=== PATIENT | female | born 1960 | race Caucasian/White ===

== ENCOUNTER 2018-03-27 18:04 | Inpatient (IN) | payer MEDICARE, OTHER ==
[~2018-03-27] VITALS: Ht 154.9 cm; Wt 71.2 kg
--- NOTE | 2018-03-27 21:04 | RAD ---
Indication: Fall, headache and neck pain. Dizziness. Technique: Noncontrast CT head was obtained. CT cervical spine includes axial images and coronal and sagittal reformatted images. Preliminary report was given around 5 hours. Study was not able to be dictated until closer to 2054 hours secondary to the [employer] down time. No comparison is available. One or more of the following individualized dose reduction techniques were utilized for this examination: 1. Automated exposure control 2. Adjustment of the mA and/or kV according to patient size 3. Use of iterative reconstruction technique Findings: Head: There is mild prominence of the ventricles and sulci. There is no acute intracranial hemorrhage or extra-axial fluid collection. There is no mass effect or midline shift. Ross-white differentiation is preserved. There is no depressed skull fracture. The included paranasal sinuses and mastoid air cells are clear. Cervical spine: C2 and C3 are fused, likely developmental. Anterolisthesis at C3-4 C5 measures 4 mm. There is otherwise no malalignment. There is no fracture. Prevertebral soft tissues are within normal limits. Craniovertebral junction is unremarkable. Facet hypertrophy is greatest on the left at C3-C4. Endplate spurring is greatest at C4-C5 and C5-C6. There may be mild canal stenosis at C4-C5 and at C5-C6. Foraminal narrowing at C5-C6 on the left is at least moderate. There is mild emphysema in the lung apices. IMPRESSION: 1. No acute intracranial findings. Brain parenchymal volume loss. 2. Negative for fracture or dislocation in the cervical spine. Degenerative changes. Electronically signed by: Tod Ocampo MD (03/27/2018 9:01 PM) [facility]
[2018-03-27] MEDS ORDERED: SMZ/TMP 800/160MG TABLET. PO ONE (21:30)
--- NOTE | 2018-03-27 22:27 | ED.ADGEN ---
Past History Past Medical History: Dementia, Depression, Other Past Surgical History: Other Adult General Chief Complaint Chief Complaint ".. She been so confused.. falling... She had TBI.. in past when working at [employer]... and not be right since... She falling.... now an much more confused.. They told me to bring her here and she could admitted to the [facility]..." ( ) [facility] HPI Patient is a 58 year old female who presents with above hx and complaints. ( See hand written charting- computer down.) . Patient has been extremely confused and unable to care in for her in her present confused stated. Pt. Wondering. Has unsteady gait. Has fallen. Pt has hx TBI- and never returned to baseline per . was told to bring pt to ED fro eval and admission to [facility]. No pre approval fouind. Review of Systems Review of Systems Constitutional: Denies fever or chills [] Eyes: Denies change in visual acuity, redness, or eye pain [] HENT: Denies nasal congestion or sore throat [] Respiratory: Denies cough or shortness of breath [] Cardiovascular: No additional information not addressed in HPI [] GI: Denies abdominal pain, nausea, vomiting, bloody stools or diarrhea [] : Denies dysuria or hematuria [] Musculoskeletal: Denies back pain or joint pain [] Integument: Denies rash or skin lesions [] Neurologic: Denies headache, focal weakness or sensory changes [] Endocrine: Denies polyuria or polydipsia [] All other systems were reviewed and found to be within normal limits, except as documented in this note. Family History Family History Noncontributory Current Medications Current Medications See nursing for home medications Allergies Allergies Allergic to latex and rubber and niacin Physical Exam Physical Exam Constitutional: no acute distress, appears very confused HENT: Normocephalic, atraumatic, bilateral external ears normal, oropharynx moist, no oral exudates, nose normal. [] Eyes: PERRLA, EOMI, conjunctiva normal, no discharge. [] Neck: Normal range of motion, no tenderness, supple, no stridor. [] Cardiovascular:Heart rate regular rhythm, no murmur []PMI to the left Lungs & Thorax: Bilateral breath sounds equal at apex auscultation [] Abdomen: Bowel sounds normal, soft, no tenderness, no masses, no pulsatile masses. []Obese Skin: Warm, dry, no erythema, no rash. [] Back: No tenderness, no CVA tenderness. [] Extremities: No tenderness, no cyanosis, no clubbing, ROM intact, no edema. [] Very wide unsteady gait. Neurologic: Alert x 2 No gross motor and sensory function, no gross focal deficits noted. []GCS- 15. Discoordinated. Pt. obviously confused. Distracted. Psychologic: Affect anxious, judgement limited insight, mood depressed Current Patient Data Lab Results Laboratory Tests Test 03/27/18 18:45 White Blood Count 8.2 x10^3/uL (4.0-11.0) Red Blood Count 4.56 x10^6/uL (3.50-5.40) Hemoglobin 12.3 g/dL (12.0-15.5) Hematocrit 37.7 % (36.0-47.0) Mean Corpuscular Volume 83 fL (79-100) Mean Corpuscular Hemoglobin 27 pg (25-35) Mean Corpuscular Hemoglobin Concent 33 g/dL (31-37) Red Cell Distribution Width 16.8 % (11.5-14.5) H Platelet Count 255 x10^3/uL (140-400) Neutrophils (%) (Auto) 66 % (31-73) Lymphocytes (%) (Auto) 26 % (24-48) Monocytes (%) (Auto) 6 % (0-9) Eosinophils (%) (Auto) 2 % (0-3) Basophils (%) (Auto) 1 % (0-3) Neutrophils # (Auto) 5.4 x10^3uL (1.8-7.7) Lymphocytes # (Auto) 2.1 x10^3/uL (1.0-4.8) Monocytes # (Auto) 0.5 x10^3/uL (0.0-1.1) Eosinophils # (Auto) 0.1 x10^3/uL (0.0-0.7) Basophils # (Auto) 0.0 x10^3/uL (0.0-0.2) Erythrocyte Sedimentation Rate 42 (0-25) H Prothrombin Time 11.3 SEC (9.4-11.4) Prothrombin Time INR 1.1 (0.9-1.1) PTT 24 SEC (23-33) Urine Collection Type Unknown Urine Color Colorless Urine Clarity Hazy Urine pH 6.0 Urine Specific Royal <=1.005 Urine Protein Neg (NEG-TRACE) Urine Glucose (UA) Neg mg/dL (NEG) Urine Ketones (Stick) Neg mg/dL (NEG) Urine Blood Neg (NEG) Urine Nitrite Pos (NEG) Urine Bilirubin Neg (NEG) Urine Urobilinogen Dipstick 0.2 mg/dL (0.2 mg/dL) Urine Leukocyte Esterase Mod (NEG) Urine RBC Occ /HPF (0-2) Urine WBC 5-10 /HPF (0-4) Urine Squamous Epithelial Cells Mod /LPF Urine Bacteria Mod /HPF (0-FEW) Sodium Level 140 mmol/L (136-145) Potassium Level 3.5 mmol/L (3.5-5.1) Chloride Level 103 mmol/L (98-107) Carbon Dioxide Level 30 mmol/L (21-32) Anion Gap 7 (6-14) Blood Urea Nitrogen 12 mg/dL (7-20) Creatinine 0.9 mg/dL (0.6-1.0) Estimated GFR (Cockcroft-Gault) 64.3 Glucose Level 104 mg/dL (70-99) H Calcium Level 9.4 mg/dL (8.5-10.1) Troponin I Quantitative < 0.017 ng/mL (0-0.055) Lipase 63 U/L (73-393) L EKG EKG My interpretation EKG shows a sinus rhythm at 65 bpm. No acute morphology. Has a left axis.[] Radiology/Procedures Radiology/Procedures My interpretation of CT of head shows no shift, mass, edema, bleed, or fracture. Does have atrophy or than expected for her age. CT of neck shows degenerative joint changes.[] There is some narrowing at C4 and C5. No obvious acute findings fracture/ dislocation. Course & Med Decision Making Course & Med Decision Making Pertinent Labs and Imaging studies reviewed. (See chart for details) Discussed presentation, testing and treatment plan Dr. Katz- met for further evaluation and treatment. Consult to . [] Final Impression Final Impression 1. Mental Status Change 2. Hx. Traumatic Brain Injury 3. UTI. [] 4. Dementia? Dragon Disclaimer Dragon Disclaimer This electronic medical record was generated, in whole or in part, using a voice recognition dictation system. LUIS BARROSO MD Mar 27, 2018 22:27
[2018-03-27 23:49] VITALS: BP 157/73
--- NOTE | 2018-03-28 00:02 | RAD ---
PA and lateral chest x-rays HISTORY: Fall, headache, neck pain and dizziness and weakness. FINDINGS: Heart size normal. Mediastinal silhouette is normal. No pneumothorax, pulmonary opacities or pleural effusions. Bones are unremarkable. IMPRESSION: No acute process. Electronically signed by: Rehan Jane MD (03/27/2018 11:59 PM) [facility] [place]
[2018-03-28] MEDS ORDERED: TELM20TA4 PO (01:03)
[2018-03-28] MEDS ORDERED: CELE-20 PO (01:03)
[2018-03-28] MEDS ORDERED: OXYB15TA PO (01:03)
[2018-03-28] MEDS ORDERED: OMEG1CAP6 PO (01:03)
[2018-03-28] MEDS ORDERED: ATEN50TA PO (01:03)
[2018-03-28] MEDS ORDERED: RISP1TAB3 PO (01:03)
[2018-03-28] MEDS ORDERED: TRAM50TA PO (01:03)
[2018-03-28] MEDS ORDERED: CLON1TAB4 PO (01:03)
[2018-03-28] MEDS ORDERED: CYCL-331 PO (01:03)
[2018-03-28] MEDS ORDERED: MONT10TA9 PO (01:03)
[2018-03-28] MEDS ORDERED: PRAZ2CAP2 PO (01:03)
[2018-03-28] MEDS ORDERED: MIRT15TA3 PO (01:03)
[2018-03-28] MEDS ORDERED: PANT40TA5 PO (01:03)
[2018-03-28] MEDS ORDERED: CITA40TA5 PO (01:03)
[2018-03-28] MEDS ORDERED: CHOL10003 PO (01:57)
--- NOTE | 2018-03-28 03:56 | EKG ---
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
[2018-03-28 05:07] VITALS: BP 109/53
[2018-03-28 06:46] LABS: BASO % 1 % (0-3); EOS # 0.1 x10^3/uL (0.0-0.7); EOS % 2 % (0-3); HEMATOCRIT 37.7 % (36.0-47.0); HEMOGLOBIN 12.3 g/dL (12.0-15.5); LYMPH # 2.1 x10^3/uL (1.0-4.8); LYMPH % 26 % (24-48); MEAN CORPUSCULAR HEMOGLOBIN 27 pg (25-35); MEAN CORPUSCULAR HGB CONC 33 g/dL (31-37); MEAN CORPUSCULAR VOLUME 83 fL (79-100); MONO # 0.5 x10^3/uL (0.0-1.1); MONO % 6 % (0-9); NEUT # 5.4 x10^3uL (1.8-7.7); NEUT % 66 % (31-73); PLATELET COUNT 255 x10^3/uL (140-400); RED BLOOD COUNT 4.56 x10^6/uL (3.50-5.40); RED CELL DISTRIBUTION WIDTH 16.8 % (11.5-14.5); WHITE BLOOD COUNT 8.2 x10^3/uL (4.0-11.0)
[2018-03-28 06:47] LABS: SEDIMENTATION RATE 42 (0-25)
[2018-03-28 06:48] LABS: CALCIUM 9.4 mg/dL (8.5-10.1); CREATININE 0.9 mg/dL (0.6-1.0); GFR 64.3; POTASSIUM 3.5 mmol/L (3.5-5.1)
[2018-03-28 06:50] LABS: BASO % 0 % (0-3); EOS # 0.2 x10^3/uL (0.0-0.7); EOS % 2 % (0-3); HEMATOCRIT 35.9 % (36.0-47.0); HEMOGLOBIN 11.8 g/dL (12.0-15.5); LYMPH # 2.2 x10^3/uL (1.0-4.8); LYMPH % 27 % (24-48); MEAN CORPUSCULAR HEMOGLOBIN 27 pg (25-35); MEAN CORPUSCULAR HGB CONC 33 g/dL (31-37); MEAN CORPUSCULAR VOLUME 83 fL (79-100); MONO # 0.7 x10^3/uL (0.0-1.1); MONO % 9 % (0-9); NEUT # 5.3 x10^3uL (1.8-7.7); NEUT % 62 % (31-73); PLATELET COUNT 253 x10^3/uL (140-400); RED BLOOD COUNT 4.33 x10^6/uL (3.50-5.40); RED CELL DISTRIBUTION WIDTH 17.2 % (11.5-14.5); WHITE BLOOD COUNT 8.4 x10^3/uL (4.0-11.0)
[2018-03-28 06:53] LABS: BACTERIA,URINE MOD /HPF (0-FEW); BILIRUBIN,URINE NEG (NEG); GLUCOSE,URINE NEG (NEG); NITRITE,URINE POS (NEG); RBC,URINE OCC /HPF (0-2); UROBILINOGEN,URINE 0.2 mg/dL (0.2 mg/dL)
[2018-03-28 06:54] LABS: CLARITY,URINE HAZY; COLOR,URINE COLORLESS; SQUAMOUS EPITHELIAL CELL,UR MOD /LPF
[2018-03-28 07:09] LABS: CALCIUM 8.7 mg/dL (8.5-10.1); CREATININE 0.9 mg/dL (0.6-1.0); GFR 64.3; POTASSIUM 3.2 mmol/L (3.5-5.1)
[2018-03-28] MEDS ORDERED: traMADol 50 MG TABLET PO PRN (08:00)
[2018-03-28] MEDS ORDERED: CYCLOBENZAPRINE 10 MG TABLET. PO PRN (08:00)
[2018-03-28] MEDS ORDERED: POTASSIUM CHLORIDE 20 MEQ TABLET.ER. PO ONE (08:15)
[2018-03-28] MEDS: clonazePAM 1 MG TABLET PO SCH ×3 (08:20→19:48)
[2018-03-28] MEDS: OMEGA-3 FATTY ACIDS/FISH OIL 1,000 MG CAPSULE. PO SCH (08:20)
[2018-03-28] MEDS: CHOLECALCIFEROL (VITAMIN D3) 1,000 UNIT TABLET PO SCH (08:20)
[2018-03-28] MEDS: CITALOPRAM 20 MG TABLET. PO SCH (08:20)
[2018-03-28] MEDS: PANTOPRAZOLE 40 MG TABLET. PO SCH (08:20)
[2018-03-28] MEDS: CELECOXIB 100 MG CAPSULE PO SCH (09:12)
[2018-03-28] MEDS: OXYBUTYNIN CHLORIDE 5 MG TABLET PO SCH ×3 (09:13→19:49)
[2018-03-28 10:44] VITALS: BP 143/76
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
[2018-03-28 14:30] VITALS: BP 113/72
[2018-03-28 19:25] VITALS: BP 129/81
[2018-03-28] MEDS: MIRTAZAPINE 7.5 MG TABLET. PO SCH (19:48)
[2018-03-28] MEDS: risperiDONE 1 MG TABLET. PO SCH (19:49)
[2018-03-28] MEDS: MONTELUKAST 10 MG TABLET. PO SCH (19:49)
[2018-03-28 22:17] VITALS: BP 127/83
--- NOTE | 2018-03-28 22:50 | PDOC ---
Exam Note: Bharathi Note: Please also refer to the separate dictated note~for this date of service dictated separately.~Patient seen individually. Discussed the patient with Nursing staff reviewed the chart.~Reviewed interim history and current functioning. Reviewed vital signs,~Labs/ Radiology~and current medications noted below. Continue current treatment with the changes noted in the dictated addendum note Assessment: Vital Signs: Vital Signs Date Time Temp Pulse Resp B/P (MAP) Pulse Ox O2 Delivery O2 Flow Rate FiO2 03/28/18 22:17 97.7 73 18 127/83 (98) 95 Room Air I&O Intake and Output 03/28/18 07:00 Intake Total 600 ml Balance 600 ml Intake Oral 600 ml # Voids 3 Labs: Laboratory Tests Test 03/28/18 06:21 White Blood Count 8.4 x10^3/uL (4.0-11.0) Red Blood Count 4.33 x10^6/uL (3.50-5.40) Hemoglobin 11.8 g/dL (12.0-15.5) L Hematocrit 35.9 % (36.0-47.0) L Mean Corpuscular Volume 83 fL (79-100) Mean Corpuscular Hemoglobin 27 pg (25-35) Mean Corpuscular Hemoglobin Concent 33 g/dL (31-37) Red Cell Distribution Width 17.2 % (11.5-14.5) H Platelet Count 253 x10^3/uL (140-400) Neutrophils (%) (Auto) 62 % (31-73) Lymphocytes (%) (Auto) 27 % (24-48) Monocytes (%) (Auto) 9 % (0-9) Eosinophils (%) (Auto) 2 % (0-3) Basophils (%) (Auto) 0 % (0-3) Neutrophils # (Auto) 5.3 x10^3uL (1.8-7.7) Lymphocytes # (Auto) 2.2 x10^3/uL (1.0-4.8) Monocytes # (Auto) 0.7 x10^3/uL (0.0-1.1) Eosinophils # (Auto) 0.2 x10^3/uL (0.0-0.7) Basophils # (Auto) 0.0 x10^3/uL (0.0-0.2) Sodium Level 141 mmol/L (136-145) Potassium Level 3.2 mmol/L (3.5-5.1) L Chloride Level 106 mmol/L (98-107) Carbon Dioxide Level 28 mmol/L (21-32) Anion Gap 7 (6-14) Blood Urea Nitrogen 9 mg/dL (7-20) Creatinine 0.9 mg/dL (0.6-1.0) Estimated GFR (Cockcroft-Gault) 64.3 Glucose Level 93 mg/dL (70-99) Calcium Level 8.7 mg/dL (8.5-10.1) Current Medications: Meds: Current Medications Vitamin D (Vitamin D3) 1,000 unit DAILY PO Last administered on 03/28/18 08:20 ; Start 03/28/18 at 09:00 Cyclobenzaprine HCl (Flexeril) 10 mg PRN BID PRN PO MUSCLE PAIN Last administered on 03/28/18 13:20; Start 03/28/18 at 08:00 Fish Oil (Fish Oil) 1,000 mg DAILY PO Last administered on 03/28/18 08:20; Start 03/28/18 at 09:00 Tramadol HCl (Ultram) 50 mg PRN BID PRN PO PAIN Last administered on 03/28/18 17:39; Start 03/28/18 at 08:00 Celecoxib (CeleBREX) 200 mg DAILY PO Last administered on 03/28/18 09:12; Start 03/28/18 at 09:00 Citalopram Hydrobromide (CeleXA) 40 mg DAILY PO Last administered on 03/28/18 08:20; Start 03/28/18 at 09:00 Clonazepam (KlonoPIN) 1 mg TID PO Last administered on 03/28/18 19:48; Start 03/28/18 at 09:00 Mirtazapine (Remeron) 7.5 mg QHS PO Last administered on 03/28/18 19:48; Start 03/28/18 at 21:00 Montelukast Sodium (Singulair) 10 mg QHS PO Last administered on 03/28/18 19: 49; Start 03/28/18 at 21:00 Oxybutynin Chloride (Ditropan) 5 mg [id number] PO Last administered on 7/13/18at 19 :49; Start 03/28/18 at 09:00 Pantoprazole Sodium (Protonix) 40 mg DAILYAC PO Last administered on 03/28/18at 08:20; Start 03/28/18 at 08:30 Risperidone (RisperDAL) 1.5 mg QHS PO Last administered on 03/28/18at 19:49; Start 03/28/18 at 21:00 Potassium Chloride (Klor-Con) 40 meq 1X ONCE PO Last administered on at 08:21; Start 03/28/18 at 08:15; Stop 03/28/18 at 08:16; Status DC Active Scripts Active Reported Vitamin D3 (Cholecalciferol (Vitamin D3)) 1,000 Unit Tablet 1,000 Unit PO DAILY LAST DOSE GIVEN: DATE: TIME: NEXT DOSE DUE: DATE: TIME: Celecoxib 200 Mg Capsule 200 Mg PO DAILY LAST DOSE GIVEN: DATE: TIME: NEXT DOSE DUE: DATE: TIME: Oxybutynin Chloride Er (Oxybutynin Chloride) 15 Mg Tab.er.24 15 Mg PO DAILY LAST DOSE GIVEN: DATE: TIME: NEXT DOSE DUE: DATE: TIME: Fish Oil 1,000 Mg Capsule ([place]-3 Fatty Acids/Fish Oil) 1 Each Capsule 1,000 Mg PO DAILY LAST DOSE GIVEN: DATE: TIME: NEXT DOSE DUE: DATE: TIME: Pantoprazole Sodium 40 Mg Tablet.dr 40 Mg PO DAILY LAST DOSE GIVEN: DATE: TIME: NEXT DOSE DUE: DATE: TIME: Montelukast Sodium Tablet (Montelukast Sodium) 10 Mg Tablet 10 Mg PO HS LAST DOSE GIVEN: DATE: TIME: NEXT DOSE DUE: DATE: TIME: Tramadol Hcl (Tramadol HCl) 50 Mg Tablet 50 Mg PO PRN BID PRN LAST DOSE GIVEN: DATE: TIME: NEXT DOSE DUE: DATE: TIME: Cyclobenzaprine Hcl 10 Mg Tablet 10 Mg PO PRN BID PRN LAST DOSE GIVEN: DATE: TIME: NEXT DOSE DUE: DATE: TIME: Telmisartan 20 Mg Tablet 20 Mg PO DAILY LAST DOSE GIVEN: DATE: TIME: NEXT DOSE DUE: DATE: TIME: Mirtazapine 15 Mg Tablet 7.5 Mg PO HS LAST DOSE GIVEN: DATE: TIME: NEXT DOSE DUE: DATE: TIME: Citalopram Hbr (Citalopram Hydrobromide) 40 Mg Tablet 40 Mg PO DAILY LAST DOSE GIVEN: DATE: TIME: NEXT DOSE DUE: DATE: TIME: Risperidone 1 Mg Tablet 1.5 Mg PO HS LAST DOSE GIVEN: DATE: TIME: NEXT DOSE DUE: DATE: TIME: Atenolol 50 Mg Tablet 50 Mg PO DAILY LAST DOSE GIVEN: DATE: TIME: NEXT DOSE DUE: DATE: TIME: Prazosin Hcl 2 Mg Capsule 2 Mg PO HS LAST DOSE GIVEN: DATE: TIME: NEXT DOSE DUE: DATE: TIME: Clonazepam 1 Mg Tablet 1 Mg PO TID LAST DOSE GIVEN: DATE: TIME: NEXT DOSE DUE: DATE: TIME: I have reviewed the current psychotropics carefully including drug interactions. Risk benefit ratio favors no change other than as noted in my dictated progress note. Diagnosis: Problems: (1) Anxiety disorder (2) Bipolar affective, mixed, sev w/ psych JULISSA ALLEN MD Mar 28, 2018 22:50
--- NOTE | 2018-03-28 22:54 | PN ---
DATE: 03/28/2018 SUBJECTIVE: The patient was admitted yesterday on the basis of crisis center referring them to [facility] for her to be admitted to [facility]. I do not have any specifics; however, her was not here. She stated that she is having difficulty swallowing and her voice has been slurred for almost 6 weeks now. Although, the bedside evaluation of swallowing was fine and she has no problem swallowing solids or liquids, although she said that she has more difficulty swallowing solids. PHYSICAL EXAMINATION: GENERAL: When I examined her this afternoon, she looked well and was clearly in no apparent respiratory distress, pale, but no jaundice, cyanosis or thyromegaly. No jugular venous distention. No limb edema. VITAL SIGNS: Her heart rate was 69, blood pressure 143/76, temperature was 97.4, respiratory rate was 20, and oxygen saturation was 96%. HEAD, EYES, EARS, NOSE AND THROAT: Showed normocephalic, atraumatic. NECK: Supple. HEART: Showed normal first and second heart sounds with no gallop, rub or murmur. CHEST: Clear to auscultation. No crepitation or rhonchi. ABDOMEN: Distended, soft, and nontender. No guarding or rigidity. No organomegaly. Hernial orifice intact. Bowel sounds normal. NEUROLOGIC: She is awake, alert, seems to have marked slurring of the speech with some nasal twang to it that she stated this started about 6 weeks ago. She does have some weakness of bilateral facial muscles with difficulty opening her mouth or showing her teeth; however, the strength in both the upper and lower extremities are normal. She does have some dysdiadochokinesis more so on the left than the right, although she is right handed. There is no clear evidence of cerebellar dysfunction and Romberg's test was negative. LABORATORY DATA: Her lab work this morning showed that her serum sodium was 141, potassium 3.2, chloride 106, bicarbonate 28, anion gap of 7, BUN 9, creatinine 0.9, estimated GFR was 64 mL per minute. Her glucose was 93, calcium was 8.7. Her white cell count was 8400, hemoglobin 12, hematocrit 36, MCV 83, and platelet count 253,000. Her urinalysis as stated showed the urine was colorless, hazy with a pH of 6, specific gravity 1.005. The urine was positive for nitrite and leukocyte esterase and the urine was positive also for leukocyte 5-10 wbc's, and moderate amount of bacteria. Urine culture is still pending at the time of this dictation. ASSESSMENT: Slurring of speech and dysphagia to solids that started about 6 weeks according to the patient with some clinical features suggestive that might have myasthenia gravis. I will consult Dr. Garcia for evaluation and treatment. JADIEL HAN MD DR: ASIF/mira JOB#: [id number] / [id number]
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
[2018-03-29 05:49] VITALS: BP 122/72
[2018-03-29 06:34] LABS: CALCIUM 8.6 mg/dL (8.5-10.1); GFR 56.9; MAGNESIUM 2.1 mg/dL (1.8-2.4); POTASSIUM 3.9 mmol/L (3.5-5.1)
[2018-03-29] MEDS: CHOLECALCIFEROL (VITAMIN D3) 1,000 UNIT TABLET PO SCH (08:42)
[2018-03-29] MEDS: CITALOPRAM 20 MG TABLET. PO SCH (08:42)
[2018-03-29] MEDS: CELECOXIB 100 MG CAPSULE PO SCH (08:42)
[2018-03-29] MEDS: OXYBUTYNIN CHLORIDE 5 MG TABLET PO SCH ×3 (08:42→20:37)
[2018-03-29] MEDS: clonazePAM 1 MG TABLET PO SCH ×3 (08:42→20:37)
[2018-03-29] MEDS: OMEGA-3 FATTY ACIDS/FISH OIL 1,000 MG CAPSULE. PO SCH (08:42)
[2018-03-29] MEDS: PANTOPRAZOLE 40 MG TABLET. PO SCH (08:42)
[2018-03-29 11:00] VITALS: BP 147/80
--- NOTE | 2018-03-29 11:36 | PN ---
DATE: 03/29/2018 SUBJECTIVE: The patient denies any new medical or neurological complaints. She eats and drinks and sleeps well. OBJECTIVE: GENERAL: Well-developed, well-nourished female, not in acute distress. VITAL SIGNS: Blood pressure 122/72, respiratory rate 16, pulse is 84 and regular, temperature is 97.2, oxygen saturation 93% on room air. HEENT: Normocephalic, atraumatic, otherwise unremarkable. NECK: Supple. Negative for carotid bruit, lymphadenopathy, or thyromegaly. LUNGS: Clear to A and P. CARDIOVASCULAR: Regular rate and rhythm. Normal S1, S2. There is no S3, S4, or murmur. ABDOMEN: Soft. Bowel sounds positive. EXTREMITIES: Negative for cyanosis, clubbing, or pitting edema. NEUROLOGIC: Mental status: The patient is alert and oriented x 3. Speech is slow with some articulation dysfunction. There is no language dysfunction. Memory, the patient recalls 2/3 after 1 and 3 minutes. Judgment abstract and thinking are fair. The patient denies hallucination or delusion. Cranial nerves are intact. No focal motor or sensory deficit. Deep tendon reflexes were symmetric and hypoactive with absent Achilles responses. Gait: The stance is steady. The patient walks a few steps in the room without a walker. IMPRESSION: 1. History of traumatic head injuries, followed by articulation dysfunction and slow speech. 2. Chronic localized lower back pain. 3. Possible early dementia, depressions, and posttraumatic stress disorders. RECOMMENDATIONS: Continue with current medical and psychiatric care. M Jenn REYES MD DR: STEPHANIE/mira JOB#: [id number] / [id number]
[2018-03-29 15:00] VITALS: BP 169/94
[2018-03-29 16:41] VITALS: BP 148/81
[2018-03-29 19:52] VITALS: BP 163/69
[2018-03-29] MEDS: risperiDONE 1 MG TABLET. PO SCH (20:37)
[2018-03-29] MEDS: MONTELUKAST 10 MG TABLET. PO SCH (20:37)
[2018-03-29] MEDS: MIRTAZAPINE 7.5 MG TABLET. PO SCH (20:37)
--- NOTE | 2018-03-29 21:06 | PDOC ---
Exam Note: Bharathi Note: Please also refer to the separate dictated note~for this date of service dictated separately.~Patient seen individually. Discussed the patient with Nursing staff reviewed the chart.~Reviewed interim history and current functioning. Reviewed vital signs,~Labs/ Radiology~and current medications noted below. Continue current treatment with the changes noted in the dictated addendum note Assessment: Vital Signs: Vital Signs Date Time Temp Pulse Resp B/P (MAP) Pulse Ox O2 Delivery O2 Flow Rate FiO2 03/29/18 19:52 97.7 66 18 163/69 (100) 96 Room Air I&O Intake and Output 03/29/18 07:00 Intake Total 756 ml Balance 756 ml Intake Oral 756 ml # Voids 4 Labs: Laboratory Tests Test 03/29/18 05:55 Sodium Level 142 mmol/L (136-145) Potassium Level 3.9 mmol/L (3.5-5.1) Chloride Level 107 mmol/L (98-107) Carbon Dioxide Level 29 mmol/L (21-32) Anion Gap 6 (6-14) Blood Urea Nitrogen 7 mg/dL (7-20) Creatinine 1.0 mg/dL (0.6-1.0) Estimated GFR (Cockcroft-Gault) 56.9 Glucose Level 99 mg/dL (70-99) Calcium Level 8.6 mg/dL (8.5-10.1) Magnesium Level 2.1 mg/dL (1.8-2.4) Creatine Kinase 91 U/L (26-192) Current Medications: Meds: Current Medications Vitamin D (Vitamin D3) 1,000 unit DAILY PO Last administered on 03/29/18at 08:42 ; Start 03/28/18 at 09:00 Cyclobenzaprine HCl (Flexeril) 10 mg PRN BID PRN PO MUSCLE PAIN Last administered on 03/28/18at 13:20; Start 03/28/18 at 08:00 Fish Oil (Fish Oil) 1,000 mg DAILY PO Last administered on 03/29/18at 08:42; Start 03/28/18 at 09:00 Tramadol HCl (Ultram) 50 mg PRN BID PRN PO PAIN Last administered on 03/28/18at 17:39; Start 03/28/18 at 08:00 Celecoxib (CeleBREX) 200 mg DAILY PO Last administered on 03/29/18 08:42; Start 03/28/18 at 09:00 Citalopram Hydrobromide (CeleXA) 40 mg DAILY PO Last administered on 03/29/18 08:42; Start 03/28/18 at 09:00 Clonazepam (KlonoPIN) 1 mg TID PO Last administered on 03/29/18 20:37; Start 03/28/18 at 09:00 Mirtazapine (Remeron) 7.5 mg QHS PO Last administered on 03/29/18 20:37; Start 03/28/18 at 21:00 Montelukast Sodium (Singulair) 10 mg QHS PO Last administered on 03/29/18 20: 37; Start 03/28/18 at 21:00 Oxybutynin Chloride (Ditropan) 5 mg [id number] PO Last administered on 03/29/18 20 :37; Start 03/28/18 at 09:00 Pantoprazole Sodium (Protonix) 40 mg DAILYAC PO Last administered on 03/29/18 08:42; Start 03/28/18 at 08:30 Risperidone (RisperDAL) 1.5 mg QHS PO Last administered on 03/29/18 20:37; Start 03/28/18 at 21:00 Potassium Chloride (Klor-Con) 40 meq 1X ONCE PO Last administered on 08:21; Start 03/28/18 at 08:15; Stop 03/28/18 at 08:16; Status DC Trimethoprim/ Sulfamethoxazole (Bactrim Ds) 1 tab STK-MED ONCE PO ; Start at 21:30; Stop 03/29/18 at 17:40; Status DC Active Scripts Active Reported Vitamin D3 (Cholecalciferol (Vitamin D3)) 1,000 Unit Tablet 1,000 Unit PO DAILY LAST DOSE GIVEN: DATE: TIME: NEXT DOSE DUE: DATE: TIME: Celecoxib 200 Mg Capsule 200 Mg PO DAILY LAST DOSE GIVEN: DATE: TIME: NEXT DOSE DUE: DATE: TIME: Oxybutynin Chloride Er (Oxybutynin Chloride) 15 Mg Tab.er.24 15 Mg PO DAILY LAST DOSE GIVEN: DATE: TIME: NEXT DOSE DUE: DATE: TIME: Fish Oil 1,000 Mg Capsule ([place]-3 Fatty Acids/Fish Oil) 1 Each Capsule 1,000 Mg PO DAILY LAST DOSE GIVEN: DATE: TIME: NEXT DOSE DUE: DATE: TIME: Pantoprazole Sodium 40 Mg Tablet.dr 40 Mg PO DAILY LAST DOSE GIVEN: DATE: TIME: NEXT DOSE DUE: DATE: TIME: Montelukast Sodium Tablet (Montelukast Sodium) 10 Mg Tablet 10 Mg PO HS LAST DOSE GIVEN: DATE: TIME: NEXT DOSE DUE: DATE: TIME: Tramadol Hcl (Tramadol HCl) 50 Mg Tablet 50 Mg PO PRN BID PRN LAST DOSE GIVEN: DATE: TIME: NEXT DOSE DUE: DATE: TIME: Cyclobenzaprine Hcl 10 Mg Tablet 10 Mg PO PRN BID PRN LAST DOSE GIVEN: DATE: TIME: NEXT DOSE DUE: DATE: TIME: Telmisartan 20 Mg Tablet 20 Mg PO DAILY LAST DOSE GIVEN: DATE: TIME: NEXT DOSE DUE: DATE: TIME: Mirtazapine 15 Mg Tablet 7.5 Mg PO HS LAST DOSE GIVEN: DATE: TIME: NEXT DOSE DUE: DATE: TIME: Citalopram Hbr (Citalopram Hydrobromide) 40 Mg Tablet 40 Mg PO DAILY LAST DOSE GIVEN: DATE: TIME: NEXT DOSE DUE: DATE: TIME: Risperidone 1 Mg Tablet 1.5 Mg PO HS LAST DOSE GIVEN: DATE: TIME: NEXT DOSE DUE: DATE: TIME: Atenolol 50 Mg Tablet 50 Mg PO DAILY LAST DOSE GIVEN: DATE: TIME: NEXT DOSE DUE: DATE: TIME: Prazosin Hcl 2 Mg Capsule 2 Mg PO HS LAST DOSE GIVEN: DATE: TIME: NEXT DOSE DUE: DATE: TIME: Clonazepam 1 Mg Tablet 1 Mg PO TID LAST DOSE GIVEN: DATE: TIME: NEXT DOSE DUE: DATE: TIME: I have reviewed the current psychotropics carefully including drug interactions. Risk benefit ratio favors no change other than as noted in my dictated progress note. Diagnosis: Problems: (1) Bipolar affective, mixed, sev w/ psych (2) Anxiety disorder (3) Altered mental status JULISSA ALLEN MD Mar 29, 2018 21:06
[2018-03-29 23:00] VITALS: BP 114/61
[2018-03-30 05:50] VITALS: BP 145/78
[2018-03-30] MEDS: OMEGA-3 FATTY ACIDS/FISH OIL 1,000 MG CAPSULE. PO SCH (08:47)
[2018-03-30] MEDS: OXYBUTYNIN CHLORIDE 5 MG TABLET PO SCH ×3 (08:47→20:03)
[2018-03-30] MEDS: CHOLECALCIFEROL (VITAMIN D3) 1,000 UNIT TABLET PO SCH (08:47)
[2018-03-30] MEDS: clonazePAM 1 MG TABLET PO SCH ×3 (08:47→20:03)
[2018-03-30] MEDS: PANTOPRAZOLE 40 MG TABLET. PO SCH (08:47)
[2018-03-30] MEDS: CITALOPRAM 20 MG TABLET. PO SCH (08:47)
[2018-03-30] MEDS: CELECOXIB 100 MG CAPSULE PO SCH (08:48)
[2018-03-30] MEDS ORDERED: SMZ/TMP 800/160MG TABLET. PO ONE (09:15)
[2018-03-30] MEDS ORDERED: SULF-143 PO (09:15)
--- NOTE | 2018-03-30 10:32 | PDOC ---
SUBJECTIVE: Progress note for March 29, 2018 evaluation. I find the patient sitting up in bed in good spirits. She denies any complaints and denies any difficulty with swallowing. RN reports the patient has been taking her medications without incident or evidence of dysphagia. She also reports the patient's behavior cognition and mentation have been normal. I discussed the findings of neurology and psychiatry evaluations with the patient. She is agreeable to stay for swallow study evaluation but refuses [facility] admission or even the thought of it. Her gait has been restored she's had no other falls or behavioral changes. OBJECTIVE: Problems: Problems Medical Problems: (1) Altered mental status Status: Acute Vital Signs: Vital Signs Date Time Temp Pulse Resp B/P (MAP) Pulse Ox O2 Delivery O2 Flow Rate FiO2 03/30/18 05:50 97.6 69 20 145/78 (100) 97 Room Air I & O Intake and Output 03/30/18 07:00 Intake Total 2780 ml Balance 2780 ml Intake Oral 2780 ml # Voids 11 Labs: Laboratory Tests Test 03/29/18 05:55 Sodium Level 142 mmol/L (136-145) Potassium Level 3.9 mmol/L (3.5-5.1) Chloride Level 107 mmol/L (98-107) Carbon Dioxide Level 29 mmol/L (21-32) Anion Gap 6 (6-14) Blood Urea Nitrogen 7 mg/dL (7-20) Creatinine 1.0 mg/dL (0.6-1.0) Estimated GFR (Cockcroft-Gault) 56.9 Glucose Level 99 mg/dL (70-99) Calcium Level 8.6 mg/dL (8.5-10.1) Magnesium Level 2.1 mg/dL (1.8-2.4) Creatine Kinase 91 U/L (26-192) Physical Exam: Gen.: No apparent distress alert and oriented 3 HEENT: Nose and throat clear mucous membranes pink and moist Neck: Supple nontender no lymphadenopathy Cardiovascular: Regular rate no murmur Pulmonary: Clear breath sounds bilaterally with good air movement no respiratory distress Abdomen: Soft nontender nondistended good bowel sounds Extremities: No clubbing cyanosis or edema Psychiatric: Good eye contact speech is normal, judgment and insight appear to be intact denies suicidal or homicidal ideation ASSESSMENT: Altered mental status (appears to be resolved) History of traumatic brain injury with some residual effects on speech Major depressive disorder and possibly bipolar her psychiatry PLAN: Patient will stay to get the swallow study done. In the interim we will continue to discuss possibility of [facility] evaluation. MAGNOLIA DAVILA DO Mar 30, 2018 10:31
--- NOTE | 2018-03-30 10:39 | PDOC3 ---
Discharge Summary Visit Information Date of Admission: Mar 28, 2018 Date of Discharge: Mar 30, 2018 Admitting Diagnosis: altered mental status, history of traumatic brain injury Final Diagnosis Problems Medical Problems: (1) Altered mental status Status: Acute Brief Hospital Course Allergies Allergies Coded Allergies Type Severity Reaction Last Updated Verified Latex, Natural Rubber Allergy Intermediate 03/27/18 Yes niacin Allergy Intermediate 03/27/18 Yes Vital Signs Vital Signs Date Time Temp Pulse Resp B/P (MAP) Pulse Ox O2 Delivery O2 Flow Rate FiO2 03/30/18 05:50 97.6 69 20 145/78 (100) 97 Room Air Lab Results Laboratory Tests Test 03/29/18 05:55 Sodium Level 142 mmol/L (136-145) Potassium Level 3.9 mmol/L (3.5-5.1) Chloride Level 107 mmol/L (98-107) Carbon Dioxide Level 29 mmol/L (21-32) Anion Gap 6 (6-14) Blood Urea Nitrogen 7 mg/dL (7-20) Creatinine 1.0 mg/dL (0.6-1.0) Estimated GFR (Cockcroft-Gault) 56.9 Glucose Level 99 mg/dL (70-99) Calcium Level 8.6 mg/dL (8.5-10.1) Magnesium Level 2.1 mg/dL (1.8-2.4) Creatine Kinase 91 U/L (26-192) Brief Hospital Course Ms. Urbano is a 58 old female who presented to the emergency department with a report of some altered behavior and mental status as well as gait changes indicating possible fall risk. She was extensively evaluated in the emergency department, CT evaluation of the head and cervical spine were negative for acute process. She was admitted to the hospital for further evaluation and neurology and psychiatry consultations were requested. Neurology has recommended that if she continues to have swallow difficulties she should undergo a swallow study administered by a speech pathologist. Psychiatry as indicated that the possibility patient might qualify for [facility] admission and medication titration. She has remained stable as an inpatient for the past 48 hours, she has been calm and cooperative and in no aberrant behavior noted. She lives at home with her spouse and follows with psychiatry at the [facility]. This morning she finds out it may be another day before she can get an inpatient swallow study and she is requesting discharge home. She has had no swallowing difficulties with her medications but does agree to seek an outpatient study with her PCP. She has an appointment scheduled with the [facility] for April 14 and continues to deny any suicidal or homicidal ideation. She had equivocal urinalysis on admission I will discharge her with Bactrim DS prescription. Discharge Information Condition at Discharge: Improved Follow Up: Weeks (as scheduled) Disposition/Orders: D/C to Home Dischare Medications Current Medications Vitamin D (Vitamin D3) 1,000 unit DAILY PO Last administered on 03/30/18 08:47 ; Start 03/28/18 at 09:00 Cyclobenzaprine HCl (Flexeril) 10 mg PRN BID PRN PO MUSCLE PAIN Last administered on 03/28/18 13:20; Start 03/28/18 at 08:00 Fish Oil (Fish Oil) 1,000 mg DAILY PO Last administered on 03/30/18 08:47; Start 03/28/18 at 09:00 Tramadol HCl (Ultram) 50 mg PRN BID PRN PO PAIN Last administered on 03/28/18 17:39; Start 03/28/18 at 08:00 Celecoxib (CeleBREX) 200 mg DAILY PO Last administered on 03/30/18 08:48; Start 03/28/18 at 09:00 Citalopram Hydrobromide (CeleXA) 40 mg DAILY PO Last administered on 03/30/18 08:47; Start 03/28/18 at 09:00 Clonazepam (KlonoPIN) 1 mg TID PO Last administered on 03/30/18 08:47; Start 03/28/18 at 09:00 Mirtazapine (Remeron) 7.5 mg QHS PO Last administered on 03/29/18 20:37; Start 03/28/18 at 21:00 Montelukast Sodium (Singulair) 10 mg QHS PO Last administered on 03/29/18 20: 37; Start 03/28/18 at 21:00 Oxybutynin Chloride (Ditropan) 5 mg [id number] PO Last administered on 03/30/18 08 :47; Start 03/28/18 at 09:00 Pantoprazole Sodium (Protonix) 40 mg DAILYAC PO Last administered on 03/30/18 08:47; Start 03/28/18 at 08:30 Risperidone (RisperDAL) 1.5 mg QHS PO Last administered on 03/29/18at 20:37; Start 03/28/18 at 21:00 Potassium Chloride (Klor-Con) 40 meq 1X ONCE PO Last administered on at 08:21; Start 03/28/18 at 08:15; Stop 03/28/18 at 08:16; Status DC Trimethoprim/ Sulfamethoxazole (Bactrim Ds) 1 tab STK-MED ONCE PO ; Start at 21:30; Stop 03/29/18 at 17:40; Status DC Trimethoprim/ Sulfamethoxazole (Bactrim Ds) 1 tab BID PO ; Start 03/30/18 at 21: 00 Trimethoprim/ Sulfamethoxazole (Bactrim Ds) 1 tab 1X ONCE PO ; Start 03/30/18 at 09:15; Stop 03/30/18 at 09:16; Status DC Lactobacillus Rhamnosus (Culturelle) 1 cap BID PO ; Start 03/30/18 at 21:00 Active Scripts Active Sulfamethoxazole-Tmp Ds Tablet (Sulfamethoxazole/Trimethoprim) 1 Each Tablet 1 Tab PO BID 7 Days Reported Vitamin D3 (Cholecalciferol (Vitamin D3)) 1,000 Unit Tablet 1,000 Unit PO DAILY LAST DOSE GIVEN: DATE: TIME: NEXT DOSE DUE: DATE: TIME: Celecoxib 200 Mg Capsule 200 Mg PO DAILY LAST DOSE GIVEN: DATE: TIME: NEXT DOSE DUE: DATE: TIME: Oxybutynin Chloride Er (Oxybutynin Chloride) 15 Mg Tab.er.24 15 Mg PO DAILY LAST DOSE GIVEN: DATE: TIME: NEXT DOSE DUE: DATE: TIME: Fish Oil 1,000 Mg Capsule (Edmond-3 Fatty Acids/Fish Oil) 1 Each Capsule 1,000 Mg PO DAILY LAST DOSE GIVEN: DATE: TIME: NEXT DOSE DUE: DATE: TIME: Pantoprazole Sodium 40 Mg Tablet.dr 40 Mg PO DAILY LAST DOSE GIVEN: DATE: TIME: NEXT DOSE DUE: DATE: TIME: Montelukast Sodium Tablet (Montelukast Sodium) 10 Mg Tablet 10 Mg PO HS LAST DOSE GIVEN: DATE: TIME: NEXT DOSE DUE: DATE: TIME: Tramadol Hcl (Tramadol HCl) 50 Mg Tablet 50 Mg PO PRN BID PRN LAST DOSE GIVEN: DATE: TIME: NEXT DOSE DUE: DATE: TIME: Cyclobenzaprine Hcl 10 Mg Tablet 10 Mg PO PRN BID PRN LAST DOSE GIVEN: DATE: TIME: NEXT DOSE DUE: DATE: TIME: Telmisartan 20 Mg Tablet 20 Mg PO DAILY LAST DOSE GIVEN: DATE: TIME: NEXT DOSE DUE: DATE: TIME: Mirtazapine 15 Mg Tablet 7.5 Mg PO HS LAST DOSE GIVEN: DATE: TIME: NEXT DOSE DUE: DATE: TIME: Citalopram Hbr (Citalopram Hydrobromide) 40 Mg Tablet 40 Mg PO DAILY LAST DOSE GIVEN: DATE: TIME: NEXT DOSE DUE: DATE: TIME: Risperidone 1 Mg Tablet 1.5 Mg PO HS LAST DOSE GIVEN: DATE: TIME: NEXT DOSE DUE: DATE: TIME: Atenolol 50 Mg Tablet 50 Mg PO DAILY LAST DOSE GIVEN: DATE: TIME: NEXT DOSE DUE: DATE: TIME: Prazosin Hcl 2 Mg Capsule 2 Mg PO HS LAST DOSE GIVEN: DATE: TIME: NEXT DOSE DUE: DATE: TIME: Clonazepam 1 Mg Tablet 1 Mg PO TID LAST DOSE GIVEN: DATE: TIME: NEXT DOSE DUE: DATE: TIME: MAGNOLIA DAVILA DO Mar 30, 2018 10:39
[2018-03-30 11:57] VITALS: BP 163/98
[2018-03-30] MEDS: SMZ/TMP 800/160MG TABLET. PO SCH ×2 (15:00→20:03)
[2018-03-30 15:08] VITALS: BP 157/94
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
[2018-03-30 18:39] VITALS: BP 163/92
--- NOTE | 2018-03-30 18:42 | PN ---
DATE: 03/29/2018 PSYCHIATRIC PROGRESS NOTE This is a late entry 03/29/2018, covers elements not covered in my initial note. SUBJECTIVE: I met with the patient in the evening. Per nursing report, she continues to have some mood lability, ongoing anxiety, somewhat hyperverbal at times. No suicidal or homicidal ideation. REVIEW OF SYSTEMS: No CV, , pulmonary, eye system symptoms on review. MENTAL STATUS EXAM: Reasonably oriented. Speech coherent, somewhat pressured. Abstraction fair, computation impaired, language function intact, attention span short. Mood and affect remain somewhat labile. Careful review of her history raises a question of diagnosis of bipolar disorder. In the past, she has just been treated for major depressive disorder. She remains somewhat hyperverbal . CURRENT PSYCHOTROPICS: Klonopin 1 mg 3 times a day, Celexa 40 mg a day, Remeron 7.5 mg at bedtime, Risperdal 1.5 mg p.o. at bedtime. Given her probable diagnosis of bipolar mixed perhaps she should be on a mood stabilizer, which would minimize the usage of atypical antipsychotics like Risperdal at the current dosage. She does admit to a past history of hallucinations and paranoia. Denies any at this time. IMPRESSION: Probable bipolar 1 disorder, mixed; anxiety disorder, unspecified; history of major depressive disorder with psychotic features. Rest unchanged. PLAN: From a psychiatric standpoint, she is being treated for UTI and I leave all her psychotropics unchanged and we will probably have to defer to Dr. Stevenson, her outpatient psychiatrist whether mood stabilizes would be indicated for reasons mentioned above. MAN Cassy ALLEN MD DR: MILLER/mira JOB#: [id number] / [id number]
[2018-03-30] MEDS: MIRTAZAPINE 7.5 MG TABLET. PO SCH (20:03)
[2018-03-30] MEDS: MONTELUKAST 10 MG TABLET. PO SCH (20:03)
[2018-03-30] MEDS: risperiDONE 1 MG TABLET. PO SCH (20:03)
--- NOTE | 2018-03-30 20:10 | PDOC ---
Exam Note: Bharathi Note: Please also refer to the separate dictated note~for this date of service dictated separately.~Patient seen individually. Discussed the patient with Nursing staff reviewed the chart.~Reviewed interim history and current functioning. Reviewed vital signs,~Labs/ Radiology~and current medications noted below. Continue current treatment with the changes noted in the dictated addendum note Assessment: Vital Signs: Vital Signs Date Time Temp Pulse Resp B/P (MAP) Pulse Ox O2 Delivery O2 Flow Rate FiO2 03/30/18 18:39 97.4 95 20 163/92 (115) 96 Room Air I&O Intake and Output 03/30/18 07:00 Intake Total 2780 ml Balance 2780 ml Intake Oral 2780 ml # Voids 11 Current Medications: Meds: Current Medications Vitamin D (Vitamin D3) 1,000 unit DAILY PO Last administered on 03/30/18 08:47 ; Start 03/28/18 at 09:00 Cyclobenzaprine HCl (Flexeril) 10 mg PRN BID PRN PO MUSCLE PAIN Last administered on 03/28/18 13:20; Start 03/28/18 at 08:00 Fish Oil (Fish Oil) 1,000 mg DAILY PO Last administered on 03/30/18 08:47; Start 03/28/18 at 09:00 Tramadol HCl (Ultram) 50 mg PRN BID PRN PO PAIN Last administered on 03/28/18 17:39; Start 03/28/18 at 08:00 Celecoxib (CeleBREX) 200 mg DAILY PO Last administered on 03/30/18 08:48; Start 03/28/18 at 09:00 Citalopram Hydrobromide (CeleXA) 40 mg DAILY PO Last administered on 03/30/18 08:47; Start 03/28/18 at 09:00 Clonazepam (KlonoPIN) 1 mg TID PO Last administered on 03/30/18 20:03; Start 03/28/18 at 09:00 Mirtazapine (Remeron) 7.5 mg QHS PO Last administered on 03/30/18 20:03; Start 03/28/18 at 21:00 Montelukast Sodium (Singulair) 10 mg QHS PO Last administered on 03/30/18 20: 03; Start 03/28/18 at 21:00 Oxybutynin Chloride (Ditropan) 5 mg [id number] PO Last administered on 03/30/18at 20 :03; Start 03/28/18 at 09:00 Pantoprazole Sodium (Protonix) 40 mg DAILYAC PO Last administered on 03/30/18at 08:47; Start 03/28/18 at 08:30 Risperidone (RisperDAL) 1.5 mg QHS PO Last administered on 03/30/18at 20:03; Start 03/28/18 at 21:00 Potassium Chloride (Klor-Con) 40 meq 1X ONCE PO Last administered on at 08:21; Start 03/28/18 at 08:15; Stop 03/28/18 at 08:16; Status DC Trimethoprim/ Sulfamethoxazole (Bactrim Ds) 1 tab STK-MED ONCE PO ; Start at 21:30; Stop 03/29/18 at 17:40; Status DC Trimethoprim/ Sulfamethoxazole (Bactrim Ds) 1 tab BID PO Last administered on at 20:03; Start 03/30/18 at 15:00 Trimethoprim/ Sulfamethoxazole (Bactrim Ds) 1 tab 1X ONCE PO Last administered on 03/30/18at 15:04; Start 03/30/18 at 09:15; Stop 03/30/18 at 09:16 ; Status DC Lactobacillus Rhamnosus (Culturelle) 1 cap BID PO Last administered on at 20:03; Start 03/30/18 at 21:00 Active Scripts Active Sulfamethoxazole-Tmp Ds Tablet (Sulfamethoxazole/Trimethoprim) 1 Each Tablet 1 Tab PO BID 7 Days Reported Vitamin D3 (Cholecalciferol (Vitamin D3)) 1,000 Unit Tablet 1,000 Unit PO DAILY LAST DOSE GIVEN: DATE: TIME: NEXT DOSE DUE: DATE: TIME: Celecoxib 200 Mg Capsule 200 Mg PO DAILY LAST DOSE GIVEN: DATE: TIME: NEXT DOSE DUE: DATE: TIME: Oxybutynin Chloride Er (Oxybutynin Chloride) 15 Mg Tab.er.24 15 Mg PO DAILY LAST DOSE GIVEN: DATE: TIME: NEXT DOSE DUE: DATE: TIME: Fish Oil 1,000 Mg Capsule (Laurel-3 Fatty Acids/Fish Oil) 1 Each Capsule 1,000 Mg PO DAILY LAST DOSE GIVEN: DATE: TIME: NEXT DOSE DUE: DATE: TIME: Pantoprazole Sodium 40 Mg Tablet.dr 40 Mg PO DAILY LAST DOSE GIVEN: DATE: TIME: NEXT DOSE DUE: DATE: TIME: Montelukast Sodium Tablet (Montelukast Sodium) 10 Mg Tablet 10 Mg PO HS LAST DOSE GIVEN: DATE: TIME: NEXT DOSE DUE: DATE: TIME: Tramadol Hcl (Tramadol HCl) 50 Mg Tablet 50 Mg PO PRN BID PRN LAST DOSE GIVEN: DATE: TIME: NEXT DOSE DUE: DATE: TIME: Cyclobenzaprine Hcl 10 Mg Tablet 10 Mg PO PRN BID PRN LAST DOSE GIVEN: DATE: 03/30/18 TIME: 09 NEXT DOSE DUE: DATE:03/31/18 TIME:09 Telmisartan 20 Mg Tablet 20 Mg PO DAILY LAST DOSE GIVEN: DATE: TIME: NEXT DOSE DUE: DATE: TIME: Mirtazapine 15 Mg Tablet 7.5 Mg PO HS LAST DOSE GIVEN: DATE: TIME: NEXT DOSE DUE: DATE: TIME: Citalopram Hbr (Citalopram Hydrobromide) 40 Mg Tablet 40 Mg PO DAILY LAST DOSE GIVEN: DATE: TIME: NEXT DOSE DUE: DATE: TIME: Risperidone 1 Mg Tablet 1.5 Mg PO HS LAST DOSE GIVEN: DATE: TIME: NEXT DOSE DUE: DATE: TIME: Atenolol 50 Mg Tablet 50 Mg PO DAILY LAST DOSE GIVEN: DATE: TIME: NEXT DOSE DUE: DATE: TIME: Prazosin Hcl 2 Mg Capsule 2 Mg PO HS LAST DOSE GIVEN: DATE: TIME: NEXT DOSE DUE: DATE: TIME: Clonazepam 1 Mg Tablet 1 Mg PO TID LAST DOSE GIVEN: DATE: TIME: NEXT DOSE DUE: DATE: TIME: I have reviewed the current psychotropics carefully including drug interactions. Risk benefit ratio favors no change other than as noted in my dictated progress note. Diagnosis: Problems: (1) Bipolar affective, mixed, sev w/ psych (2) Anxiety disorder (3) UTI (urinary tract infection) JULISSA ALLEN MD Mar 30, 2018 20:10
[2018-03-30] MEDS ORDERED: LACTOBACILLUS RHAMNOSUS GG 1 CAPSULE. PO SCH (21:00)
== END 2018-03-30 21:10 | DRG 689 ==
LOC: ER 18:04 → 1 SOUTH 22:30
PROVIDERS: ADMIT Internal Medicine; ATTEND Internal Medicine
DX: N39.0 Urinary tract infection, site not specified (principal); G92 Toxic encephalopathy; F31.64 Bipolar disorder, current episode mixed, severe, with psychotic features; F03.90 Unspecified dementia, unspecified severity, without behavioral disturbance, psychotic disturbance, mood disturbance, and anxiety; G89.29 Other chronic pain; I10 Essential (primary) hypertension; F41.1 Generalized anxiety disorder; M50.30 Other cervical disc degeneration, unspecified cervical region; R13.10 Dysphagia, unspecified; F09 Unspecified mental disorder due to known physiological condition; R26.81 Unsteadiness on feet; M54.5 Low back pain; R47.81 Slurred speech; R29.6 Repeated falls; Z79.899 Other long term (current) drug therapy; Z80.1 Family history of malignant neoplasm of trachea, bronchus and lung; Z85.41 Personal history of malignant neoplasm of cervix uteri; Z87.820 Personal history of traumatic brain injury; Z91.040 Latex allergy status; Z91.048 Other nonmedicinal substance allergy status
CPT/HCPCS: 36415; 70450; 71046; 72125; 80048; 81001; 82550; 83690; 83735; 84443; 84484; 85025; 85610; 85651; 85730; 87086; 93005; 99285-25

== ENCOUNTER 2018-03-30 20:30 | Inpatient (IN) | payer MEDICARE, OTHER ==
[~2018-03-30] VITALS: Ht 162.6 cm; Wt 71.2 kg
[~2018-03-30 20:30] MED LIST: ATEN50TA PO; CELE-20 PO; CHOL10003 PO; CITA40TA5 PO; CLON1TAB4 PO; CYCL-331 PO; MIRT15TA3 PO; MONT10TA9 PO; OMEG1CAP6 PO; OXYB15TA PO; PANT40TA5 PO; PRAZ2CAP2 PO; RISP1TAB3 PO; SULF-143 PO; TELM20TA4 PO; TRAM50TA PO
[2018-03-30] MEDS ORDERED: ACETAMINOPHEN 325 MG TABLET PO PRN (23:15)
[2018-03-30] MEDS ORDERED: METHYL SALICYLATE/MENTHOL TOPICAL OINTMENT 29GM TUBE. TP PRN (23:15)
[2018-03-30] MEDS ORDERED: MAGNESIUM HYDROXIDE 2,400 MG/30 ML ORAL.SUSP. PO PRN (23:15)
[2018-03-30] MEDS ORDERED: MAG HYDROX/AL HYDROX/SIMETH 30 ML ORAL.SUSP PO PRN (23:15)
[2018-03-30] MEDS ORDERED: traMADol 50 MG TABLET PO PRN (23:30)
[2018-03-30] MEDS ORDERED: CYCLOBENZAPRINE 10 MG TABLET. PO PRN (23:30)
[2018-03-31 01:25] VITALS: BP 161/88
[2018-03-31 06:20] VITALS: BP 139/80
[2018-03-31 06:44] LABS: BASO % 1 % (0-3); EOS # 0.3 x10^3/uL (0.0-0.7); EOS % 3 % (0-3); HEMATOCRIT 35.8 % (36.0-47.0); HEMOGLOBIN 11.8 g/dL (12.0-15.5); LYMPH # 2.6 x10^3/uL (1.0-4.8); LYMPH % 24 % (24-48); MEAN CORPUSCULAR HEMOGLOBIN 27 pg (25-35); MEAN CORPUSCULAR HGB CONC 33 g/dL (31-37); MEAN CORPUSCULAR VOLUME 83 fL (79-100); MONO # 0.7 x10^3/uL (0.0-1.1); MONO % 6 % (0-9); NEUT # 7.1 x10^3uL (1.8-7.7); NEUT % 67 % (31-73); PLATELET COUNT 265 x10^3/uL (140-400); RED BLOOD COUNT 4.32 x10^6/uL (3.50-5.40); RED CELL DISTRIBUTION WIDTH 16.9 % (11.5-14.5); WHITE BLOOD COUNT 10.7 x10^3/uL (4.0-11.0)
[2018-03-31 06:53] LABS: ALBUMIN 3.2 g/dL (3.4-5.0); ALBUMIN/GLOBULIN RATIO 0.8 (1.0-1.7); CALCIUM 9.1 mg/dL (8.5-10.1); GFR 56.9; MAGNESIUM 1.9 mg/dL (1.8-2.4); POTASSIUM 3.5 mmol/L (3.5-5.1); TOTAL BILIRUBIN 0.2 mg/dL (0.2-1.0); TOTAL PROTEIN 7.3 g/dL (6.4-8.2)
[2018-03-31] MEDS: clonazePAM 1 MG TABLET PO SCH ×3 (08:25→19:44)
[2018-03-31] MEDS: ATENOLOL 50 MG TABLET PO SCH (08:25)
[2018-03-31] MEDS: OMEGA-3 FATTY ACIDS/FISH OIL 1,000 MG CAPSULE. PO SCH (08:25)
[2018-03-31] MEDS: CHOLECALCIFEROL (VITAMIN D3) 1,000 UNIT TABLET PO SCH (08:26)
[2018-03-31] MEDS: SMZ/TMP 800/160MG TABLET. PO SCH ×2 (08:26→19:44)
[2018-03-31] MEDS: LOSARTAN 25 MG TABLET. PO SCH (08:26)
[2018-03-31] MEDS: OXYBUTYNIN CHLORIDE 5 MG TABLET PO SCH ×3 (08:26→19:44)
[2018-03-31] MEDS: CELECOXIB 100 MG CAPSULE PO SCH (08:26)
[2018-03-31] MEDS: PANTOPRAZOLE 40 MG TABLET. PO SCH (08:27)
[2018-03-31] MEDS ORDERED: CITALOPRAM 20 MG TABLET. PO SCH (09:00)
[2018-03-31 12:38] LABS: THYROID STIM HORMONE (TSH) 3.783 uIU/mL (0.358-3.740)
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
[2018-03-31 16:08] VITALS: BP 137/86
[2018-03-31] MEDS: LACTOBACILLUS RHAMNOSUS GG 1 CAPSULE. PO SCH (19:48)
[2018-03-31] MEDS: MONTELUKAST 10 MG TABLET. PO SCH (19:48)
[2018-03-31] MEDS: PRAZOSIN 1 MG CAPSULE. PO SCH (19:49)
[2018-03-31] MEDS: MIRTAZAPINE 7.5 MG TABLET. PO SCH (19:49)
[2018-03-31] MEDS: risperiDONE 0.5 MG TABLET. PO SCH (19:49)
--- NOTE | 2018-03-31 20:34 | PDOC ---
Exam Note: Bharathi Note: Please also refer to the separate dictated note~for this date of service dictated separately.~Patient seen individually. Discussed the patient with Nursing staff reviewed the chart.~Reviewed interim history and current functioning. Reviewed vital signs,~Labs/ Radiology~and current medications noted below. Continue current treatment with the changes noted in the dictated addendum note Assessment: Vital Signs: Vital Signs Date Time Temp Pulse Resp B/P (MAP) Pulse Ox O2 Delivery O2 Flow Rate FiO2 03/31/18 19:49 85 137/86 03/31/18 16:08 97.3 18 97 03/31/18 06:20 Room Air I&O Intake and Output 03/31/18 06:59 Intake Total 240 ml Balance 240 ml Intake Oral 240 ml # Voids 1 Labs: Laboratory Tests Test 03/31/18 05:58 White Blood Count 10.7 x10^3/uL (4.0-11.0) Red Blood Count 4.32 x10^6/uL (3.50-5.40) Hemoglobin 11.8 g/dL (12.0-15.5) L Hematocrit 35.8 % (36.0-47.0) L Mean Corpuscular Volume 83 fL (79-100) Mean Corpuscular Hemoglobin 27 pg (25-35) Mean Corpuscular Hemoglobin Concent 33 g/dL (31-37) Red Cell Distribution Width 16.9 % (11.5-14.5) H Platelet Count 265 x10^3/uL (140-400) Neutrophils (%) (Auto) 67 % (31-73) Lymphocytes (%) (Auto) 24 % (24-48) Monocytes (%) (Auto) 6 % (0-9) Eosinophils (%) (Auto) 3 % (0-3) Basophils (%) (Auto) 1 % (0-3) Neutrophils # (Auto) 7.1 x10^3uL (1.8-7.7) Lymphocytes # (Auto) 2.6 x10^3/uL (1.0-4.8) Monocytes # (Auto) 0.7 x10^3/uL (0.0-1.1) Eosinophils # (Auto) 0.3 x10^3/uL (0.0-0.7) Basophils # (Auto) 0.0 x10^3/uL (0.0-0.2) Sodium Level 139 mmol/L (136-145) Potassium Level 3.5 mmol/L (3.5-5.1) Chloride Level 105 mmol/L (98-107) Carbon Dioxide Level 26 mmol/L (21-32) Anion Gap 8 (6-14) Blood Urea Nitrogen 11 mg/dL (7-20) Creatinine 1.0 mg/dL (0.6-1.0) Estimated GFR (Cockcroft-Gault) 56.9 BUN/Creatinine Ratio 11 (6-20) Glucose Level 100 mg/dL (70-99) H Calcium Level 9.1 mg/dL (8.5-10.1) Magnesium Level 1.9 mg/dL (1.8-2.4) Total Bilirubin 0.2 mg/dL (0.2-1.0) Aspartate Amino Transferase (AST) 20 U/L (15-37) Alanine Aminotransferase (ALT) 19 U/L (14-59) Alkaline Phosphatase 123 U/L (46-116) H Total Protein 7.3 g/dL (6.4-8.2) Albumin 3.2 g/dL (3.4-5.0) L Albumin/Globulin Ratio 0.8 (1.0-1.7) L Triglycerides Level 146 mg/dL (0-150) Cholesterol Level 178 mg/dL (0-200) LDL Cholesterol, Calculated 104 mg/dL (0-100) H VLDL Cholesterol, Calculated 29 mg/dL (0-40) Non-HDL Cholesterol Calculated 133 mg/dL (0-129) H HDL Cholesterol 45 mg/dL (40-60) Cholesterol/HDL Ratio 3.0 Vitamin B12 Level 440 pg/mL (247-911) 25-Hydroxy Vitamin D Total 29.3 ng/mL (30-100) L Thyroid Stimulating Hormone (TSH) 3.783 uIU/mL (0.358-3.740) Treponema pallidum Antibody Nonreactive (Nonreactive) Current Medications: Meds: Current Medications Acetaminophen (Tylenol) 650 mg PRN Q6HRS PRN PO PAIN / TEMP; Start 03/30/18 at 23:15 Multi-Ingredient Ointment (Analgesic [place]) 1 maikel PRN QID PRN TP MUSCLE PAIN; Start 03/30/18 at 23:15 Al Hydroxide/Mg Hydroxide (Mylanta Plus Xs) 15 ml PRN AFTMEALHC PRN PO DYSPEPSIA; Start 03/30/18 at 23:15 Magnesium Hydroxide (Milk Of Magnesia) 2,400 mg PRN QHS PRN PO CONSTIPATION; Start 03/30/18 at 23:15 Vitamin D (Vitamin D3) 1,000 unit DAILY PO Last administered on 03/31/18at 08:26 ; Start 03/31/18 at 09:00 Cyclobenzaprine HCl (Flexeril) 10 mg PRN BID PRN PO MUSCLE PAIN; Start at 23:30 Fish Oil (Fish Oil) 1,000 mg DAILY PO Last administered on 03/31/18at 08:25; Start 03/31/18 at 09:00 Trimethoprim/ Sulfamethoxazole (Bactrim Ds) 1 tab BID PO Last administered on at 19:44; Start 03/31/18 at 09:00 Tramadol HCl (Ultram) 50 mg PRN BID PRN PO PAIN; Start 03/30/18 at 23:30 Atenolol (Tenormin) 50 mg DAILY PO Last administered on 03/31/18at 08:25; Start 03/31/18 at 09:00 Celecoxib (CeleBREX) 200 mg DAILY PO Last administered on 03/31/18at 08:26; Start 03/31/18 at 09:00 Citalopram Hydrobromide (CeleXA) 40 mg DAILY PO Last administered on 03/31/18at 08:26; Start 03/31/18 at 09:00; Stop 03/31/18 at 19:31; Status DC Clonazepam (KlonoPIN) 1 mg TID PO Last administered on 03/31/18 19:44; Start 03/31/18 at 09:00 Mirtazapine (Remeron) 7.5 mg HS PO Last administered on 03/31/18 19:49; Start 03/31/18 at 21:00 Montelukast Sodium (Singulair) 10 mg HS PO Last administered on 03/31/18 19:48 ; Start 03/31/18 at 21:00 Oxybutynin Chloride (Ditropan) 5 mg TID PO Last administered on 03/31/18at 19:44 ; Start 03/31/18 at 09:00 Pantoprazole Sodium (Protonix) 40 mg DAILYAC PO Last administered on 03/31/18at 08:27; Start 03/31/18 at 07:30 Prazosin HCl (Minipress) 2 mg HS PO Last administered on 03/31/18at 19:49; Start 03/31/18 at 21:00 Risperidone (RisperDAL) 1.5 mg HS PO Last administered on 03/31/18at 19:49; Start 03/31/18 at 21:00 Losartan Potassium (Cozaar) 25 mg DAILY PO Last administered on 03/31/18at 08:26 ; Start 03/31/18 at 09:00 Lactobacillus Rhamnosus (Culturelle) 1 cap BID PO Last administered on at 19:48; Start 03/31/18 at 21:00 Fluoxetine HCl (PROzac) 20 mg DAILY PO ; Start 04/01/18 at 09:00 Active Scripts Active Sulfamethoxazole-Tmp Ds Tablet (Sulfamethoxazole/Trimethoprim) 1 Each Tablet 1 Tab PO BID 7 Days Reported Vitamin D3 (Cholecalciferol (Vitamin D3)) 1,000 Unit Tablet 1,000 Unit PO DAILY LAST DOSE GIVEN: DATE: TIME: NEXT DOSE DUE: DATE: TIME: Celecoxib 200 Mg Capsule 200 Mg PO DAILY LAST DOSE GIVEN: DATE: TIME: NEXT DOSE DUE: DATE: TIME: Oxybutynin Chloride Er (Oxybutynin Chloride) 15 Mg Tab.er.24 15 Mg PO DAILY LAST DOSE GIVEN: DATE: TIME: NEXT DOSE DUE: DATE: TIME: Fish Oil 1,000 Mg Capsule ([place]-3 Fatty Acids/Fish Oil) 1 Each Capsule 1,000 Mg PO DAILY LAST DOSE GIVEN: DATE: TIME: NEXT DOSE DUE: DATE: TIME: Pantoprazole Sodium 40 Mg Tablet.dr 40 Mg PO DAILY LAST DOSE GIVEN: DATE: TIME: NEXT DOSE DUE: DATE: TIME: Montelukast Sodium Tablet (Montelukast Sodium) 10 Mg Tablet 10 Mg PO HS LAST DOSE GIVEN: DATE: TIME: NEXT DOSE DUE: DATE: TIME: Tramadol Hcl (Tramadol HCl) 50 Mg Tablet 50 Mg PO PRN BID PRN LAST DOSE GIVEN: DATE: TIME: NEXT DOSE DUE: DATE: TIME: Cyclobenzaprine Hcl 10 Mg Tablet 10 Mg PO PRN BID PRN LAST DOSE GIVEN: DATE: 03/30/18 TIME: 0900 NEXT DOSE DUE: DATE:03/31/18 TIME:0900 Telmisartan 20 Mg Tablet 20 Mg PO DAILY LAST DOSE GIVEN: DATE: TIME: NEXT DOSE DUE: DATE: TIME: Mirtazapine 15 Mg Tablet 7.5 Mg PO HS LAST DOSE GIVEN: DATE: TIME: NEXT DOSE DUE: DATE: TIME: Citalopram Hbr (Citalopram Hydrobromide) 40 Mg Tablet 40 Mg PO DAILY LAST DOSE GIVEN: DATE: TIME: NEXT DOSE DUE: DATE: TIME: Risperidone 1 Mg Tablet 1.5 Mg PO HS LAST DOSE GIVEN: DATE: TIME: NEXT DOSE DUE: DATE: TIME: Atenolol 50 Mg Tablet 50 Mg PO DAILY LAST DOSE GIVEN: DATE: TIME: NEXT DOSE DUE: DATE: TIME: Prazosin Hcl 2 Mg Capsule 2 Mg PO HS LAST DOSE GIVEN: DATE: TIME: NEXT DOSE DUE: DATE: TIME: Clonazepam 1 Mg Tablet 1 Mg PO TID LAST DOSE GIVEN: DATE: TIME: NEXT DOSE DUE: DATE: TIME: I have reviewed the current psychotropics carefully including drug interactions. Risk benefit ratio favors no change other than as noted in my dictated progress note. Diagnosis: Problems: (1) Anxiety disorder (2) Bipolar affective, mixed, sev w/ psych (3) UTI (urinary tract infection) (4) Bipolar disorder, mixed (5) Impulse control disorder (6) Bipolar 1 disorder JULISSA ALLEN MD Mar 31, 2018 20:34
--- NOTE | 2018-03-31 22:58 | PN ---
DATE: 03/30/2018 PSYCHIATRIC PROGRESS NOTE This is a late entry for 03/30/2018, covers elements not covered in my initial note. SUBJECTIVE: I met with the patient the evening of 03/30/2018. Discussed with nursing staff and previously with PEPE Fisher who screened the patient for the [facility]. The patient has been reasonably oriented and able to understand about the need for inpatient psychiatric stabilization. She was seen at the [facility] initially referred for inpatient psychiatric stabilization, but then admitted to the medical/surgical floor for medical stabilization. Her is refusing to have her back home and stating he would divorce her if came back. ADDENDUM The patient remained somewhat hyperverbal, at times paranoid. I have carefully reviewed her psychotropics since she remains on Klonopin 1 mg 3 times a day, Celexa 40 mg a day, Remeron 7.5 mg at bedtime, Risperdal 1.5 mg at bedtime. Reportedly, these have been used for diagnosis of major depressive disorder with psychotic features, but further review of her history raises a question of bipolar disorder. She has failed outpatient psychiatric interventions on a fairly intense level at the [facility] resulting in this referral. No CV, , pulmonary, eye, ENT symptoms on review. MENTAL STATUS EXAM: Reasonably oriented. Speech is typical for her. Abstraction fair, computation impaired, language function intact. Mood and affect remain somewhat labile. Some paranoia is evident. No active suicidal ideation. LABORATORY DATA: Reviewed. IMPRESSION: Probable bipolar 1 disorder, mixed with psychotic features. History of major depressive disorder with psychotic features. PLAN: Continue current psychotropics, transferred to the [facility]. We will get records from the [facility] to establish the diagnosis and stabilize her prior to returning to outpatient psychiatric interventions. MAN Cassy ALLEN MD DR: MILLER/mira JOB#: [id number] / [id number]
[2018-04-01 02:23] LABS: HEMOGLOBIN A1C 5.6 % (4.8-5.6); THYROXINE 6.4 ug/dL (4.5-12.0)
[2018-04-01 06:38] VITALS: BP 95/59
[2018-04-01] MEDS: PANTOPRAZOLE 40 MG TABLET. PO SCH (08:05)
[2018-04-01] MEDS: SMZ/TMP 800/160MG TABLET. PO SCH ×2 (08:05→20:37)
[2018-04-01] MEDS: CELECOXIB 100 MG CAPSULE PO SCH (08:05)
[2018-04-01] MEDS: OMEGA-3 FATTY ACIDS/FISH OIL 1,000 MG CAPSULE. PO SCH (08:07)
[2018-04-01] MEDS: LACTOBACILLUS RHAMNOSUS GG 1 CAPSULE. PO SCH ×2 (08:07→20:37)
[2018-04-01] MEDS: OXYBUTYNIN CHLORIDE 5 MG TABLET PO SCH ×3 (08:07→20:37)
[2018-04-01] MEDS: LOSARTAN 25 MG TABLET. PO SCH (08:07)
[2018-04-01] MEDS: CHOLECALCIFEROL (VITAMIN D3) 1,000 UNIT TABLET PO SCH (08:09)
[2018-04-01] MEDS: ATENOLOL 50 MG TABLET PO SCH (08:10)
[2018-04-01] MEDS: clonazePAM 1 MG TABLET PO SCH ×3 (08:13→20:44)
[2018-04-01] MEDS: FLUoxetine HCL 20 MG CAPSULE PO SCH (08:13)
--- NOTE | 2018-04-01 15:55 | HP ---
ADMIT DATE: 03/31/2018 PSYCHIATRIC ADMISSION HISTORY/EVALUATION This late entry, date of service, 03/31/2018, covers elements not covered in my initial note. I met with the patient the evening of 03/31/2018. Reviewed her past psychiatric records and I had followed her in a consultation while she was on the medical/surgical floor being treated for UTI prior to this referral back to us for inpatient psychiatric stabilization. IDENTIFYING DATA: The patient is a 58-year-old female who was initially referred to the [facility] from the [facility] where she was seen outpatient on the day of referral. She was having increased mood lability, anxiety, irritability, paranoia and had failed outpatient psychiatric interventions. She presented to the Emergency Room and was found to have a UTI, admitted to [address] [place] [address] and this was medically treated, stabilized. Her psychiatric symptoms persisted as above. felt he could not take her home because of marked mood lability, psychosis, agitation. She was reasonably well oriented and consented for inpatient psychiatric stabilization. She had failed outpatient psychiatric treatment at the [facility] where she had also been seeing Dr. Stevenson, psychiatrist. CHIEF COMPLAINT: "They diagnosed me with depression. I have been on medications. I am okay." HISTORY OF PRESENT ILLNESS: Reportedly, the patient has a history of major depressive disorder with psychotic features. Prior to this admission, she has been on Celexa 40 mg a day, Klonopin 1 mg 3 times a day, Remeron 7.5 mg at bedtime, Risperdal 1.5 mg p.o. at bedtime. A very thorough and closed review of her history indicates a history of mood swings suggestive of bipolar disorder, but we are awaiting records from the [facility] for clarification. She has also been increasingly paranoid, anxious. No active suicidal or homicidal ideation. She has had some cognitive deficits as well, but remains reasonably oriented. PAST PSYCHIATRIC HISTORY: As above. MEDICAL HISTORY: Positive for status post UTI, hypertension, overactive bladder, chronic pain. 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 DIET: Regular, honey thickened. MEDICATIONS: She takes them whole, ambulates independently. ALLERGIES: LATEX, NIACIN, and NATURAL RUBBER. CODE STATUS: Full code. FAMILY HISTORY: Noncontributory. SOCIAL HISTORY: No alcohol, drug abuse, physical, sexual or elder abuse history is noted. Not known to be a perpetrator. REACTION TO HOSPITALIZATION: The patient accepting of it. ASSETS: Supportive . MENTAL STATUS EXAMINATION: The patient is seen individually evening of 03/31/2018. She readily recognized me from prior visits on . Speech has a typical adair and rhythm, but otherwise coherent. Abstraction fair, computation impaired, language function intact. Attention span short. She is reasonably oriented. Does have some short-term memory deficits. No clear suicidal or homicidal ideation. IMPRESSION: Probable bipolar 1 disorder mixed with psychotic features; history of major depressive disorder with psychotic features; anxiety disorder, unspecified; impulse control disorder, unspecified; cognitive disorder, unspecified. Rest as above. PLAN: Admit to Geropsychiatry Unit at [facility]. I will see the patient daily individually from a psychiatric standpoint and medical followup with Dr. Katz/Dr. Torres. Change the Celexa to Prozac 20 mg a day. Consider tapering the Klonopin. Maintain Remeron and Risperdal for now. Get outpatient records from the [facility] for clarification of diagnosis. ESTIMATED LENGTH OF STAY: 7-10 days. DISCHARGE DISPOSITION: Back home with outpatient treatment at the [facility]. MAN Cassy ALLEN MD DR: MILLER/mira JOB#: [id number] / [id number]
[2018-04-01 18:05] VITALS: BP 128/52
[2018-04-01] MEDS: MIRTAZAPINE 7.5 MG TABLET. PO SCH (20:36)
[2018-04-01] MEDS: PRAZOSIN 1 MG CAPSULE. PO SCH (20:37)
[2018-04-01] MEDS: MONTELUKAST 10 MG TABLET. PO SCH (20:37)
[2018-04-01] MEDS: risperiDONE 0.5 MG TABLET. PO SCH (20:37)
[2018-04-01] MEDS: DIVALPROEX 125 MG CAP.SPRINK PO SCH (20:45)
--- NOTE | 2018-04-01 21:05 | PDOC ---
Exam Note: Bharathi Note: Please also refer to the separate dictated note~for this date of service dictated separately.~Patient seen individually. Discussed the patient with Nursing staff reviewed the chart.~Reviewed interim history and current functioning. Reviewed vital signs,~Labs/ Radiology~and current medications noted below. Continue current treatment with the changes noted in the dictated addendum note Assessment: Vital Signs: Vital Signs Date Time Temp Pulse Resp B/P (MAP) Pulse Ox O2 Delivery O2 Flow Rate FiO2 04/01/18 20:37 75 128/52 04/01/18 18:05 97.0 18 94 03/31/18 06:20 Room Air I&O Intake and Output 04/01/18 06:59 Intake Total 960 ml Balance 960 ml Intake Oral 960 ml # Voids 1 Labs: Laboratory Tests Test 04/01/18 19:39 Glucose (Fingerstick) 119 mg/dL (70-99) H Current Medications: Meds: Current Medications Acetaminophen (Tylenol) 650 mg PRN Q6HRS PRN PO PAIN / TEMP; Start 03/30/18 at 23:15 Multi-Ingredient Ointment (Analgesic [place]) 1 maikel PRN QID PRN TP MUSCLE PAIN; Start 03/30/18 at 23:15 Al Hydroxide/Mg Hydroxide (Mylanta Plus Xs) 15 ml PRN AFTMEALHC PRN PO DYSPEPSIA; Start 03/30/18 at 23:15 Magnesium Hydroxide (Milk Of Magnesia) 2,400 mg PRN QHS PRN PO CONSTIPATION; Start 03/30/18 at 23:15 Vitamin D (Vitamin D3) 1,000 unit DAILY PO Last administered on 04/01/18at 08:09 ; Start 03/31/18 at 09:00 Cyclobenzaprine HCl (Flexeril) 10 mg PRN BID PRN PO MUSCLE PAIN; Start at 23:30 Fish Oil (Fish Oil) 1,000 mg DAILY PO Last administered on 04/01/18at 08:07; Start 03/31/18 at 09:00 Trimethoprim/ Sulfamethoxazole (Bactrim Ds) 1 tab BID PO Last administered on at 20:37; Start 03/31/18 at 09:00 Tramadol HCl (Ultram) 50 mg PRN BID PRN PO PAIN; Start 03/30/18 at 23:30 Atenolol (Tenormin) 50 mg DAILY PO Last administered on 04/01/18at 08:10; Start 03/31/18 at 09:00 Celecoxib (CeleBREX) 200 mg DAILY PO Last administered on 04/01/18at 08:05; Start 03/31/18 at 09:00 Citalopram Hydrobromide (CeleXA) 40 mg DAILY PO Last administered on 03/31/18at 08:26; Start 03/31/18 at 09:00; Stop 03/31/18 at 19:31; Status DC Clonazepam (KlonoPIN) 1 mg TID PO Last administered on 04/01/18at 20:44; Start 03/31/18 at 09:00 Mirtazapine (Remeron) 7.5 mg HS PO Last administered on 04/01/18at 20:36; Start 03/31/18 at 21:00 Montelukast Sodium (Singulair) 10 mg HS PO Last administered on 04/01/18at 20:37 ; Start 03/31/18 at 21:00 Oxybutynin Chloride (Ditropan) 5 mg TID PO Last administered on 04/01/18at 20:37 ; Start 03/31/18 at 09:00 Pantoprazole Sodium (Protonix) 40 mg DAILYAC PO Last administered on 04/01/18at 08:05; Start 03/31/18 at 07:30 Prazosin HCl (Minipress) 2 mg HS PO Last administered on 04/01/18at 20:37; Start 03/31/18 at 21:00 Risperidone (RisperDAL) 1.5 mg HS PO Last administered on 04/01/18at 20:37; Start 03/31/18 at 21:00 Losartan Potassium (Cozaar) 25 mg DAILY PO Last administered on 04/01/18at 08:07 ; Start 03/31/18 at 09:00 Lactobacillus Rhamnosus (Culturelle) 1 cap BID PO Last administered on at 20:37; Start 03/31/18 at 21:00 Fluoxetine HCl (PROzac) 20 mg DAILY PO Last administered on 04/01/18at 08:13; Start 04/01/18 at 09:00 Divalproex Sodium (Depakote Sprinkles) 250 mg BID PO Last administered on at 20:45; Start 04/01/18 at 21:00 Active Scripts Active Sulfamethoxazole-Tmp Ds Tablet (Sulfamethoxazole/Trimethoprim) 1 Each Tablet 1 Tab PO BID 7 Days Reported Vitamin D3 (Cholecalciferol (Vitamin D3)) 1,000 Unit Tablet 1,000 Unit PO DAILY LAST DOSE GIVEN: DATE: TIME: NEXT DOSE DUE: DATE: TIME: Celecoxib 200 Mg Capsule 200 Mg PO DAILY LAST DOSE GIVEN: DATE: TIME: NEXT DOSE DUE: DATE: TIME: Oxybutynin Chloride Er (Oxybutynin Chloride) 15 Mg Tab.er.24 15 Mg PO DAILY LAST DOSE GIVEN: DATE: TIME: NEXT DOSE DUE: DATE: TIME: Fish Oil 1,000 Mg Capsule ([place]-3 Fatty Acids/Fish Oil) 1 Each Capsule 1,000 Mg PO DAILY LAST DOSE GIVEN: DATE: TIME: NEXT DOSE DUE: DATE: TIME: Pantoprazole Sodium 40 Mg Tablet.dr 40 Mg PO DAILY LAST DOSE GIVEN: DATE: TIME: NEXT DOSE DUE: DATE: TIME: Montelukast Sodium Tablet (Montelukast Sodium) 10 Mg Tablet 10 Mg PO HS LAST DOSE GIVEN: DATE: TIME: NEXT DOSE DUE: DATE: TIME: Tramadol Hcl (Tramadol HCl) 50 Mg Tablet 50 Mg PO PRN BID PRN LAST DOSE GIVEN: DATE: TIME: NEXT DOSE DUE: DATE: TIME: Cyclobenzaprine Hcl 10 Mg Tablet 10 Mg PO PRN BID PRN LAST DOSE GIVEN: DATE: 03/30/18 TIME: 0900 NEXT DOSE DUE: DATE:03/31/18 TIME:0900 Telmisartan 20 Mg Tablet 20 Mg PO DAILY LAST DOSE GIVEN: DATE: TIME: NEXT DOSE DUE: DATE: TIME: Mirtazapine 15 Mg Tablet 7.5 Mg PO HS LAST DOSE GIVEN: DATE: TIME: NEXT DOSE DUE: DATE: TIME: Citalopram Hbr (Citalopram Hydrobromide) 40 Mg Tablet 40 Mg PO DAILY LAST DOSE GIVEN: DATE: TIME: NEXT DOSE DUE: DATE: TIME: Risperidone 1 Mg Tablet 1.5 Mg PO HS LAST DOSE GIVEN: DATE: TIME: NEXT DOSE DUE: DATE: TIME: Atenolol 50 Mg Tablet 50 Mg PO DAILY LAST DOSE GIVEN: DATE: TIME: NEXT DOSE DUE: DATE: TIME: Prazosin Hcl 2 Mg Capsule 2 Mg PO HS LAST DOSE GIVEN: DATE: TIME: NEXT DOSE DUE: DATE: TIME: Clonazepam 1 Mg Tablet 1 Mg PO TID LAST DOSE GIVEN: DATE: TIME: NEXT DOSE DUE: DATE: TIME: I have reviewed the current psychotropics carefully including drug interactions. Risk benefit ratio favors no change other than as noted in my dictated progress note. Diagnosis: Problems: (1) Anxiety disorder (2) Bipolar affective, mixed, sev w/ psych (3) UTI (urinary tract infection) (4) Bipolar disorder, mixed (5) Impulse control disorder (6) Bipolar 1 disorder JULISSA ALLEN MD Apr 01, 2018 21:05
[2018-04-02 06:03] VITALS: BP 104/53
[2018-04-02] MEDS: CELECOXIB 100 MG CAPSULE PO SCH (08:05)
[2018-04-02] MEDS: FLUoxetine HCL 20 MG CAPSULE PO SCH (08:05)
[2018-04-02] MEDS: CHOLECALCIFEROL (VITAMIN D3) 1,000 UNIT TABLET PO SCH (08:05)
[2018-04-02] MEDS: OXYBUTYNIN CHLORIDE 5 MG TABLET PO SCH ×3 (08:05→20:39)
[2018-04-02] MEDS: OMEGA-3 FATTY ACIDS/FISH OIL 1,000 MG CAPSULE. PO SCH (08:05)
[2018-04-02] MEDS: DIVALPROEX 125 MG CAP.SPRINK PO SCH ×2 (08:06→20:39)
[2018-04-02] MEDS: clonazePAM 1 MG TABLET PO SCH ×2 (08:07→13:02)
[2018-04-02] MEDS: SMZ/TMP 800/160MG TABLET. PO SCH ×2 (08:07→20:39)
[2018-04-02] MEDS: LOSARTAN 25 MG TABLET. PO SCH (08:07)
[2018-04-02] MEDS: LACTOBACILLUS RHAMNOSUS GG 1 CAPSULE. PO SCH ×2 (08:08→20:40)
[2018-04-02] MEDS: PANTOPRAZOLE 40 MG TABLET. PO SCH (08:08)
[2018-04-02] MEDS: ATENOLOL 50 MG TABLET PO SCH (08:08)
[2018-04-02 15:58] VITALS: BP 113/72
[2018-04-02] MEDS ORDERED: clonazePAM 1 MG TABLET PO PRN (18:45)
[2018-04-02] MEDS ORDERED: clonazePAM 0.5 MG TABLET PO PRN (18:45)
[2018-04-02] MEDS: PRAZOSIN 1 MG CAPSULE. PO SCH (20:39)
[2018-04-02] MEDS: MONTELUKAST 10 MG TABLET. PO SCH (20:39)
[2018-04-02] MEDS: MIRTAZAPINE 7.5 MG TABLET. PO SCH (20:39)
[2018-04-02] MEDS: risperiDONE 0.5 MG TABLET. PO SCH (20:39)
--- NOTE | 2018-04-02 20:57 | PDOC ---
Exam Note: Bharathi Note: Please also refer to the separate dictated note~for this date of service dictated separately.~Patient seen individually. Discussed the patient with Nursing staff reviewed the chart.~Reviewed interim history and current functioning. Reviewed vital signs,~Labs/ Radiology~and current medications noted below. Continue current treatment with the changes noted in the dictated addendum note Assessment: Vital Signs: Vital Signs Date Time Temp Pulse Resp B/P (MAP) Pulse Ox O2 Delivery O2 Flow Rate FiO2 04/02/18 20:39 67 113/72 04/02/18 15:58 98.3 16 93 03/31/18 06:20 Room Air I&O Intake and Output 04/02/18 06:59 Intake Total 1200 ml Balance 1200 ml Intake Oral 1200 ml # Voids 1 Current Medications: Meds: Current Medications Acetaminophen (Tylenol) 650 mg PRN Q6HRS PRN PO PAIN / TEMP; Start 03/30/18 at 23:15 Multi-Ingredient Ointment (Analgesic [place]) 1 maikel PRN QID PRN TP MUSCLE PAIN; Start 03/30/18 at 23:15 Al Hydroxide/Mg Hydroxide (Mylanta Plus Xs) 15 ml PRN AFTMEALHC PRN PO DYSPEPSIA; Start 03/30/18 at 23:15 Magnesium Hydroxide (Milk Of Magnesia) 2,400 mg PRN QHS PRN PO CONSTIPATION; Start 03/30/18 at 23:15 Vitamin D (Vitamin D3) 1,000 unit DAILY PO Last administered on 04/02/18at 08:05 ; Start 03/31/18 at 09:00 Cyclobenzaprine HCl (Flexeril) 10 mg PRN BID PRN PO MUSCLE PAIN; Start at 23:30 Fish Oil (Fish Oil) 1,000 mg DAILY PO Last administered on 04/02/18at 08:05; Start 03/31/18 at 09:00 Trimethoprim/ Sulfamethoxazole (Bactrim Ds) 1 tab BID PO Last administered on at 20:39; Start 03/31/18 at 09:00 Tramadol HCl (Ultram) 50 mg PRN BID PRN PO PAIN; Start 03/30/18 at 23:30 Atenolol (Tenormin) 50 mg DAILY PO Last administered on 04/02/18at 08:08; Start 03/31/18 at 09:00 Celecoxib (CeleBREX) 200 mg DAILY PO Last administered on 04/02/18 08:05; Start 03/31/18 at 09:00 Citalopram Hydrobromide (CeleXA) 40 mg DAILY PO Last administered on 03/31/18at 08:26; Start 03/31/18 at 09:00; Stop 03/31/18 at 19:31; Status DC Clonazepam (KlonoPIN) 1 mg TID PO Last administered on 04/02/18at 13:02; Start 03/31/18 at 09:00; Stop 04/02/18 at 18:45; Status DC Mirtazapine (Remeron) 7.5 mg HS PO Last administered on 04/02/18 20:39; Start 03/31/18 at 21:00 Montelukast Sodium (Singulair) 10 mg HS PO Last administered on 04/02/18 20:39 ; Start 03/31/18 at 21:00 Oxybutynin Chloride (Ditropan) 5 mg TID PO Last administered on 04/02/18 20:39 ; Start 03/31/18 at 09:00 Pantoprazole Sodium (Protonix) 40 mg DAILYAC PO Last administered on 04/02/18 08:08; Start 03/31/18 at 07:30 Prazosin HCl (Minipress) 2 mg HS PO Last administered on 04/02/18 20:39; Start 03/31/18 at 21:00 Risperidone (RisperDAL) 1.5 mg HS PO Last administered on 04/02/18 20:39; Start 03/31/18 at 21:00 Losartan Potassium (Cozaar) 25 mg DAILY PO Last administered on 04/02/18 08:07 ; Start 03/31/18 at 09:00 Lactobacillus Rhamnosus (Culturelle) 1 cap BID PO Last administered on 20:40; Start 03/31/18 at 21:00 Fluoxetine HCl (PROzac) 20 mg DAILY PO Last administered on 04/02/18 08:05; Start 04/01/18 at 09:00 Divalproex Sodium (Depakote Sprinkles) 250 mg BID PO Last administered on 20:39; Start 04/01/18 at 21:00 Clonazepam (KlonoPIN) 1 mg BID PRN PO ANXIETY / AGITATION; Start 04/02/18 at 18 :45; Stop 04/02/18 at 18:45; Status DC Clonazepam (KlonoPIN) 0.5 mg PRN BID PRN PO ANXIETY / AGITATION; Start at 18:45 Active Scripts Active Sulfamethoxazole-Tmp Ds Tablet (Sulfamethoxazole/Trimethoprim) 1 Each Tablet 1 Tab PO BID 7 Days Reported Vitamin D3 (Cholecalciferol (Vitamin D3)) 1,000 Unit Tablet 1,000 Unit PO DAILY LAST DOSE GIVEN: DATE: TIME: NEXT DOSE DUE: DATE: TIME: Celecoxib 200 Mg Capsule 200 Mg PO DAILY LAST DOSE GIVEN: DATE: TIME: NEXT DOSE DUE: DATE: TIME: Oxybutynin Chloride Er (Oxybutynin Chloride) 15 Mg Tab.er.24 15 Mg PO DAILY LAST DOSE GIVEN: DATE: TIME: NEXT DOSE DUE: DATE: TIME: Fish Oil 1,000 Mg Capsule ([place]-3 Fatty Acids/Fish Oil) 1 Each Capsule 1,000 Mg PO DAILY LAST DOSE GIVEN: DATE: TIME: NEXT DOSE DUE: DATE: TIME: Pantoprazole Sodium 40 Mg Tablet.dr 40 Mg PO DAILY LAST DOSE GIVEN: DATE: TIME: NEXT DOSE DUE: DATE: TIME: Montelukast Sodium Tablet (Montelukast Sodium) 10 Mg Tablet 10 Mg PO HS LAST DOSE GIVEN: DATE: TIME: NEXT DOSE DUE: DATE: TIME: Tramadol Hcl (Tramadol HCl) 50 Mg Tablet 50 Mg PO PRN BID PRN LAST DOSE GIVEN: DATE: TIME: NEXT DOSE DUE: DATE: TIME: Cyclobenzaprine Hcl 10 Mg Tablet 10 Mg PO PRN BID PRN LAST DOSE GIVEN: DATE: 03/30/18 TIME: 0900 NEXT DOSE DUE: DATE:03/31/18 TIME:09 Telmisartan 20 Mg Tablet 20 Mg PO DAILY LAST DOSE GIVEN: DATE: TIME: NEXT DOSE DUE: DATE: TIME: Mirtazapine 15 Mg Tablet 7.5 Mg PO HS LAST DOSE GIVEN: DATE: TIME: NEXT DOSE DUE: DATE: TIME: Citalopram Hbr (Citalopram Hydrobromide) 40 Mg Tablet 40 Mg PO DAILY LAST DOSE GIVEN: DATE: TIME: NEXT DOSE DUE: DATE: TIME: Risperidone 1 Mg Tablet 1.5 Mg PO HS LAST DOSE GIVEN: DATE: TIME: NEXT DOSE DUE: DATE: TIME: Atenolol 50 Mg Tablet 50 Mg PO DAILY LAST DOSE GIVEN: DATE: TIME: NEXT DOSE DUE: DATE: TIME: Prazosin Hcl 2 Mg Capsule 2 Mg PO HS LAST DOSE GIVEN: DATE: TIME: NEXT DOSE DUE: DATE: TIME: Clonazepam 1 Mg Tablet 1 Mg PO TID LAST DOSE GIVEN: DATE: TIME: NEXT DOSE DUE: DATE: TIME: I have reviewed the current psychotropics carefully including drug interactions. Risk benefit ratio favors no change other than as noted in my dictated progress note. Diagnosis: Problems: (1) Anxiety disorder (2) Bipolar affective, mixed, sev w/ psych (3) UTI (urinary tract infection) (4) Bipolar disorder, mixed (5) Impulse control disorder (6) Bipolar 1 disorder JULISSA ALLEN MD Apr 02, 2018 20:57
--- NOTE | 2018-04-02 22:28 | PN ---
DATE: 04/01/2018 This is a late entry for 04/01/2018 covers elements not covered in my initial note. SUBJECTIVE: I met with the patient in the evening. Per nursing report, the patient has been tearful at times, anxious with some pressure of speech. She slept 5-1/4 hours. We are awaiting records from the [facility]. REVIEW OF SYSTEMS: No CV, , pulmonary, eye, ENT system symptoms on review. MENTAL STATUS EXAM: Oriented to herself and situation. Speech coherent, rapid at times. Abstraction fair, computation impaired, language function intact, attention span short. Mood and affect remain somewhat labile. LABORATORY DATA: Reviewed. IMPRESSION: Probable bipolar 1 disorder, mixed with psychotic features. She does have UTI, anxiety disorder, unspecified; history of major depressive disorder with psychotic features. PLAN: Await records from the [facility]. Start Depakote 250 mg twice a day. Check CBC, CMP, valproic acid level in 3 days. Continue Risperdal, Prozac, Klonopin and Remeron for now. MAN Cassy ALLEN MD DR: MILLER/mira JOB#: [id number] / [id number]
[2018-04-03 05:46] VITALS: BP 94/65
[2018-04-03] MEDS: PANTOPRAZOLE 40 MG TABLET. PO SCH (08:57)
[2018-04-03] MEDS: SMZ/TMP 800/160MG TABLET. PO SCH ×2 (08:58→20:16)
[2018-04-03] MEDS: CELECOXIB 100 MG CAPSULE PO SCH (08:58)
[2018-04-03] MEDS: LACTOBACILLUS RHAMNOSUS GG 1 CAPSULE. PO SCH ×2 (08:59→20:16)
[2018-04-03] MEDS: LOSARTAN 25 MG TABLET. PO SCH ×2 (08:59→09:00)
[2018-04-03] MEDS: ATENOLOL 50 MG TABLET PO SCH (09:00)
[2018-04-03] MEDS: DIVALPROEX 125 MG CAP.SPRINK PO SCH ×2 (09:00→20:17)
[2018-04-03] MEDS: FLUoxetine HCL 20 MG CAPSULE PO SCH (09:01)
[2018-04-03] MEDS: OMEGA-3 FATTY ACIDS/FISH OIL 1,000 MG CAPSULE. PO SCH (09:01)
[2018-04-03] MEDS: OXYBUTYNIN CHLORIDE 5 MG TABLET PO SCH ×3 (09:01→20:16)
[2018-04-03] MEDS: risperiDONE 0.5 MG TABLET. PO SCH (09:01)
[2018-04-03] MEDS: CHOLECALCIFEROL (VITAMIN D3) 1,000 UNIT TABLET PO SCH (09:01)
[2018-04-03 16:23] VITALS: BP 123/72
[2018-04-03] MEDS: MONTELUKAST 10 MG TABLET. PO SCH (20:15)
[2018-04-03] MEDS: MIRTAZAPINE 7.5 MG TABLET. PO SCH (20:16)
[2018-04-03] MEDS: PRAZOSIN 1 MG CAPSULE. PO SCH (20:18)
--- NOTE | 2018-04-03 20:48 | PDOC ---
Exam Note: Bharathi Note: Please also refer to the separate dictated note~for this date of service dictated separately.~Patient seen individually. Discussed the patient with Nursing staff reviewed the chart.~Reviewed interim history and current functioning. Reviewed vital signs,~Labs/ Radiology~and current medications noted below. Continue current treatment with the changes noted in the dictated addendum note Assessment: Vital Signs: Vital Signs Date Time Temp Pulse Resp B/P (MAP) Pulse Ox O2 Delivery O2 Flow Rate FiO2 04/03/18 20:18 73 123/72 04/03/18 16:23 98.5 17 95 Room Air I&O Intake and Output 04/03/18 06:59 Intake Total 1320 ml Balance 1320 ml Intake Oral 1320 ml # Voids 1 Current Medications: Meds: Current Medications Acetaminophen (Tylenol) 650 mg PRN Q6HRS PRN PO PAIN / TEMP; Start 03/30/18 at 23:15 Multi-Ingredient Ointment (Analgesic [place]) 1 maikel PRN QID PRN TP MUSCLE PAIN; Start 03/30/18 at 23:15 Al Hydroxide/Mg Hydroxide (Mylanta Plus Xs) 15 ml PRN AFTMEALHC PRN PO DYSPEPSIA; Start 03/30/18 at 23:15 Magnesium Hydroxide (Milk Of Magnesia) 2,400 mg PRN QHS PRN PO CONSTIPATION; Start 03/30/18 at 23:15 Vitamin D (Vitamin D3) 1,000 unit DAILY PO Last administered on 04/03/18at 09:01 ; Start 03/31/18 at 09:00 Cyclobenzaprine HCl (Flexeril) 10 mg PRN BID PRN PO MUSCLE PAIN; Start at 23:30 Fish Oil (Fish Oil) 1,000 mg DAILY PO Last administered on 04/03/18at 09:01; Start 03/31/18 at 09:00 Trimethoprim/ Sulfamethoxazole (Bactrim Ds) 1 tab BID PO Last administered on at 20:16; Start 03/31/18 at 09:00 Tramadol HCl (Ultram) 50 mg PRN BID PRN PO PAIN; Start 03/30/18 at 23:30 Atenolol (Tenormin) 50 mg DAILY PO Last administered on 04/02/18at 08:08; Start 03/31/18 at 09:00 Celecoxib (CeleBREX) 200 mg DAILY PO Last administered on 04/03/18 08:58; Start 03/31/18 at 09:00 Citalopram Hydrobromide (CeleXA) 40 mg DAILY PO Last administered on 03/31/18 08:26; Start 03/31/18 at 09:00; Stop 03/31/18 at 19:31; Status DC Clonazepam (KlonoPIN) 1 mg TID PO Last administered on 04/02/18at 13:02; Start 03/31/18 at 09:00; Stop 04/02/18 at 18:45; Status DC Mirtazapine (Remeron) 7.5 mg HS PO Last administered on 04/03/18 20:16; Start 03/31/18 at 21:00 Montelukast Sodium (Singulair) 10 mg HS PO Last administered on 04/03/18at 20:15 ; Start 03/31/18 at 21:00 Oxybutynin Chloride (Ditropan) 5 mg TID PO Last administered on 04/03/18 20:16 ; Start 03/31/18 at 09:00 Pantoprazole Sodium (Protonix) 40 mg DAILYAC PO Last administered on 04/03/18 08:57; Start 03/31/18 at 07:30 Prazosin HCl (Minipress) 2 mg HS PO Last administered on 04/03/18 20:18; Start 03/31/18 at 21:00 Risperidone (RisperDAL) 1.5 mg HS PO Last administered on 04/02/18at 20:39; Start 03/31/18 at 21:00 Losartan Potassium (Cozaar) 25 mg DAILY PO Last administered on 04/02/18at 08:07 ; Start 03/31/18 at 09:00 Lactobacillus Rhamnosus (Culturelle) 1 cap BID PO Last administered on 20:16; Start 03/31/18 at 21:00 Fluoxetine HCl (PROzac) 20 mg DAILY PO Last administered on 04/03/18at 09:01; Start 04/01/18 at 09:00 Divalproex Sodium (Depakote Sprinkles) 250 mg BID PO Last administered on at 20:17; Start 04/01/18 at 21:00 Clonazepam (KlonoPIN) 1 mg BID PRN PO ANXIETY / AGITATION; Start 04/02/18 at 18 :45; Stop 04/02/18 at 18:45; Status DC Clonazepam (KlonoPIN) 0.5 mg PRN BID PRN PO ANXIETY / AGITATION; Start at 18:45 Active Scripts Active Sulfamethoxazole-Tmp Ds Tablet (Sulfamethoxazole/Trimethoprim) 1 Each Tablet 1 Tab PO BID 7 Days Reported Vitamin D3 (Cholecalciferol (Vitamin D3)) 1,000 Unit Tablet 1,000 Unit PO DAILY LAST DOSE GIVEN: DATE: TIME: NEXT DOSE DUE: DATE: TIME: Celecoxib 200 Mg Capsule 200 Mg PO DAILY LAST DOSE GIVEN: DATE: TIME: NEXT DOSE DUE: DATE: TIME: Oxybutynin Chloride Er (Oxybutynin Chloride) 15 Mg Tab.er.24 15 Mg PO DAILY LAST DOSE GIVEN: DATE: TIME: NEXT DOSE DUE: DATE: TIME: Fish Oil 1,000 Mg Capsule ([place]-3 Fatty Acids/Fish Oil) 1 Each Capsule 1,000 Mg PO DAILY LAST DOSE GIVEN: DATE: TIME: NEXT DOSE DUE: DATE: TIME: Pantoprazole Sodium 40 Mg Tablet.dr 40 Mg PO DAILY LAST DOSE GIVEN: DATE: TIME: NEXT DOSE DUE: DATE: TIME: Montelukast Sodium Tablet (Montelukast Sodium) 10 Mg Tablet 10 Mg PO HS LAST DOSE GIVEN: DATE: TIME: NEXT DOSE DUE: DATE: TIME: Tramadol Hcl (Tramadol HCl) 50 Mg Tablet 50 Mg PO PRN BID PRN LAST DOSE GIVEN: DATE: TIME: NEXT DOSE DUE: DATE: TIME: Cyclobenzaprine Hcl 10 Mg Tablet 10 Mg PO PRN BID PRN LAST DOSE GIVEN: DATE: 03/30/18 TIME: 0900 NEXT DOSE DUE: DATE:03/31/18 TIME:0900 Telmisartan 20 Mg Tablet 20 Mg PO DAILY LAST DOSE GIVEN: DATE: TIME: NEXT DOSE DUE: DATE: TIME: Mirtazapine 15 Mg Tablet 7.5 Mg PO HS LAST DOSE GIVEN: DATE: TIME: NEXT DOSE DUE: DATE: TIME: Citalopram Hbr (Citalopram Hydrobromide) 40 Mg Tablet 40 Mg PO DAILY LAST DOSE GIVEN: DATE: TIME: NEXT DOSE DUE: DATE: TIME: Risperidone 1 Mg Tablet 1.5 Mg PO HS LAST DOSE GIVEN: DATE: TIME: NEXT DOSE DUE: DATE: TIME: Atenolol 50 Mg Tablet 50 Mg PO DAILY LAST DOSE GIVEN: DATE: TIME: NEXT DOSE DUE: DATE: TIME: Prazosin Hcl 2 Mg Capsule 2 Mg PO HS LAST DOSE GIVEN: DATE: TIME: NEXT DOSE DUE: DATE: TIME: Clonazepam 1 Mg Tablet 1 Mg PO TID LAST DOSE GIVEN: DATE: TIME: NEXT DOSE DUE: DATE: TIME: I have reviewed the current psychotropics carefully including drug interactions. Risk benefit ratio favors no change other than as noted in my dictated progress note. Diagnosis: Problems: (1) Anxiety disorder (2) Bipolar affective, mixed, sev w/ psych (3) UTI (urinary tract infection) (4) Bipolar disorder, mixed (5) Impulse control disorder (6) Bipolar 1 disorder JULISSA ALLEN MD Apr 03, 2018 20:48
[2018-04-04 06:31] VITALS: BP 92/65
[2018-04-04 07:06] LABS: BASO # 0.1 x10^3/uL (0.0-0.2); BASO % 1 % (0-3); EOS # 0.3 x10^3/uL (0.0-0.7); EOS % 3 % (0-3); HEMATOCRIT 33.3 % (36.0-47.0); LYMPH # 1.5 x10^3/uL (1.0-4.8); LYMPH % 16 % (24-48); MEAN CORPUSCULAR HEMOGLOBIN 27 pg (25-35); MEAN CORPUSCULAR HGB CONC 33 g/dL (31-37); MEAN CORPUSCULAR VOLUME 82 fL (79-100); MONO # 0.6 x10^3/uL (0.0-1.1); MONO % 7 % (0-9); NEUT # 7.3 x10^3uL (1.8-7.7); NEUT % 74 % (31-73); PLATELET COUNT 270 x10^3/uL (140-400); RED BLOOD COUNT 4.08 x10^6/uL (3.50-5.40); RED CELL DISTRIBUTION WIDTH 17.1 % (11.5-14.5); WHITE BLOOD COUNT 9.9 x10^3/uL (4.0-11.0)
[2018-04-04 07:37] LABS: ALBUMIN/GLOBULIN RATIO 0.7 (1.0-1.7); ALK PHOS 103 U/L (46-116); ALT (SGPT) 19 U/L (14-59); ANION GAP 9 (6-14); AST (SGOT) 16 U/L (15-37); BLOOD UREA NITROGEN 13 mg/dL (7-20); BUN/CREATININE RATIO 10 (6-20); CALCIUM 8.9 mg/dL (8.5-10.1); CARBON DIOXIDE 24 mmol/L (21-32); CHLORIDE 102 mmol/L (98-107); CREATININE 1.3 mg/dL (0.6-1.0); GFR 42.1; GLUCOSE 85 mg/dL (70-99); POTASSIUM 4.4 mmol/L (3.5-5.1); SODIUM 135 mmol/L (136-145); TOTAL BILIRUBIN 0.3 mg/dL (0.2-1.0); TOTAL PROTEIN 7.2 g/dL (6.4-8.2); VAL ACID 47 mcg/mL (50-100)
[2018-04-04] MEDS: OMEGA-3 FATTY ACIDS/FISH OIL 1,000 MG CAPSULE. PO SCH (07:45)
[2018-04-04] MEDS: CHOLECALCIFEROL (VITAMIN D3) 1,000 UNIT TABLET PO SCH (07:45)
[2018-04-04] MEDS: PANTOPRAZOLE 40 MG TABLET. PO SCH (07:45)
[2018-04-04] MEDS: DIVALPROEX 125 MG CAP.SPRINK PO SCH ×2 (07:45→19:57)
[2018-04-04] MEDS: OXYBUTYNIN CHLORIDE 5 MG TABLET PO SCH ×3 (07:45→19:57)
[2018-04-04] MEDS: FLUoxetine HCL 20 MG CAPSULE PO SCH (07:45)
[2018-04-04] MEDS: CELECOXIB 100 MG CAPSULE PO SCH (07:45)
[2018-04-04] MEDS: SMZ/TMP 800/160MG TABLET. PO SCH ×2 (07:46→19:58)
[2018-04-04] MEDS: LACTOBACILLUS RHAMNOSUS GG 1 CAPSULE. PO SCH ×2 (07:46→19:57)
[2018-04-04] MEDS: ATENOLOL 50 MG TABLET PO SCH (08:56)
[2018-04-04] MEDS: LOSARTAN 25 MG TABLET. PO SCH (08:56)
[2018-04-04 16:00] VITALS: BP 121/63
[2018-04-04] MEDS: PRAZOSIN 1 MG CAPSULE. PO SCH (19:55)
[2018-04-04] MEDS: risperiDONE 0.5 MG TABLET. PO SCH (19:56)
[2018-04-04] MEDS: MONTELUKAST 10 MG TABLET. PO SCH (19:58)
[2018-04-04] MEDS: MIRTAZAPINE 7.5 MG TABLET. PO SCH (19:58)
--- NOTE | 2018-04-04 20:54 | PDOC ---
Exam Note: Bahrathi Note: Please also refer to the separate dictated note~for this date of service dictated separately.~Patient seen individually. Discussed the patient with Nursing staff reviewed the chart.~Reviewed interim history and current functioning. Reviewed vital signs,~Labs/ Radiology~and current medications noted below. Continue current treatment with the changes noted in the dictated addendum note Assessment: Vital Signs: Vital Signs Date Time Temp Pulse Resp B/P (MAP) Pulse Ox O2 Delivery O2 Flow Rate FiO2 04/04/18 19:55 80 121/63 04/04/18 16:00 97.9 18 94 04/03/18 16:23 Room Air I&O Intake and Output 04/04/18 07:00 Intake Total 1500 ml Balance 1500 ml Intake Oral 1500 ml # Voids 1 Labs: Laboratory Tests Test 04/04/18 06:50 White Blood Count 9.9 x10^3/uL (4.0-11.0) Red Blood Count 4.08 x10^6/uL (3.50-5.40) Hemoglobin 11.0 g/dL (12.0-15.5) L Hematocrit 33.3 % (36.0-47.0) L Mean Corpuscular Volume 82 fL (79-100) Mean Corpuscular Hemoglobin 27 pg (25-35) Mean Corpuscular Hemoglobin Concent 33 g/dL (31-37) Red Cell Distribution Width 17.1 % (11.5-14.5) H Platelet Count 270 x10^3/uL (140-400) Neutrophils (%) (Auto) 74 % (31-73) H Lymphocytes (%) (Auto) 16 % (24-48) L Monocytes (%) (Auto) 7 % (0-9) Eosinophils (%) (Auto) 3 % (0-3) Basophils (%) (Auto) 1 % (0-3) Neutrophils # (Auto) 7.3 x10^3uL (1.8-7.7) Lymphocytes # (Auto) 1.5 x10^3/uL (1.0-4.8) Monocytes # (Auto) 0.6 x10^3/uL (0.0-1.1) Eosinophils # (Auto) 0.3 x10^3/uL (0.0-0.7) Basophils # (Auto) 0.1 x10^3/uL (0.0-0.2) Sodium Level 135 mmol/L (136-145) L Potassium Level 4.4 mmol/L (3.5-5.1) Chloride Level 102 mmol/L (98-107) Carbon Dioxide Level 24 mmol/L (21-32) Anion Gap 9 (6-14) Blood Urea Nitrogen 13 mg/dL (7-20) Creatinine 1.3 mg/dL (0.6-1.0) H Estimated GFR (Cockcroft-Gault) 42.1 BUN/Creatinine Ratio 10 (6-20) Glucose Level 85 mg/dL (70-99) Calcium Level 8.9 mg/dL (8.5-10.1) Total Bilirubin 0.3 mg/dL (0.2-1.0) Aspartate Amino Transferase (AST) 16 U/L (15-37) Alanine Aminotransferase (ALT) 19 U/L (14-59) Alkaline Phosphatase 103 U/L (46-116) Total Protein 7.2 g/dL (6.4-8.2) Albumin 3.0 g/dL (3.4-5.0) L Albumin/Globulin Ratio 0.7 (1.0-1.7) L Valproic Acid Level 47 mcg/mL (50-100) L Valproic Acid Last Dose Date 04/03/2018 Valproic Acid Last Dose Time 2100 Current Medications: Meds: Current Medications Acetaminophen (Tylenol) 650 mg PRN Q6HRS PRN PO PAIN / TEMP; Start 03/30/18 at 23:15 Multi-Ingredient Ointment (Analgesic [place]) 1 maikel PRN QID PRN TP MUSCLE PAIN; Start 03/30/18 at 23:15 Al Hydroxide/Mg Hydroxide (Mylanta Plus Xs) 15 ml PRN AFTMEALHC PRN PO DYSPEPSIA; Start 03/30/18 at 23:15 Magnesium Hydroxide (Milk Of Magnesia) 2,400 mg PRN QHS PRN PO CONSTIPATION; Start 03/30/18 at 23:15 Vitamin D (Vitamin D3) 1,000 unit DAILY PO Last administered on 04/04/18at 07:45 ; Start 03/31/18 at 09:00 Cyclobenzaprine HCl (Flexeril) 10 mg PRN BID PRN PO MUSCLE PAIN; Start at 23:30 Fish Oil (Fish Oil) 1,000 mg DAILY PO Last administered on 04/04/18at 07:45; Start 03/31/18 at 09:00 Trimethoprim/ Sulfamethoxazole (Bactrim Ds) 1 tab BID PO Last administered on 19:58; Start 03/31/18 at 09:00 Tramadol HCl (Ultram) 50 mg PRN BID PRN PO PAIN; Start 03/30/18 at 23:30 Atenolol (Tenormin) 50 mg DAILY PO Last administered on 04/02/18at 08:08; Start 03/31/18 at 09:00 Celecoxib (CeleBREX) 200 mg DAILY PO Last administered on 04/04/18 07:45; Start 03/31/18 at 09:00 Citalopram Hydrobromide (CeleXA) 40 mg DAILY PO Last administered on 03/31/18at 08:26; Start 03/31/18 at 09:00; Stop 03/31/18 at 19:31; Status DC Clonazepam (KlonoPIN) 1 mg TID PO Last administered on 04/02/18at 13:02; Start 03/31/18 at 09:00; Stop 04/02/18 at 18:45; Status DC Mirtazapine (Remeron) 7.5 mg HS PO Last administered on 04/04/18at 19:58; Start 03/31/18 at 21:00 Montelukast Sodium (Singulair) 10 mg HS PO Last administered on 04/04/18at 19:58 ; Start 03/31/18 at 21:00 Oxybutynin Chloride (Ditropan) 5 mg TID PO Last administered on 04/04/18at 19:57 ; Start 03/31/18 at 09:00 Pantoprazole Sodium (Protonix) 40 mg DAILYAC PO Last administered on 04/04/18at 07:45; Start 03/31/18 at 07:30 Prazosin HCl (Minipress) 2 mg HS PO Last administered on 04/04/18at 19:55; Start 03/31/18 at 21:00 Risperidone (RisperDAL) 1.5 mg HS PO Last administered on 04/02/18at 20:39; Start 03/31/18 at 21:00; Stop 04/04/18 at 18:09; Status DC Losartan Potassium (Cozaar) 25 mg DAILY PO Last administered on 04/02/18at 08:07 ; Start 03/31/18 at 09:00 Lactobacillus Rhamnosus (Culturelle) 1 cap BID PO Last administered on at 19:57; Start 03/31/18 at 21:00 Fluoxetine HCl (PROzac) 20 mg DAILY PO Last administered on 04/04/18at 07:45; Start 04/01/18 at 09:00 Divalproex Sodium (Depakote Sprinkles) 250 mg BID PO Last administered on at 19:57; Start 04/01/18 at 21:00 Clonazepam (KlonoPIN) 1 mg BID PRN PO ANXIETY / AGITATION; Start 04/02/18 at 18 :45; Stop 04/02/18 at 18:45; Status DC Clonazepam (KlonoPIN) 0.5 mg PRN BID PRN PO ANXIETY / AGITATION; Start at 18:45 Risperidone (RisperDAL) 0.75 mg HS PO Last administered on 04/04/18at 19:56; Start 04/04/18 at 21:00 Active Scripts Active Sulfamethoxazole-Tmp Ds Tablet (Sulfamethoxazole/Trimethoprim) 1 Each Tablet 1 Tab PO BID 7 Days Reported Vitamin D3 (Cholecalciferol (Vitamin D3)) 1,000 Unit Tablet 1,000 Unit PO DAILY LAST DOSE GIVEN: DATE: TIME: NEXT DOSE DUE: DATE: TIME: Celecoxib 200 Mg Capsule 200 Mg PO DAILY LAST DOSE GIVEN: DATE: TIME: NEXT DOSE DUE: DATE: TIME: Oxybutynin Chloride Er (Oxybutynin Chloride) 15 Mg Tab.er.24 15 Mg PO DAILY LAST DOSE GIVEN: DATE: TIME: NEXT DOSE DUE: DATE: TIME: Fish Oil 1,000 Mg Capsule ([place]-3 Fatty Acids/Fish Oil) 1 Each Capsule 1,000 Mg PO DAILY LAST DOSE GIVEN: DATE: TIME: NEXT DOSE DUE: DATE: TIME: Pantoprazole Sodium 40 Mg Tablet.dr 40 Mg PO DAILY LAST DOSE GIVEN: DATE: TIME: NEXT DOSE DUE: DATE: TIME: Montelukast Sodium Tablet (Montelukast Sodium) 10 Mg Tablet 10 Mg PO HS LAST DOSE GIVEN: DATE: TIME: NEXT DOSE DUE: DATE: TIME: Tramadol Hcl (Tramadol HCl) 50 Mg Tablet 50 Mg PO PRN BID PRN LAST DOSE GIVEN: DATE: TIME: NEXT DOSE DUE: DATE: TIME: Cyclobenzaprine Hcl 10 Mg Tablet 10 Mg PO PRN BID PRN LAST DOSE GIVEN: DATE: 03/30/18 TIME: 0900 NEXT DOSE DUE: DATE:03/31/18 TIME:0900 Telmisartan 20 Mg Tablet 20 Mg PO DAILY LAST DOSE GIVEN: DATE: TIME: NEXT DOSE DUE: DATE: TIME: Mirtazapine 15 Mg Tablet 7.5 Mg PO HS LAST DOSE GIVEN: DATE: TIME: NEXT DOSE DUE: DATE: TIME: Citalopram Hbr (Citalopram Hydrobromide) 40 Mg Tablet 40 Mg PO DAILY LAST DOSE GIVEN: DATE: TIME: NEXT DOSE DUE: DATE: TIME: Risperidone 1 Mg Tablet 1.5 Mg PO HS LAST DOSE GIVEN: DATE: TIME: NEXT DOSE DUE: DATE: TIME: Atenolol 50 Mg Tablet 50 Mg PO DAILY LAST DOSE GIVEN: DATE: TIME: NEXT DOSE DUE: DATE: TIME: Prazosin Hcl 2 Mg Capsule 2 Mg PO HS LAST DOSE GIVEN: DATE: TIME: NEXT DOSE DUE: DATE: TIME: Clonazepam 1 Mg Tablet 1 Mg PO TID LAST DOSE GIVEN: DATE: TIME: NEXT DOSE DUE: DATE: TIME: I have reviewed the current psychotropics carefully including drug interactions. Risk benefit ratio favors no change other than as noted in my dictated progress note. Diagnosis: Problems: (1) Anxiety disorder (2) Bipolar affective, mixed, sev w/ psych (3) UTI (urinary tract infection) (4) Bipolar disorder, mixed (5) Impulse control disorder (6) Bipolar 1 disorder JULISSA ALLEN MD Apr 04, 2018 20:54
--- NOTE | 2018-04-05 00:19 | PN ---
DATE: 04/02/2018 This is a late entry for 04/02/2018 and covers the elements not covered in my initial note. SUBJECTIVE: I met with the patient in the evening. The patient slept 6-1/4 hours previous evening, I reviewed the records from [facility] where she was treated for diagnosis of major depressive disorder, posttraumatic stress disorder, psychotic disorder. A very careful review of her history; however, does reveal history of mood swings suggestive of bipolar disorder, most recently manic with psychotic features, though in the past she has been depressed. REVIEW OF SYSTEMS: No CV, , pulmonary, eye, ENT system symptoms on review. MENTAL STATUS EXAM: Reasonably oriented. Speech coherent, still somewhat pressured. Abstraction fair, computation impaired, language function intact. Attention span short. Speech is typical for her. No suicidal or homicidal ideation. LABORATORY DATA: Reviewed. IMPRESSION: Probable bipolar 1 disorder, mixed with psychotic features. Rest unchanged from initial note including posttraumatic stress disorder, major depressive disorder by history with psychotic features, status post urinary tract infection. PLAN: Klonopin is 1 mg 3 times a day. She was on 1 mg b.i.d. and 0.5 b.i.d. p.r.n. at the [facility] and we will drop it down to that dosage and then gradually reduce it further as the Depakote becomes therapeutic. Depakote is 250 b.i.d. Labs are to be checked on 04/04/2018 including level. Continue Prozac, Remeron, Risperdal at current dosage. JULISSA ALLEN MD DR: MILLER/mira JOB#: [id number] / [id number]
--- NOTE | 2018-04-05 00:20 | PN ---
DATE: 04/03/2018 This late entry 04/03/2018 covers elements not covered in my initial note. SUBJECTIVE: I met with the patient in the evening. The patient was staffed at a treatment team meeting with the entire team in the morning. The patient slept 6-1/2 hours. was unavailable for the treatment team meeting. Reviewed her past history from the [facility] and close review of the history is reflective of bipolar disorder. She has less pressure of speech, less agitation, but these persist. REVIEW OF SYSTEMS: No CV, , pulmonary, eye, ENT system symptoms on review. MENTAL STATUS EXAM: Oriented to herself and situation. Speech is coherent, still somewhat pressured. Abstraction fair, computation impaired, language function intact, attention span short. Mood and affect remain somewhat labile, grandiose at times. LABORATORY DATA: Reviewed. IMPRESSION: Unchanged from initial note, bipolar 1 disorder, mixed with history of psychotic features. PLAN: Continue Depakote with labs to be checked 04/04/2018, consider then reducing the Klonopin. Maintain Prozac, Remeron, Risperdal for now. MAN Cassy ALLEN MD DR: MILLER/mira JOB#: [id number] / [id number]
[2018-04-05 05:54] VITALS: BP 90/62
--- NOTE | 2018-04-05 08:22 | RAD ---
Chest, PA and Lateral: Technique: PA and lateral views of the chest were obtained. History: Choking on fluids. Comparison: 03/27/2018. Findings: The heart and pulmonary vasculature appear within normal limits. The lungs are clear. The pleural margins are clear. Impression: No acute chest process is seen. Electronically signed by: Rosales Wagner MD (04/05/2018 8:18 AM) [facility]
[2018-04-05] MEDS: SMZ/TMP 800/160MG TABLET. PO SCH ×2 (08:54→20:27)
[2018-04-05] MEDS: CELECOXIB 100 MG CAPSULE PO SCH (08:54)
[2018-04-05] MEDS: PANTOPRAZOLE 40 MG TABLET. PO SCH (08:54)
[2018-04-05] MEDS: FLUoxetine HCL 20 MG CAPSULE PO SCH (08:55)
[2018-04-05] MEDS: OMEGA-3 FATTY ACIDS/FISH OIL 1,000 MG CAPSULE. PO SCH (08:55)
[2018-04-05] MEDS: OXYBUTYNIN CHLORIDE 5 MG TABLET PO SCH ×3 (08:55→20:25)
[2018-04-05] MEDS: DIVALPROEX 125 MG CAP.SPRINK PO SCH ×2 (08:55→20:25)
[2018-04-05] MEDS: CHOLECALCIFEROL (VITAMIN D3) 1,000 UNIT TABLET PO SCH (08:55)
[2018-04-05] MEDS: LACTOBACILLUS RHAMNOSUS GG 1 CAPSULE. PO SCH ×2 (08:55→20:25)
[2018-04-05] MEDS: ATENOLOL 50 MG TABLET PO SCH (09:00)
[2018-04-05] MEDS: LOSARTAN 25 MG TABLET. PO SCH (09:00)
[2018-04-05 16:04] VITALS: BP 147/72
[2018-04-05] MEDS: MIRTAZAPINE 7.5 MG TABLET. PO SCH (20:24)
[2018-04-05] MEDS: PRAZOSIN 1 MG CAPSULE. PO SCH (20:24)
[2018-04-05] MEDS: MONTELUKAST 10 MG TABLET. PO SCH (20:25)
[2018-04-05] MEDS: risperiDONE 0.5 MG TABLET. PO SCH (20:26)
--- NOTE | 2018-04-05 23:08 | PDOC ---
Exam Note: Bharathi Note: Please also refer to the separate dictated note~for this date of service dictated separately.~Patient seen individually. Discussed the patient with Nursing staff reviewed the chart.~Reviewed interim history and current functioning. Reviewed vital signs,~Labs/ Radiology~and current medications noted below. Continue current treatment with the changes noted in the dictated addendum note Assessment: Vital Signs: Vital Signs Date Time Temp Pulse Resp B/P (MAP) Pulse Ox O2 Delivery O2 Flow Rate FiO2 04/05/18 20:24 95 147/72 04/05/18 16:04 97.6 18 97 Room Air I&O Intake and Output 04/05/18 06:59 Intake Total 1318 ml Balance 1318 ml Intake Oral 1318 ml # Voids 1 Current Medications: Meds: Current Medications Acetaminophen (Tylenol) 650 mg PRN Q6HRS PRN PO PAIN / TEMP; Start 03/30/18 at 23:15 Multi-Ingredient Ointment (Analgesic [place]) 1 maikel PRN QID PRN TP MUSCLE PAIN; Start 03/30/18 at 23:15 Al Hydroxide/Mg Hydroxide (Mylanta Plus Xs) 15 ml PRN AFTMEALHC PRN PO DYSPEPSIA; Start 03/30/18 at 23:15 Magnesium Hydroxide (Milk Of Magnesia) 2,400 mg PRN QHS PRN PO CONSTIPATION; Start 03/30/18 at 23:15 Vitamin D (Vitamin D3) 1,000 unit DAILY PO Last administered on 04/05/18at 08:55 ; Start 03/31/18 at 09:00 Cyclobenzaprine HCl (Flexeril) 10 mg PRN BID PRN PO MUSCLE PAIN; Start at 23:30 Fish Oil (Fish Oil) 1,000 mg DAILY PO Last administered on 04/05/18at 08:55; Start 03/31/18 at 09:00 Trimethoprim/ Sulfamethoxazole (Bactrim Ds) 1 tab BID PO Last administered on at 20:27; Start 03/31/18 at 09:00 Tramadol HCl (Ultram) 50 mg PRN BID PRN PO PAIN; Start 03/30/18 at 23:30 Atenolol (Tenormin) 50 mg DAILY PO Last administered on 04/02/18at 08:08; Start 03/31/18 at 09:00 Celecoxib (CeleBREX) 200 mg DAILY PO Last administered on 04/05/18 08:54; Start 03/31/18 at 09:00 Citalopram Hydrobromide (CeleXA) 40 mg DAILY PO Last administered on 03/31/18at 08:26; Start 03/31/18 at 09:00; Stop 03/31/18 at 19:31; Status DC Clonazepam (KlonoPIN) 1 mg TID PO Last administered on 04/02/18at 13:02; Start 03/31/18 at 09:00; Stop 04/02/18 at 18:45; Status DC Mirtazapine (Remeron) 7.5 mg HS PO Last administered on 04/05/18 20:24; Start 03/31/18 at 21:00 Montelukast Sodium (Singulair) 10 mg HS PO Last administered on 04/05/18 20:25 ; Start 03/31/18 at 21:00 Oxybutynin Chloride (Ditropan) 5 mg TID PO Last administered on 04/05/18 20:25 ; Start 03/31/18 at 09:00 Pantoprazole Sodium (Protonix) 40 mg DAILYAC PO Last administered on 04/05/18 08:54; Start 03/31/18 at 07:30 Prazosin HCl (Minipress) 2 mg HS PO Last administered on 04/05/18 20:24; Start 03/31/18 at 21:00 Risperidone (RisperDAL) 1.5 mg HS PO Last administered on 04/02/18at 20:39; Start 03/31/18 at 21:00; Stop 04/04/18 at 18:09; Status DC Losartan Potassium (Cozaar) 25 mg DAILY PO Last administered on 04/02/18at 08:07 ; Start 03/31/18 at 09:00 Lactobacillus Rhamnosus (Culturelle) 1 cap BID PO Last administered on 20:25; Start 03/31/18 at 21:00 Fluoxetine HCl (PROzac) 20 mg DAILY PO Last administered on 04/05/18 08:55; Start 04/01/18 at 09:00 Divalproex Sodium (Depakote Sprinkles) 250 mg BID PO Last administered on 7/21/ 18at 08:55; Start 04/01/18 at 21:00; Stop 04/05/18 at 13:57; Status DC Clonazepam (KlonoPIN) 1 mg BID PRN PO ANXIETY / AGITATION; Start 04/02/18 at 18 :45; Stop 04/02/18 at 18:45; Status DC Clonazepam (KlonoPIN) 0.5 mg PRN BID PRN PO ANXIETY / AGITATION; Start at 18:45 Risperidone (RisperDAL) 0.75 mg HS PO Last administered on 04/05/18at 20:26; Start 04/04/18 at 21:00 Divalproex Sodium (Depakote Sprinkles) 250 mg DAILY PO ; Start 04/06/18 at 09:00 Divalproex Sodium (Depakote Sprinkles) 500 mg HS PO Last administered on at 20:25; Start 04/05/18 at 21:00 Active Scripts Active Sulfamethoxazole-Tmp Ds Tablet (Sulfamethoxazole/Trimethoprim) 1 Each Tablet 1 Tab PO BID 7 Days Reported Vitamin D3 (Cholecalciferol (Vitamin D3)) 1,000 Unit Tablet 1,000 Unit PO DAILY LAST DOSE GIVEN: DATE: TIME: NEXT DOSE DUE: DATE: TIME: Celecoxib 200 Mg Capsule 200 Mg PO DAILY LAST DOSE GIVEN: DATE: TIME: NEXT DOSE DUE: DATE: TIME: Oxybutynin Chloride Er (Oxybutynin Chloride) 15 Mg Tab.er.24 15 Mg PO DAILY LAST DOSE GIVEN: DATE: TIME: NEXT DOSE DUE: DATE: TIME: Fish Oil 1,000 Mg Capsule ([place]-3 Fatty Acids/Fish Oil) 1 Each Capsule 1,000 Mg PO DAILY LAST DOSE GIVEN: DATE: TIME: NEXT DOSE DUE: DATE: TIME: Pantoprazole Sodium 40 Mg Tablet.dr 40 Mg PO DAILY LAST DOSE GIVEN: DATE: TIME: NEXT DOSE DUE: DATE: TIME: Montelukast Sodium Tablet (Montelukast Sodium) 10 Mg Tablet 10 Mg PO HS LAST DOSE GIVEN: DATE: TIME: NEXT DOSE DUE: DATE: TIME: Tramadol Hcl (Tramadol HCl) 50 Mg Tablet 50 Mg PO PRN BID PRN LAST DOSE GIVEN: DATE: TIME: NEXT DOSE DUE: DATE: TIME: Cyclobenzaprine Hcl 10 Mg Tablet 10 Mg PO PRN BID PRN LAST DOSE GIVEN: DATE: 03/30/18 TIME: 0900 NEXT DOSE DUE: DATE:03/31/18 TIME:0900 Telmisartan 20 Mg Tablet 20 Mg PO DAILY LAST DOSE GIVEN: DATE: TIME: NEXT DOSE DUE: DATE: TIME: Mirtazapine 15 Mg Tablet 7.5 Mg PO HS LAST DOSE GIVEN: DATE: TIME: NEXT DOSE DUE: DATE: TIME: Citalopram Hbr (Citalopram Hydrobromide) 40 Mg Tablet 40 Mg PO DAILY LAST DOSE GIVEN: DATE: TIME: NEXT DOSE DUE: DATE: TIME: Risperidone 1 Mg Tablet 1.5 Mg PO HS LAST DOSE GIVEN: DATE: TIME: NEXT DOSE DUE: DATE: TIME: Atenolol 50 Mg Tablet 50 Mg PO DAILY LAST DOSE GIVEN: DATE: TIME: NEXT DOSE DUE: DATE: TIME: Prazosin Hcl 2 Mg Capsule 2 Mg PO HS LAST DOSE GIVEN: DATE: TIME: NEXT DOSE DUE: DATE: TIME: Clonazepam 1 Mg Tablet 1 Mg PO TID LAST DOSE GIVEN: DATE: TIME: NEXT DOSE DUE: DATE: TIME: I have reviewed the current psychotropics carefully including drug interactions. Risk benefit ratio favors no change other than as noted in my dictated progress note. Diagnosis: Problems: (1) Anxiety disorder (2) Bipolar affective, mixed, sev w/ psych (3) Bipolar disorder, mixed (4) Impulse control disorder (5) Bipolar 1 disorder JULISSA ALLEN MD Apr 05, 2018 23:08
[2018-04-06 05:46] VITALS: BP 100/51
[2018-04-06] MEDS: LOSARTAN 25 MG TABLET. PO SCH (09:00)
[2018-04-06] MEDS: ATENOLOL 50 MG TABLET PO SCH (09:00)
[2018-04-06] MEDS: PANTOPRAZOLE 40 MG TABLET. PO SCH (09:22)
[2018-04-06] MEDS: SMZ/TMP 800/160MG TABLET. PO SCH ×2 (09:22→19:52)
[2018-04-06] MEDS: OMEGA-3 FATTY ACIDS/FISH OIL 1,000 MG CAPSULE. PO SCH (09:22)
[2018-04-06] MEDS: CELECOXIB 100 MG CAPSULE PO SCH (09:22)
[2018-04-06] MEDS: OXYBUTYNIN CHLORIDE 5 MG TABLET PO SCH ×3 (09:23→19:53)
[2018-04-06] MEDS: LACTOBACILLUS RHAMNOSUS GG 1 CAPSULE. PO SCH ×2 (09:23→19:55)
[2018-04-06] MEDS: FLUoxetine HCL 20 MG CAPSULE PO SCH (09:24)
[2018-04-06] MEDS: CHOLECALCIFEROL (VITAMIN D3) 1,000 UNIT TABLET PO SCH (09:24)
[2018-04-06] MEDS: DIVALPROEX 125 MG CAP.SPRINK PO SCH ×2 (09:24→19:55)
[2018-04-06 16:13] VITALS: BP 150/89
--- NOTE | 2018-04-06 18:17 | PN ---
DATE: 04/04/2018 PSYCHIATRIC PROGRESS NOTE This late entry 04/04/2018 covers elements not covered in my initial note. SUBJECTIVE: Met with the patient in the evening. The patient slept 7 hours previous evening, remains somewhat pressured in her speech, grandiose but doing better. REVIEW OF SYSTEMS: No CV, , pulmonary, eye, ENT system symptoms on review. Reliability poor, varies at times. MENTAL STATUS EXAM: Oriented to herself, situation. Speech is coherent, pressured at times. Abstraction fair, computation impaired, language function is intact. Mood and affect remain somewhat labile. LABORATORY DATA: Reviewed. IMPRESSION: Probable bipolar 1 disorder, mixed urinary tract infection. Rest unchanged. PLAN: Treat the UTI. Maintain psychotropics from initial note. Depakote is being adjusted. MAN Cassy ALLEN MD DR: MILLER/mira JOB#: [id number] / [id number]
--- NOTE | 2018-04-06 18:21 | PN ---
DATE: 04/05/2018 This is a late entry for 04/05/2018 and covers the elements not covered in my initial note. SUBJECTIVE: I met with the patient in the evening. The patient slept 5-1/4 hours previous night, did well at night during the day on 04/05/2018. Valproic acid level low at 47. REVIEW OF SYSTEMS: Positive for some possible aspiration risk while swallowing, we reconsulted Speech evaluation and this is not contributory. No CV, , GI, or pulmonary system symptoms on review other than above. MENTAL STATUS EXAM: Oriented to herself and situation. Speech is somewhat pressured at times. Abstraction fair, computation impaired, language function intact, attention span short. Mood and affect somewhat anxious, labile at times. LABORATORY DATA: Reviewed. IMPRESSION: Unchanged from initial note. PLAN: Valproic acid level low at 47. Increase Depakote Sprinkles from 250 mg a.m., 500 at bedtime. Check CBC, CMP, valproic acid level in 3 days. Rest unchanged. MAN Cassy ALLEN MD DR: MILLER/mira JOB#: [id number] / [id number]
[2018-04-06] MEDS: PRAZOSIN 1 MG CAPSULE. PO SCH (19:52)
[2018-04-06] MEDS: risperiDONE 0.5 MG TABLET. PO SCH (19:53)
[2018-04-06] MEDS: MIRTAZAPINE 7.5 MG TABLET. PO SCH (19:56)
[2018-04-06] MEDS: MONTELUKAST 10 MG TABLET. PO SCH (19:58)
--- NOTE | 2018-04-06 20:18 | PDOC ---
Exam Note: Bharathi Note: Please also refer to the separate dictated note~for this date of service dictated separately.~Patient seen individually. Discussed the patient with Nursing staff reviewed the chart.~Reviewed interim history and current functioning. Reviewed vital signs,~Labs/ Radiology~and current medications noted below. Continue current treatment with the changes noted in the dictated addendum note Assessment: Vital Signs: Vital Signs Date Time Temp Pulse Resp B/P (MAP) Pulse Ox O2 Delivery O2 Flow Rate FiO2 04/06/18 19:52 98 150/89 04/06/18 16:13 98.8 18 96 04/05/18 16:04 Room Air I&O Intake and Output 04/06/18 06:59 Intake Total 1080 ml Balance 1080 ml Intake Oral 1080 ml # Voids 1 # Bowel Movements 1 Current Medications: Meds: Current Medications Acetaminophen (Tylenol) 650 mg PRN Q6HRS PRN PO PAIN / TEMP; Start 03/30/18 at 23:15 Multi-Ingredient Ointment (Analgesic [place]) 1 maikel PRN QID PRN TP MUSCLE PAIN; Start 03/30/18 at 23:15 Al Hydroxide/Mg Hydroxide (Mylanta Plus Xs) 15 ml PRN AFTMEALHC PRN PO DYSPEPSIA; Start 03/30/18 at 23:15 Magnesium Hydroxide (Milk Of Magnesia) 2,400 mg PRN QHS PRN PO CONSTIPATION; Start 03/30/18 at 23:15 Vitamin D (Vitamin D3) 1,000 unit DAILY PO Last administered on 04/06/18at 09:24 ; Start 03/31/18 at 09:00 Cyclobenzaprine HCl (Flexeril) 10 mg PRN BID PRN PO MUSCLE PAIN; Start at 23:30 Fish Oil (Fish Oil) 1,000 mg DAILY PO Last administered on 04/06/18at 09:22; Start 03/31/18 at 09:00 Trimethoprim/ Sulfamethoxazole (Bactrim Ds) 1 tab BID PO Last administered on at 19:52; Start 03/31/18 at 09:00 Tramadol HCl (Ultram) 50 mg PRN BID PRN PO PAIN; Start 03/30/18 at 23:30 Atenolol (Tenormin) 50 mg DAILY PO Last administered on 04/02/18at 08:08; Start 03/31/18 at 09:00 Celecoxib (CeleBREX) 200 mg DAILY PO Last administered on 04/06/18 09:22; Start 03/31/18 at 09:00 Citalopram Hydrobromide (CeleXA) 40 mg DAILY PO Last administered on 03/31/18at 08:26; Start 03/31/18 at 09:00; Stop 03/31/18 at 19:31; Status DC Clonazepam (KlonoPIN) 1 mg TID PO Last administered on 04/02/18at 13:02; Start 03/31/18 at 09:00; Stop 04/02/18 at 18:45; Status DC Mirtazapine (Remeron) 7.5 mg HS PO Last administered on 04/06/18 19:56; Start 03/31/18 at 21:00 Montelukast Sodium (Singulair) 10 mg HS PO Last administered on 04/06/18 19:58 ; Start 03/31/18 at 21:00 Oxybutynin Chloride (Ditropan) 5 mg TID PO Last administered on 04/06/18 19:53 ; Start 03/31/18 at 09:00 Pantoprazole Sodium (Protonix) 40 mg DAILYAC PO Last administered on 04/06/18 09:22; Start 03/31/18 at 07:30 Prazosin HCl (Minipress) 2 mg HS PO Last administered on 04/06/18 19:52; Start 03/31/18 at 21:00 Risperidone (RisperDAL) 1.5 mg HS PO Last administered on 04/02/18at 20:39; Start 03/31/18 at 21:00; Stop 04/04/18 at 18:09; Status DC Losartan Potassium (Cozaar) 25 mg DAILY PO Last administered on 04/02/18at 08:07 ; Start 03/31/18 at 09:00 Lactobacillus Rhamnosus (Culturelle) 1 cap BID PO Last administered on 19:55; Start 03/31/18 at 21:00 Fluoxetine HCl (PROzac) 20 mg DAILY PO Last administered on 04/06/18at 09:24; Start 04/01/18 at 09:00 Divalproex Sodium (Depakote Sprinkles) 250 mg BID PO Last administered on at 08:55; Start 04/01/18 at 21:00; Stop 04/05/18 at 13:57; Status DC Clonazepam (KlonoPIN) 1 mg BID PRN PO ANXIETY / AGITATION; Start 04/02/18 at 18 :45; Stop 04/02/18 at 18:45; Status DC Clonazepam (KlonoPIN) 0.5 mg PRN BID PRN PO ANXIETY / AGITATION; Start at 18:45 Risperidone (RisperDAL) 0.75 mg HS PO Last administered on 04/06/18at 19:53; Start 04/04/18 at 21:00 Divalproex Sodium (Depakote Sprinkles) 250 mg DAILY PO Last administered on at 09:24; Start 04/06/18 at 09:00 Divalproex Sodium (Depakote Sprinkles) 500 mg HS PO Last administered on at 19:55; Start 04/05/18 at 21:00 Active Scripts Active Sulfamethoxazole-Tmp Ds Tablet (Sulfamethoxazole/Trimethoprim) 1 Each Tablet 1 Tab PO BID 7 Days Reported Vitamin D3 (Cholecalciferol (Vitamin D3)) 1,000 Unit Tablet 1,000 Unit PO DAILY LAST DOSE GIVEN: DATE: TIME: NEXT DOSE DUE: DATE: TIME: Celecoxib 200 Mg Capsule 200 Mg PO DAILY LAST DOSE GIVEN: DATE: TIME: NEXT DOSE DUE: DATE: TIME: Oxybutynin Chloride Er (Oxybutynin Chloride) 15 Mg Tab.er.24 15 Mg PO DAILY LAST DOSE GIVEN: DATE: TIME: NEXT DOSE DUE: DATE: TIME: Fish Oil 1,000 Mg Capsule ([place]-3 Fatty Acids/Fish Oil) 1 Each Capsule 1,000 Mg PO DAILY LAST DOSE GIVEN: DATE: TIME: NEXT DOSE DUE: DATE: TIME: Pantoprazole Sodium 40 Mg Tablet.dr 40 Mg PO DAILY LAST DOSE GIVEN: DATE: TIME: NEXT DOSE DUE: DATE: TIME: Montelukast Sodium Tablet (Montelukast Sodium) 10 Mg Tablet 10 Mg PO HS LAST DOSE GIVEN: DATE: TIME: NEXT DOSE DUE: DATE: TIME: Tramadol Hcl (Tramadol HCl) 50 Mg Tablet 50 Mg PO PRN BID PRN LAST DOSE GIVEN: DATE: TIME: NEXT DOSE DUE: DATE: TIME: Cyclobenzaprine Hcl 10 Mg Tablet 10 Mg PO PRN BID PRN LAST DOSE GIVEN: DATE: 03/30/18 TIME: 0900 NEXT DOSE DUE: DATE:03/31/18 TIME:0900 Telmisartan 20 Mg Tablet 20 Mg PO DAILY LAST DOSE GIVEN: DATE: TIME: NEXT DOSE DUE: DATE: TIME: Mirtazapine 15 Mg Tablet 7.5 Mg PO HS LAST DOSE GIVEN: DATE: TIME: NEXT DOSE DUE: DATE: TIME: Citalopram Hbr (Citalopram Hydrobromide) 40 Mg Tablet 40 Mg PO DAILY LAST DOSE GIVEN: DATE: TIME: NEXT DOSE DUE: DATE: TIME: Risperidone 1 Mg Tablet 1.5 Mg PO HS LAST DOSE GIVEN: DATE: TIME: NEXT DOSE DUE: DATE: TIME: Atenolol 50 Mg Tablet 50 Mg PO DAILY LAST DOSE GIVEN: DATE: TIME: NEXT DOSE DUE: DATE: TIME: Prazosin Hcl 2 Mg Capsule 2 Mg PO HS LAST DOSE GIVEN: DATE: TIME: NEXT DOSE DUE: DATE: TIME: Clonazepam 1 Mg Tablet 1 Mg PO TID LAST DOSE GIVEN: DATE: TIME: NEXT DOSE DUE: DATE: TIME: I have reviewed the current psychotropics carefully including drug interactions. Risk benefit ratio favors no change other than as noted in my dictated progress note. Diagnosis: Problems: (1) Anxiety disorder (2) Bipolar affective, mixed, sev w/ psych (3) UTI (urinary tract infection) (4) Bipolar disorder, mixed (5) Impulse control disorder (6) Bipolar 1 disorder JULISSA ALLEN MD Apr 06, 2018 20:18
[2018-04-07 06:25] VITALS: BP 117/63
[2018-04-07] MEDS: LACTOBACILLUS RHAMNOSUS GG 1 CAPSULE. PO SCH ×2 (07:30→19:37)
[2018-04-07] MEDS: PANTOPRAZOLE 40 MG TABLET. PO SCH (07:30)
[2018-04-07] MEDS: SMZ/TMP 800/160MG TABLET. PO SCH ×2 (07:30→19:36)
[2018-04-07] MEDS: CELECOXIB 100 MG CAPSULE PO SCH (07:30)
[2018-04-07] MEDS: OXYBUTYNIN CHLORIDE 5 MG TABLET PO SCH ×3 (07:31→19:37)
[2018-04-07] MEDS: OMEGA-3 FATTY ACIDS/FISH OIL 1,000 MG CAPSULE. PO SCH (07:31)
[2018-04-07] MEDS: FLUoxetine HCL 20 MG CAPSULE PO SCH (07:31)
[2018-04-07] MEDS: DIVALPROEX 125 MG CAP.SPRINK PO SCH ×2 (07:31→19:37)
[2018-04-07] MEDS: CHOLECALCIFEROL (VITAMIN D3) 1,000 UNIT TABLET PO SCH (07:32)
[2018-04-07] MEDS: ATENOLOL 50 MG TABLET PO SCH (07:32)
[2018-04-07] MEDS: LOSARTAN 25 MG TABLET. PO SCH (07:41)
[2018-04-07 16:11] VITALS: BP 127/66
[2018-04-07] MEDS: MONTELUKAST 10 MG TABLET. PO SCH (19:37)
[2018-04-07] MEDS: PRAZOSIN 1 MG CAPSULE. PO SCH (19:37)
[2018-04-07] MEDS: risperiDONE 0.5 MG TABLET. PO SCH (19:38)
[2018-04-07] MEDS: MIRTAZAPINE 7.5 MG TABLET. PO SCH (19:38)
--- NOTE | 2018-04-07 20:41 | PDOC ---
Exam Note: Bharathi Note: Please also refer to the separate dictated note~for this date of service dictated separately.~Patient seen individually. Discussed the patient with Nursing staff reviewed the chart.~Reviewed interim history and current functioning. Reviewed vital signs,~Labs/ Radiology~and current medications noted below. Continue current treatment with the changes noted in the dictated addendum note Assessment: Vital Signs: Vital Signs Date Time Temp Pulse Resp B/P (MAP) Pulse Ox O2 Delivery O2 Flow Rate FiO2 04/07/18 19:37 64 127/66 04/07/18 16:11 97.6 18 98 04/05/18 16:04 Room Air I&O Intake and Output 04/07/18 07:00 Intake Total 1205 ml Balance 1205 ml Intake Oral 1205 ml # Voids 1 # Bowel Movements 1 Current Medications: Meds: Current Medications Acetaminophen (Tylenol) 650 mg PRN Q6HRS PRN PO PAIN / TEMP; Start 03/30/18 at 23:15 Multi-Ingredient Ointment (Analgesic [place]) 1 maikel PRN QID PRN TP MUSCLE PAIN; Start 03/30/18 at 23:15 Al Hydroxide/Mg Hydroxide (Mylanta Plus Xs) 15 ml PRN AFTMEALHC PRN PO DYSPEPSIA; Start 03/30/18 at 23:15 Magnesium Hydroxide (Milk Of Magnesia) 2,400 mg PRN QHS PRN PO CONSTIPATION; Start 03/30/18 at 23:15 Vitamin D (Vitamin D3) 1,000 unit DAILY PO Last administered on 04/07/18at 07:32 ; Start 03/31/18 at 09:00 Cyclobenzaprine HCl (Flexeril) 10 mg PRN BID PRN PO MUSCLE PAIN; Start at 23:30 Fish Oil (Fish Oil) 1,000 mg DAILY PO Last administered on 04/07/18at 07:31; Start 03/31/18 at 09:00 Trimethoprim/ Sulfamethoxazole (Bactrim Ds) 1 tab BID PO Last administered on at 19:36; Start 03/31/18 at 09:00 Tramadol HCl (Ultram) 50 mg PRN BID PRN PO PAIN; Start 03/30/18 at 23:30 Atenolol (Tenormin) 50 mg DAILY PO Last administered on 04/07/18at 07:32; Start 03/31/18 at 09:00 Celecoxib (CeleBREX) 200 mg DAILY PO Last administered on 04/07/18 07:30; Start 03/31/18 at 09:00 Citalopram Hydrobromide (CeleXA) 40 mg DAILY PO Last administered on 03/31/18at 08:26; Start 03/31/18 at 09:00; Stop 03/31/18 at 19:31; Status DC Clonazepam (KlonoPIN) 1 mg TID PO Last administered on 04/02/18at 13:02; Start 03/31/18 at 09:00; Stop 04/02/18 at 18:45; Status DC Mirtazapine (Remeron) 7.5 mg HS PO Last administered on 04/07/18 19:38; Start 03/31/18 at 21:00 Montelukast Sodium (Singulair) 10 mg HS PO Last administered on 04/07/18 19:37 ; Start 03/31/18 at 21:00 Oxybutynin Chloride (Ditropan) 5 mg TID PO Last administered on 04/07/18 19:37 ; Start 03/31/18 at 09:00 Pantoprazole Sodium (Protonix) 40 mg DAILYAC PO Last administered on 04/07/18 07:30; Start 03/31/18 at 07:30 Prazosin HCl (Minipress) 2 mg HS PO Last administered on 04/07/18 19:37; Start 03/31/18 at 21:00 Risperidone (RisperDAL) 1.5 mg HS PO Last administered on 04/02/18at 20:39; Start 03/31/18 at 21:00; Stop 04/04/18 at 18:09; Status DC Losartan Potassium (Cozaar) 25 mg DAILY PO Last administered on 04/02/18 08:07 ; Start 03/31/18 at 09:00 Lactobacillus Rhamnosus (Culturelle) 1 cap BID PO Last administered on 19:37; Start 03/31/18 at 21:00 Fluoxetine HCl (PROzac) 20 mg DAILY PO Last administered on 04/07/18 07:31; Start 04/01/18 at 09:00 Divalproex Sodium (Depakote Sprinkles) 250 mg BID PO Last administered on at 08:55; Start 04/01/18 at 21:00; Stop 04/05/18 at 13:57; Status DC Clonazepam (KlonoPIN) 1 mg BID PRN PO ANXIETY / AGITATION; Start 04/02/18 at 18 :45; Stop 04/02/18 at 18:45; Status DC Clonazepam (KlonoPIN) 0.5 mg PRN BID PRN PO ANXIETY / AGITATION; Start at 18:45 Risperidone (RisperDAL) 0.75 mg HS PO Last administered on 04/07/18at 19:38; Start 04/04/18 at 21:00 Divalproex Sodium (Depakote Sprinkles) 250 mg DAILY PO Last administered on at 07:31; Start 04/06/18 at 09:00 Divalproex Sodium (Depakote Sprinkles) 500 mg HS PO Last administered on at 19:37; Start 04/05/18 at 21:00 Active Scripts Active Sulfamethoxazole-Tmp Ds Tablet (Sulfamethoxazole/Trimethoprim) 1 Each Tablet 1 Tab PO BID 7 Days Reported Vitamin D3 (Cholecalciferol (Vitamin D3)) 1,000 Unit Tablet 1,000 Unit PO DAILY LAST DOSE GIVEN: DATE: TIME: NEXT DOSE DUE: DATE: TIME: Celecoxib 200 Mg Capsule 200 Mg PO DAILY LAST DOSE GIVEN: DATE: TIME: NEXT DOSE DUE: DATE: TIME: Oxybutynin Chloride Er (Oxybutynin Chloride) 15 Mg Tab.er.24 15 Mg PO DAILY LAST DOSE GIVEN: DATE: TIME: NEXT DOSE DUE: DATE: TIME: Fish Oil 1,000 Mg Capsule ([place]-3 Fatty Acids/Fish Oil) 1 Each Capsule 1,000 Mg PO DAILY LAST DOSE GIVEN: DATE: TIME: NEXT DOSE DUE: DATE: TIME: Pantoprazole Sodium 40 Mg Tablet.dr 40 Mg PO DAILY LAST DOSE GIVEN: DATE: TIME: NEXT DOSE DUE: DATE: TIME: Montelukast Sodium Tablet (Montelukast Sodium) 10 Mg Tablet 10 Mg PO HS LAST DOSE GIVEN: DATE: TIME: NEXT DOSE DUE: DATE: TIME: Tramadol Hcl (Tramadol HCl) 50 Mg Tablet 50 Mg PO PRN BID PRN LAST DOSE GIVEN: DATE: TIME: NEXT DOSE DUE: DATE: TIME: Cyclobenzaprine Hcl 10 Mg Tablet 10 Mg PO PRN BID PRN LAST DOSE GIVEN: DATE: 03/30/18 TIME: 0900 NEXT DOSE DUE: DATE:03/31/18 TIME:0900 Telmisartan 20 Mg Tablet 20 Mg PO DAILY LAST DOSE GIVEN: DATE: TIME: NEXT DOSE DUE: DATE: TIME: Mirtazapine 15 Mg Tablet 7.5 Mg PO HS LAST DOSE GIVEN: DATE: TIME: NEXT DOSE DUE: DATE: TIME: Citalopram Hbr (Citalopram Hydrobromide) 40 Mg Tablet 40 Mg PO DAILY LAST DOSE GIVEN: DATE: TIME: NEXT DOSE DUE: DATE: TIME: Risperidone 1 Mg Tablet 1.5 Mg PO HS LAST DOSE GIVEN: DATE: TIME: NEXT DOSE DUE: DATE: TIME: Atenolol 50 Mg Tablet 50 Mg PO DAILY LAST DOSE GIVEN: DATE: TIME: NEXT DOSE DUE: DATE: TIME: Prazosin Hcl 2 Mg Capsule 2 Mg PO HS LAST DOSE GIVEN: DATE: TIME: NEXT DOSE DUE: DATE: TIME: Clonazepam 1 Mg Tablet 1 Mg PO TID LAST DOSE GIVEN: DATE: TIME: NEXT DOSE DUE: DATE: TIME: I have reviewed the current psychotropics carefully including drug interactions. Risk benefit ratio favors no change other than as noted in my dictated progress note. Diagnosis: Problems: (1) Anxiety disorder (2) Bipolar affective, mixed, sev w/ psych (3) UTI (urinary tract infection) (4) Bipolar disorder, mixed (5) Impulse control disorder (6) Bipolar 1 disorder JULISSA ALLEN MD Apr 07, 2018 20:41
--- NOTE | 2018-04-07 21:47 | PN ---
DATE: 04/06/2018 This is a late entry for 04/06/2018 covers elements not covered in my initial note. SUBJECTIVE: I met with the patient in the evening. The patient has been calm, cooperative, pleasant. Medication compliant. She has tolerated the reduction of Seroquel so far. No psychotic symptoms noted. REVIEW OF SYSTEMS: No CV, , pulmonary, eye, ENT system symptoms on review. MENTAL STATUS EXAM: Oriented to herself and situation. Speech has some latency, coherent. Abstraction fair, computation impaired, language function intact, attention span short. Mood and affect showing improvement. LABORATORY DATA: Reviewed. IMPRESSION: Unchanged from initial note. PLAN: No change from initial note. JULISSA ALLEN MD DR: MILLER/mira JOB#: [id number] / [id number]
[2018-04-08 05:54] VITALS: BP 94/52
[2018-04-08 08:17] LABS: BASO # 0.1 x10^3/uL (0.0-0.2); BASO % 1 % (0-3); EOS # 0.2 x10^3/uL (0.0-0.7); EOS % 3 % (0-3); HEMATOCRIT 37.4 % (36.0-47.0); HEMOGLOBIN 12.3 g/dL (12.0-15.5); LYMPH # 2.6 x10^3/uL (1.0-4.8); LYMPH % 33 % (24-48); MEAN CORPUSCULAR HEMOGLOBIN 27 pg (25-35); MEAN CORPUSCULAR HGB CONC 33 g/dL (31-37); MEAN CORPUSCULAR VOLUME 83 fL (79-100); MONO # 0.6 x10^3/uL (0.0-1.1); MONO % 7 % (0-9); NEUT # 4.4 x10^3uL (1.8-7.7); NEUT % 56 % (31-73); PLATELET COUNT 317 x10^3/uL (140-400); RED CELL DISTRIBUTION WIDTH 17.4 % (11.5-14.5); WHITE BLOOD COUNT 7.9 x10^3/uL (4.0-11.0)
[2018-04-08 08:26] LABS: ALBUMIN 3.2 g/dL (3.4-5.0); ALBUMIN/GLOBULIN RATIO 0.7 (1.0-1.7); CALCIUM 9.1 mg/dL (8.5-10.1); CREATININE 1.3 mg/dL (0.6-1.0); GFR 42.1; POTASSIUM 3.8 mmol/L (3.5-5.1); TOTAL BILIRUBIN 0.2 mg/dL (0.2-1.0); TOTAL PROTEIN 7.7 g/dL (6.4-8.2)
[2018-04-08] MEDS: SMZ/TMP 800/160MG TABLET. PO SCH (08:40)
[2018-04-08 08:49] LABS: VAL ACID 79 mcg/mL (50-100)
[2018-04-08] MEDS: OMEGA-3 FATTY ACIDS/FISH OIL 1,000 MG CAPSULE. PO SCH (09:25)
[2018-04-08] MEDS: LOSARTAN 25 MG TABLET. PO SCH (09:25)
[2018-04-08] MEDS: CELECOXIB 100 MG CAPSULE PO SCH (09:26)
[2018-04-08] MEDS: OXYBUTYNIN CHLORIDE 5 MG TABLET PO SCH ×3 (09:26→20:48)
[2018-04-08] MEDS: DIVALPROEX 125 MG CAP.SPRINK PO SCH ×2 (09:26→20:49)
[2018-04-08] MEDS: CHOLECALCIFEROL (VITAMIN D3) 1,000 UNIT TABLET PO SCH (09:26)
[2018-04-08] MEDS: ATENOLOL 50 MG TABLET PO SCH (09:27)
[2018-04-08] MEDS: PANTOPRAZOLE 40 MG TABLET. PO SCH (09:27)
[2018-04-08] MEDS: LACTOBACILLUS RHAMNOSUS GG 1 CAPSULE. PO SCH ×2 (09:27→20:47)
[2018-04-08] MEDS: FLUoxetine HCL 20 MG CAPSULE PO SCH (09:27)
[2018-04-08 16:03] VITALS: BP 141/76
[2018-04-08] MEDS: MONTELUKAST 10 MG TABLET. PO SCH (20:48)
[2018-04-08] MEDS: PRAZOSIN 1 MG CAPSULE. PO SCH (20:48)
[2018-04-08] MEDS: risperiDONE 0.5 MG TABLET. PO SCH (20:48)
[2018-04-08] MEDS: MIRTAZAPINE 7.5 MG TABLET. PO SCH (20:48)
--- NOTE | 2018-04-08 21:23 | PDOC ---
Exam Note: Bharathi Note: Please also refer to the separate dictated note~for this date of service dictated separately.~Patient seen individually. Discussed the patient with Nursing staff reviewed the chart.~Reviewed interim history and current functioning. Reviewed vital signs,~Labs/ Radiology~and current medications noted below. Continue current treatment with the changes noted in the dictated addendum note Assessment: Vital Signs: Vital Signs Date Time Temp Pulse Resp B/P (MAP) Pulse Ox O2 Delivery O2 Flow Rate FiO2 04/08/18 20:48 67 144/85 04/08/18 16:03 97.4 18 96 04/05/18 16:04 Room Air I&O Intake and Output 04/08/18 07:00 Intake Total 1800 ml Balance 1800 ml Intake Oral 1800 ml # Voids 1 Labs: Laboratory Tests Test 04/08/18 07:35 White Blood Count 7.9 x10^3/uL (4.0-11.0) Red Blood Count 4.50 x10^6/uL (3.50-5.40) Hemoglobin 12.3 g/dL (12.0-15.5) Hematocrit 37.4 % (36.0-47.0) Mean Corpuscular Volume 83 fL (79-100) Mean Corpuscular Hemoglobin 27 pg (25-35) Mean Corpuscular Hemoglobin Concent 33 g/dL (31-37) Red Cell Distribution Width 17.4 % (11.5-14.5) H Platelet Count 317 x10^3/uL (140-400) Neutrophils (%) (Auto) 56 % (31-73) Lymphocytes (%) (Auto) 33 % (24-48) Monocytes (%) (Auto) 7 % (0-9) Eosinophils (%) (Auto) 3 % (0-3) Basophils (%) (Auto) 1 % (0-3) Neutrophils # (Auto) 4.4 x10^3uL (1.8-7.7) Lymphocytes # (Auto) 2.6 x10^3/uL (1.0-4.8) Monocytes # (Auto) 0.6 x10^3/uL (0.0-1.1) Eosinophils # (Auto) 0.2 x10^3/uL (0.0-0.7) Basophils # (Auto) 0.1 x10^3/uL (0.0-0.2) Sodium Level 138 mmol/L (136-145) Potassium Level 3.8 mmol/L (3.5-5.1) Chloride Level 101 mmol/L (98-107) Carbon Dioxide Level 32 mmol/L (21-32) Anion Gap 5 (6-14) L Blood Urea Nitrogen 10 mg/dL (7-20) Creatinine 1.3 mg/dL (0.6-1.0) H Estimated GFR (Cockcroft-Gault) 42.1 BUN/Creatinine Ratio 8 (6-20) Glucose Level 79 mg/dL (70-99) Calcium Level 9.1 mg/dL (8.5-10.1) Total Bilirubin 0.2 mg/dL (0.2-1.0) Aspartate Amino Transferase (AST) 16 U/L (15-37) Alanine Aminotransferase (ALT) 20 U/L (14-59) Alkaline Phosphatase 108 U/L (46-116) Total Protein 7.7 g/dL (6.4-8.2) Albumin 3.2 g/dL (3.4-5.0) L Albumin/Globulin Ratio 0.7 (1.0-1.7) L Valproic Acid Level 79 mcg/mL (50-100) Valproic Acid Last Dose Date 04/08/18 Valproic Acid Last Dose Time 2100 Current Medications: Meds: Current Medications Acetaminophen (Tylenol) 650 mg PRN Q6HRS PRN PO PAIN / TEMP; Start 03/30/18 at 23:15 Multi-Ingredient Ointment (Analgesic [place]) 1 maikel PRN QID PRN TP MUSCLE PAIN; Start 03/30/18 at 23:15 Al Hydroxide/Mg Hydroxide (Mylanta Plus Xs) 15 ml PRN AFTMEALHC PRN PO DYSPEPSIA; Start 03/30/18 at 23:15 Magnesium Hydroxide (Milk Of Magnesia) 2,400 mg PRN QHS PRN PO CONSTIPATION; Start 03/30/18 at 23:15 Vitamin D (Vitamin D3) 1,000 unit DAILY PO Last administered on 04/08/18at 09:26 ; Start 03/31/18 at 09:00 Cyclobenzaprine HCl (Flexeril) 10 mg PRN BID PRN PO MUSCLE PAIN; Start at 23:30 Fish Oil (Fish Oil) 1,000 mg DAILY PO Last administered on 04/08/18 09:25; Start 03/31/18 at 09:00 Trimethoprim/ Sulfamethoxazole (Bactrim Ds) 1 tab BID PO Last administered on at 19:36; Start 03/31/18 at 09:00; Stop 04/08/18 at 08:41; Status DC Tramadol HCl (Ultram) 50 mg PRN BID PRN PO PAIN; Start 03/30/18 at 23:30 Atenolol (Tenormin) 50 mg DAILY PO Last administered on 04/07/18 07:32; Start 03/31/18 at 09:00 Celecoxib (CeleBREX) 200 mg DAILY PO Last administered on 04/08/18 09:26; Start 03/31/18 at 09:00 Citalopram Hydrobromide (CeleXA) 40 mg DAILY PO Last administered on 03/31/18at 08:26; Start 03/31/18 at 09:00; Stop 03/31/18 at 19:31; Status DC Clonazepam (KlonoPIN) 1 mg TID PO Last administered on 04/02/18at 13:02; Start 03/31/18 at 09:00; Stop 04/02/18 at 18:45; Status DC Mirtazapine (Remeron) 7.5 mg HS PO Last administered on 04/08/18at 20:48; Start 03/31/18 at 21:00 Montelukast Sodium (Singulair) 10 mg HS PO Last administered on 04/08/18 20:48 ; Start 03/31/18 at 21:00 Oxybutynin Chloride (Ditropan) 5 mg TID PO Last administered on 04/08/18 20:48 ; Start 03/31/18 at 09:00 Pantoprazole Sodium (Protonix) 40 mg DAILYAC PO Last administered on 04/08/18 09:27; Start 03/31/18 at 07:30 Prazosin HCl (Minipress) 2 mg HS PO Last administered on 04/08/18 20:48; Start 03/31/18 at 21:00 Risperidone (RisperDAL) 1.5 mg HS PO Last administered on 04/02/18at 20:39; Start 03/31/18 at 21:00; Stop 04/04/18 at 18:09; Status DC Losartan Potassium (Cozaar) 25 mg DAILY PO Last administered on 04/02/18at 08:07 ; Start 03/31/18 at 09:00 Lactobacillus Rhamnosus (Culturelle) 1 cap BID PO Last administered on at 20:47; Start 03/31/18 at 21:00 Fluoxetine HCl (PROzac) 20 mg DAILY PO Last administered on 04/08/18 09:27; Start 04/01/18 at 09:00 Divalproex Sodium (Depakote Sprinkles) 250 mg BID PO Last administered on at 08:55; Start 04/01/18 at 21:00; Stop 04/05/18 at 13:57; Status DC Clonazepam (KlonoPIN) 1 mg BID PRN PO ANXIETY / AGITATION; Start 04/02/18 at 18 :45; Stop 04/02/18 at 18:45; Status DC Clonazepam (KlonoPIN) 0.5 mg PRN BID PRN PO ANXIETY / AGITATION; Start at 18:45 Risperidone (RisperDAL) 0.75 mg HS PO Last administered on 04/07/18at 19:38; Start 04/04/18 at 21:00; Stop 04/08/18 at 18:29; Status DC Divalproex Sodium (Depakote Sprinkles) 250 mg DAILY PO Last administered on 09:26; Start 04/06/18 at 09:00 Divalproex Sodium (Depakote Sprinkles) 500 mg HS PO Last administered on at 20:49; Start 04/05/18 at 21:00 Risperidone (RisperDAL) 0.5 mg HS PO Last administered on 04/08/18at 20:48; Start 04/08/18 at 21:00 Active Scripts Active Sulfamethoxazole-Tmp Ds Tablet (Sulfamethoxazole/Trimethoprim) 1 Each Tablet 1 Tab PO BID 7 Days Reported Vitamin D3 (Cholecalciferol (Vitamin D3)) 1,000 Unit Tablet 1,000 Unit PO DAILY LAST DOSE GIVEN: DATE: TIME: NEXT DOSE DUE: DATE: TIME: Celecoxib 200 Mg Capsule 200 Mg PO DAILY LAST DOSE GIVEN: DATE: TIME: NEXT DOSE DUE: DATE: TIME: Oxybutynin Chloride Er (Oxybutynin Chloride) 15 Mg Tab.er.24 15 Mg PO DAILY LAST DOSE GIVEN: DATE: TIME: NEXT DOSE DUE: DATE: TIME: Fish Oil 1,000 Mg Capsule ([place]-3 Fatty Acids/Fish Oil) 1 Each Capsule 1,000 Mg PO DAILY LAST DOSE GIVEN: DATE: TIME: NEXT DOSE DUE: DATE: TIME: Pantoprazole Sodium 40 Mg Tablet.dr 40 Mg PO DAILY LAST DOSE GIVEN: DATE: TIME: NEXT DOSE DUE: DATE: TIME: Montelukast Sodium Tablet (Montelukast Sodium) 10 Mg Tablet 10 Mg PO HS LAST DOSE GIVEN: DATE: TIME: NEXT DOSE DUE: DATE: TIME: Tramadol Hcl (Tramadol HCl) 50 Mg Tablet 50 Mg PO PRN BID PRN LAST DOSE GIVEN: DATE: TIME: NEXT DOSE DUE: DATE: TIME: Cyclobenzaprine Hcl 10 Mg Tablet 10 Mg PO PRN BID PRN LAST DOSE GIVEN: DATE: 03/30/18 TIME: 0900 NEXT DOSE DUE: DATE:03/31/18 TIME:0900 Telmisartan 20 Mg Tablet 20 Mg PO DAILY LAST DOSE GIVEN: DATE: TIME: NEXT DOSE DUE: DATE: TIME: Mirtazapine 15 Mg Tablet 7.5 Mg PO HS LAST DOSE GIVEN: DATE: TIME: NEXT DOSE DUE: DATE: TIME: Citalopram Hbr (Citalopram Hydrobromide) 40 Mg Tablet 40 Mg PO DAILY LAST DOSE GIVEN: DATE: TIME: NEXT DOSE DUE: DATE: TIME: Risperidone 1 Mg Tablet 1.5 Mg PO HS LAST DOSE GIVEN: DATE: TIME: NEXT DOSE DUE: DATE: TIME: Atenolol 50 Mg Tablet 50 Mg PO DAILY LAST DOSE GIVEN: DATE: TIME: NEXT DOSE DUE: DATE: TIME: Prazosin Hcl 2 Mg Capsule 2 Mg PO HS LAST DOSE GIVEN: DATE: TIME: NEXT DOSE DUE: DATE: TIME: Clonazepam 1 Mg Tablet 1 Mg PO TID LAST DOSE GIVEN: DATE: TIME: NEXT DOSE DUE: DATE: TIME: I have reviewed the current psychotropics carefully including drug interactions. Risk benefit ratio favors no change other than as noted in my dictated progress note. Diagnosis: Problems: (1) Anxiety disorder (2) Bipolar affective, mixed, sev w/ psych (3) UTI (urinary tract infection) (4) Bipolar disorder, mixed (5) Impulse control disorder (6) Bipolar 1 disorder ALEJANDRO,MAN M MD Apr 08, 2018 21:23
--- NOTE | 2018-04-08 23:37 | PN ---
DATE: 04/07/2018 This is a late entry, 04/07/2018, covers the elements not covered in my initial note. SUBJECTIVE: I met with the patient in the evening. The patient slept 6-1/2 hours the previous evening. She has had some swallowing problems, but his speech study was unremarkable and nursing staff wonder whether this is part of her anxiety, mood lability. REVIEW OF SYSTEMS: No CV, , pulmonary, eye system symptoms on review. MENTAL STATUS EXAM: Oriented to herself and situation. Speech coherent, somewhat pressured at times. Abstraction fair, computation impaired, language function intact, attention span short. Mood and affect remain somewhat anxious, labile. LABORATORY DATA: Reviewed. Valproic acid level was 47 at the last check and we have increased the Depakote since then. IMPRESSION: Unchanged from initial note. PLAN: Continue psychotropics from initial note. Check labs level on the Depakote again on the higher dosage, adjust to reach therapeutic level. MAN Cassy ALLEN MD DR: MILLER/mira JOB#: [id number] / [id number]
[2018-04-09 06:11] VITALS: BP 113/62
[2018-04-09] MEDS: PANTOPRAZOLE 40 MG TABLET. PO SCH (07:53)
[2018-04-09] MEDS: OXYBUTYNIN CHLORIDE 5 MG TABLET PO SCH ×3 (07:53→20:08)
[2018-04-09] MEDS: CHOLECALCIFEROL (VITAMIN D3) 1,000 UNIT TABLET PO SCH (07:53)
[2018-04-09] MEDS: LACTOBACILLUS RHAMNOSUS GG 1 CAPSULE. PO SCH ×2 (07:54→20:02)
[2018-04-09] MEDS: FLUoxetine HCL 20 MG CAPSULE PO SCH (07:54)
[2018-04-09] MEDS: OMEGA-3 FATTY ACIDS/FISH OIL 1,000 MG CAPSULE. PO SCH (07:54)
[2018-04-09] MEDS: LOSARTAN 25 MG TABLET. PO SCH (07:54)
[2018-04-09] MEDS: CELECOXIB 100 MG CAPSULE PO SCH (07:54)
[2018-04-09] MEDS: DIVALPROEX 125 MG CAP.SPRINK PO SCH ×2 (07:55→20:07)
[2018-04-09] MEDS: ATENOLOL 50 MG TABLET PO SCH (07:55)
[2018-04-09 16:26] VITALS: BP 160/84
--- NOTE | 2018-04-09 19:43 | PN ---
DATE: 04/08/2018 This late entry 04/08/2018 covers elements not covered in my initial note. SUBJECTIVE: I met with the patient in the evening. The patient slept 6 hours previous evening, continues to maher through her food and fluids. She tends to have some aspiration risk, but swallow study is unremarkable. REVIEW OF SYSTEMS: No CV, , pulmonary, eye, ENT system symptoms on review. MENTAL STATUS EXAM: Reasonably oriented. Speech is typical for her. Abstraction fair, computation impaired. Language function intact. Attention span short. Mood and affect remain somewhat anxious, labile. No clear psychotic symptoms. LABORATORY DATA: Reviewed. IMPRESSION: Probable bipolar 1 disorder, mixed anxiety disorder, unspecified. Rest unchanged. PLAN: Reduce the Risperdal from her current dosage of 0.75 mg p.o. at bedtime down to 0.5 mg p.o. at bedtime. Continue Depakote. Valproic acid level is therapeutic at 79. Continue Klonopin, Prozac, Remeron, prazosin at current dosage. MAN Cassy ALLEN MD DR: MILLER/mira JOB#: [id number] / [id number]
[2018-04-09] MEDS: MIRTAZAPINE 7.5 MG TABLET. PO SCH (20:02)
[2018-04-09] MEDS: PRAZOSIN 1 MG CAPSULE. PO SCH (20:04)
[2018-04-09] MEDS: risperiDONE 0.5 MG TABLET. PO SCH (20:08)
[2018-04-09] MEDS: MONTELUKAST 10 MG TABLET. PO SCH (20:08)
--- NOTE | 2018-04-09 21:06 | PDOC ---
Exam Note: Bharathi Note: Please also refer to the separate dictated note~for this date of service dictated separately.~Patient seen individually. Discussed the patient with Nursing staff reviewed the chart.~Reviewed interim history and current functioning. Reviewed vital signs,~Labs/ Radiology~and current medications noted below. Continue current treatment with the changes noted in the dictated addendum note Assessment: Vital Signs: Vital Signs Date Time Temp Pulse Resp B/P (MAP) Pulse Ox O2 Delivery O2 Flow Rate FiO2 04/09/18 20:04 78 160/84 04/09/18 16:26 98.7 17 96 Room Air I&O Intake and Output 04/09/18 07:00 Intake Total 1560 ml Balance 1560 ml Intake Oral 1560 ml # Voids 1 Current Medications: Meds: Current Medications Acetaminophen (Tylenol) 650 mg PRN Q6HRS PRN PO PAIN / TEMP; Start 03/30/18 at 23:15 Multi-Ingredient Ointment (Analgesic [place]) 1 maikel PRN QID PRN TP MUSCLE PAIN; Start 03/30/18 at 23:15 Al Hydroxide/Mg Hydroxide (Mylanta Plus Xs) 15 ml PRN AFTMEALHC PRN PO DYSPEPSIA; Start 03/30/18 at 23:15 Magnesium Hydroxide (Milk Of Magnesia) 2,400 mg PRN QHS PRN PO CONSTIPATION; Start 03/30/18 at 23:15 Vitamin D (Vitamin D3) 1,000 unit DAILY PO Last administered on 04/09/18at 07:53 ; Start 03/31/18 at 09:00 Cyclobenzaprine HCl (Flexeril) 10 mg PRN BID PRN PO MUSCLE PAIN; Start at 23:30 Fish Oil (Fish Oil) 1,000 mg DAILY PO Last administered on 04/09/18at 07:54; Start 03/31/18 at 09:00 Trimethoprim/ Sulfamethoxazole (Bactrim Ds) 1 tab BID PO Last administered on at 19:36; Start 03/31/18 at 09:00; Stop 04/08/18 at 08:41; Status DC Tramadol HCl (Ultram) 50 mg PRN BID PRN PO PAIN; Start 03/30/18 at 23:30 Atenolol (Tenormin) 50 mg DAILY PO Last administered on 04/09/18at 07:55; Start 03/31/18 at 09:00 Celecoxib (CeleBREX) 200 mg DAILY PO Last administered on 04/09/18 07:54; Start 03/31/18 at 09:00 Citalopram Hydrobromide (CeleXA) 40 mg DAILY PO Last administered on 03/31/18 08:26; Start 03/31/18 at 09:00; Stop 03/31/18 at 19:31; Status DC Clonazepam (KlonoPIN) 1 mg TID PO Last administered on 04/02/18 13:02; Start 03/31/18 at 09:00; Stop 04/02/18 at 18:45; Status DC Mirtazapine (Remeron) 7.5 mg HS PO Last administered on 04/09/18 20:02; Start 03/31/18 at 21:00 Montelukast Sodium (Singulair) 10 mg HS PO Last administered on 04/09/18 20:08 ; Start 03/31/18 at 21:00 Oxybutynin Chloride (Ditropan) 5 mg TID PO Last administered on 04/09/18 20:08 ; Start 03/31/18 at 09:00 Pantoprazole Sodium (Protonix) 40 mg DAILYAC PO Last administered on 04/09/18 07:53; Start 03/31/18 at 07:30 Prazosin HCl (Minipress) 2 mg HS PO Last administered on 04/09/18 20:04; Start 03/31/18 at 21:00 Risperidone (RisperDAL) 1.5 mg HS PO Last administered on 04/02/18at 20:39; Start 03/31/18 at 21:00; Stop 04/04/18 at 18:09; Status DC Losartan Potassium (Cozaar) 25 mg DAILY PO Last administered on 04/09/18 07:54 ; Start 03/31/18 at 09:00 Lactobacillus Rhamnosus (Culturelle) 1 cap BID PO Last administered on 20:02; Start 03/31/18 at 21:00 Fluoxetine HCl (PROzac) 20 mg DAILY PO Last administered on 04/09/18 07:54; Start 04/01/18 at 09:00 Divalproex Sodium (Depakote Sprinkles) 250 mg BID PO Last administered on 08:55; Start 04/01/18 at 21:00; Stop 04/05/18 at 13:57; Status DC Clonazepam (KlonoPIN) 1 mg BID PRN PO ANXIETY / AGITATION; Start 04/02/18 at 18 :45; Stop 04/02/18 at 18:45; Status DC Clonazepam (KlonoPIN) 0.5 mg PRN BID PRN PO ANXIETY / AGITATION; Start at 18:45 Risperidone (RisperDAL) 0.75 mg HS PO Last administered on 04/07/18at 19:38; Start 04/04/18 at 21:00; Stop 04/08/18 at 18:29; Status DC Divalproex Sodium (Depakote Sprinkles) 250 mg DAILY PO Last administered on at 07:55; Start 04/06/18 at 09:00 Divalproex Sodium (Depakote Sprinkles) 500 mg HS PO Last administered on at 20:07; Start 04/05/18 at 21:00 Risperidone (RisperDAL) 0.5 mg HS PO Last administered on 04/09/18at 20:08; Start 04/08/18 at 21:00 Active Scripts Active Sulfamethoxazole-Tmp Ds Tablet (Sulfamethoxazole/Trimethoprim) 1 Each Tablet 1 Tab PO BID 7 Days Reported Vitamin D3 (Cholecalciferol (Vitamin D3)) 1,000 Unit Tablet 1,000 Unit PO DAILY LAST DOSE GIVEN: DATE: TIME: NEXT DOSE DUE: DATE: TIME: Celecoxib 200 Mg Capsule 200 Mg PO DAILY LAST DOSE GIVEN: DATE: TIME: NEXT DOSE DUE: DATE: TIME: Oxybutynin Chloride Er (Oxybutynin Chloride) 15 Mg Tab.er.24 15 Mg PO DAILY LAST DOSE GIVEN: DATE: TIME: NEXT DOSE DUE: DATE: TIME: Fish Oil 1,000 Mg Capsule ([place]-3 Fatty Acids/Fish Oil) 1 Each Capsule 1,000 Mg PO DAILY LAST DOSE GIVEN: DATE: TIME: NEXT DOSE DUE: DATE: TIME: Pantoprazole Sodium 40 Mg Tablet.dr 40 Mg PO DAILY LAST DOSE GIVEN: DATE: TIME: NEXT DOSE DUE: DATE: TIME: Montelukast Sodium Tablet (Montelukast Sodium) 10 Mg Tablet 10 Mg PO HS LAST DOSE GIVEN: DATE: TIME: NEXT DOSE DUE: DATE: TIME: Tramadol Hcl (Tramadol HCl) 50 Mg Tablet 50 Mg PO PRN BID PRN LAST DOSE GIVEN: DATE: TIME: NEXT DOSE DUE: DATE: TIME: Cyclobenzaprine Hcl 10 Mg Tablet 10 Mg PO PRN BID PRN LAST DOSE GIVEN: DATE: 03/30/18 TIME: 0900 NEXT DOSE DUE: DATE:03/31/18 TIME:0900 Telmisartan 20 Mg Tablet 20 Mg PO DAILY LAST DOSE GIVEN: DATE: TIME: NEXT DOSE DUE: DATE: TIME: Mirtazapine 15 Mg Tablet 7.5 Mg PO HS LAST DOSE GIVEN: DATE: TIME: NEXT DOSE DUE: DATE: TIME: Citalopram Hbr (Citalopram Hydrobromide) 40 Mg Tablet 40 Mg PO DAILY LAST DOSE GIVEN: DATE: TIME: NEXT DOSE DUE: DATE: TIME: Risperidone 1 Mg Tablet 1.5 Mg PO HS LAST DOSE GIVEN: DATE: TIME: NEXT DOSE DUE: DATE: TIME: Atenolol 50 Mg Tablet 50 Mg PO DAILY LAST DOSE GIVEN: DATE: TIME: NEXT DOSE DUE: DATE: TIME: Prazosin Hcl 2 Mg Capsule 2 Mg PO HS LAST DOSE GIVEN: DATE: TIME: NEXT DOSE DUE: DATE: TIME: Clonazepam 1 Mg Tablet 1 Mg PO TID LAST DOSE GIVEN: DATE: TIME: NEXT DOSE DUE: DATE: TIME: I have reviewed the current psychotropics carefully including drug interactions. Risk benefit ratio favors no change other than as noted in my dictated progress note. Diagnosis: Problems: (1) Anxiety disorder (2) Bipolar affective, mixed, sev w/ psych (3) UTI (urinary tract infection) (4) Bipolar disorder, mixed (5) Impulse control disorder (6) Bipolar 1 disorder JULISSA ALLEN MD Apr 09, 2018 21:06
[2018-04-10 06:19] VITALS: BP 122/40
[2018-04-10] MEDS: OMEGA-3 FATTY ACIDS/FISH OIL 1,000 MG CAPSULE. PO SCH (07:37)
[2018-04-10] MEDS: FLUoxetine HCL 20 MG CAPSULE PO SCH (07:38)
[2018-04-10] MEDS: ATENOLOL 50 MG TABLET PO SCH (07:38)
[2018-04-10] MEDS: OXYBUTYNIN CHLORIDE 5 MG TABLET PO SCH ×3 (07:38→19:30)
[2018-04-10] MEDS: PANTOPRAZOLE 40 MG TABLET. PO SCH (07:39)
[2018-04-10] MEDS: CHOLECALCIFEROL (VITAMIN D3) 1,000 UNIT TABLET PO SCH (07:39)
[2018-04-10] MEDS: DIVALPROEX 125 MG CAP.SPRINK PO SCH ×2 (07:39→19:29)
[2018-04-10] MEDS: LACTOBACILLUS RHAMNOSUS GG 1 CAPSULE. PO SCH ×2 (07:39→19:30)
[2018-04-10] MEDS: CELECOXIB 100 MG CAPSULE PO SCH (07:39)
[2018-04-10] MEDS: LOSARTAN 25 MG TABLET. PO SCH (07:41)
[2018-04-10 16:06] VITALS: BP 123/77
[2018-04-10] MEDS: MIRTAZAPINE 7.5 MG TABLET. PO SCH (19:29)
[2018-04-10] MEDS: MONTELUKAST 10 MG TABLET. PO SCH (19:29)
[2018-04-10] MEDS: PRAZOSIN 1 MG CAPSULE. PO SCH (19:29)
[2018-04-10] MEDS: risperiDONE 0.5 MG TABLET. PO SCH (19:30)
--- NOTE | 2018-04-10 20:55 | PDOC ---
Exam Note: Bharathi Note: Please also refer to the separate dictated note~for this date of service dictated separately.~Patient seen individually. Discussed the patient with Nursing staff reviewed the chart.~Reviewed interim history and current functioning. Reviewed vital signs,~Labs/ Radiology~and current medications noted below. Continue current treatment with the changes noted in the dictated addendum note Assessment: Vital Signs: Vital Signs Date Time Temp Pulse Resp B/P (MAP) Pulse Ox O2 Delivery O2 Flow Rate FiO2 04/10/18 19:29 72 123/77 04/10/18 16:06 97.9 20 98 04/09/18 16:26 Room Air I&O Intake and Output 04/10/18 06:59 Intake Total 1680 ml Balance 1680 ml Intake Oral 1680 ml # Voids 1 # Bowel Movements 1 Current Medications: Meds: Current Medications Acetaminophen (Tylenol) 650 mg PRN Q6HRS PRN PO PAIN / TEMP; Start 03/30/18 at 23:15 Multi-Ingredient Ointment (Analgesic [place]) 1 maikel PRN QID PRN TP MUSCLE PAIN; Start 03/30/18 at 23:15 Al Hydroxide/Mg Hydroxide (Mylanta Plus Xs) 15 ml PRN AFTMEALHC PRN PO DYSPEPSIA; Start 03/30/18 at 23:15 Magnesium Hydroxide (Milk Of Magnesia) 2,400 mg PRN QHS PRN PO CONSTIPATION; Start 03/30/18 at 23:15 Vitamin D (Vitamin D3) 1,000 unit DAILY PO Last administered on 04/10/18at 07:39 ; Start 03/31/18 at 09:00 Cyclobenzaprine HCl (Flexeril) 10 mg PRN BID PRN PO MUSCLE PAIN; Start at 23:30 Fish Oil (Fish Oil) 1,000 mg DAILY PO Last administered on 04/10/18at 07:37; Start 03/31/18 at 09:00 Trimethoprim/ Sulfamethoxazole (Bactrim Ds) 1 tab BID PO Last administered on at 19:36; Start 03/31/18 at 09:00; Stop 04/08/18 at 08:41; Status DC Tramadol HCl (Ultram) 50 mg PRN BID PRN PO PAIN; Start 03/30/18 at 23:30 Atenolol (Tenormin) 50 mg DAILY PO Last administered on 04/10/18 07:38; Start 03/31/18 at 09:00 Celecoxib (CeleBREX) 200 mg DAILY PO Last administered on 04/10/18 07:39; Start 03/31/18 at 09:00 Citalopram Hydrobromide (CeleXA) 40 mg DAILY PO Last administered on 03/31/18 08:26; Start 03/31/18 at 09:00; Stop 03/31/18 at 19:31; Status DC Clonazepam (KlonoPIN) 1 mg TID PO Last administered on 04/02/18 13:02; Start 03/31/18 at 09:00; Stop 04/02/18 at 18:45; Status DC Mirtazapine (Remeron) 7.5 mg HS PO Last administered on 04/10/18 19:29; Start 03/31/18 at 21:00 Montelukast Sodium (Singulair) 10 mg HS PO Last administered on 04/10/18 19:29 ; Start 03/31/18 at 21:00 Oxybutynin Chloride (Ditropan) 5 mg TID PO Last administered on 04/10/18 19:30 ; Start 03/31/18 at 09:00 Pantoprazole Sodium (Protonix) 40 mg DAILYAC PO Last administered on 04/10/18 07:39; Start 03/31/18 at 07:30 Prazosin HCl (Minipress) 2 mg HS PO Last administered on 04/10/18 19:29; Start 03/31/18 at 21:00 Risperidone (RisperDAL) 1.5 mg HS PO Last administered on 04/02/18 20:39; Start 03/31/18 at 21:00; Stop 04/04/18 at 18:09; Status DC Losartan Potassium (Cozaar) 25 mg DAILY PO Last administered on 04/10/18 07:41 ; Start 03/31/18 at 09:00 Lactobacillus Rhamnosus (Culturelle) 1 cap BID PO Last administered on 19:30; Start 03/31/18 at 21:00 Fluoxetine HCl (PROzac) 20 mg DAILY PO Last administered on 04/10/18 07:38; Start 04/01/18 at 09:00 Divalproex Sodium (Depakote Sprinkles) 250 mg BID PO Last administered on at 08:55; Start 04/01/18 at 21:00; Stop 04/05/18 at 13:57; Status DC Clonazepam (KlonoPIN) 1 mg BID PRN PO ANXIETY / AGITATION; Start 04/02/18 at 18 :45; Stop 04/02/18 at 18:45; Status DC Clonazepam (KlonoPIN) 0.5 mg PRN BID PRN PO ANXIETY / AGITATION; Start at 18:45 Risperidone (RisperDAL) 0.75 mg HS PO Last administered on 04/07/18at 19:38; Start 04/04/18 at 21:00; Stop 04/08/18 at 18:29; Status DC Divalproex Sodium (Depakote Sprinkles) 250 mg DAILY PO Last administered on at 07:39; Start 04/06/18 at 09:00 Divalproex Sodium (Depakote Sprinkles) 500 mg HS PO Last administered on at 19:29; Start 04/05/18 at 21:00 Risperidone (RisperDAL) 0.5 mg HS PO Last administered on 04/10/18at 19:30; Start 04/08/18 at 21:00 Active Scripts Active Sulfamethoxazole-Tmp Ds Tablet (Sulfamethoxazole/Trimethoprim) 1 Each Tablet 1 Tab PO BID 7 Days Reported Vitamin D3 (Cholecalciferol (Vitamin D3)) 1,000 Unit Tablet 1,000 Unit PO DAILY LAST DOSE GIVEN: DATE: TIME: NEXT DOSE DUE: DATE: TIME: Celecoxib 200 Mg Capsule 200 Mg PO DAILY LAST DOSE GIVEN: DATE: TIME: NEXT DOSE DUE: DATE: TIME: Oxybutynin Chloride Er (Oxybutynin Chloride) 15 Mg Tab.er.24 15 Mg PO DAILY LAST DOSE GIVEN: DATE: TIME: NEXT DOSE DUE: DATE: TIME: Fish Oil 1,000 Mg Capsule ([place]-3 Fatty Acids/Fish Oil) 1 Each Capsule 1,000 Mg PO DAILY LAST DOSE GIVEN: DATE: TIME: NEXT DOSE DUE: DATE: TIME: Pantoprazole Sodium 40 Mg Tablet.dr 40 Mg PO DAILY LAST DOSE GIVEN: DATE: TIME: NEXT DOSE DUE: DATE: TIME: Montelukast Sodium Tablet (Montelukast Sodium) 10 Mg Tablet 10 Mg PO HS LAST DOSE GIVEN: DATE: TIME: NEXT DOSE DUE: DATE: TIME: Tramadol Hcl (Tramadol HCl) 50 Mg Tablet 50 Mg PO PRN BID PRN LAST DOSE GIVEN: DATE: TIME: NEXT DOSE DUE: DATE: TIME: Cyclobenzaprine Hcl 10 Mg Tablet 10 Mg PO PRN BID PRN LAST DOSE GIVEN: DATE: 03/30/18 TIME: 0900 NEXT DOSE DUE: DATE:03/31/18 TIME:09 Telmisartan 20 Mg Tablet 20 Mg PO DAILY LAST DOSE GIVEN: DATE: TIME: NEXT DOSE DUE: DATE: TIME: Mirtazapine 15 Mg Tablet 7.5 Mg PO HS LAST DOSE GIVEN: DATE: TIME: NEXT DOSE DUE: DATE: TIME: Citalopram Hbr (Citalopram Hydrobromide) 40 Mg Tablet 40 Mg PO DAILY LAST DOSE GIVEN: DATE: TIME: NEXT DOSE DUE: DATE: TIME: Risperidone 1 Mg Tablet 1.5 Mg PO HS LAST DOSE GIVEN: DATE: TIME: NEXT DOSE DUE: DATE: TIME: Atenolol 50 Mg Tablet 50 Mg PO DAILY LAST DOSE GIVEN: DATE: TIME: NEXT DOSE DUE: DATE: TIME: Prazosin Hcl 2 Mg Capsule 2 Mg PO HS LAST DOSE GIVEN: DATE: TIME: NEXT DOSE DUE: DATE: TIME: Clonazepam 1 Mg Tablet 1 Mg PO TID LAST DOSE GIVEN: DATE: TIME: NEXT DOSE DUE: DATE: TIME: I have reviewed the current psychotropics carefully including drug interactions. Risk benefit ratio favors no change other than as noted in my dictated progress note. Diagnosis: Problems: (1) Anxiety disorder (2) Bipolar affective, mixed, sev w/ psych (3) UTI (urinary tract infection) (4) Bipolar disorder, mixed (5) Impulse control disorder (6) Bipolar 1 disorder JULISSA ALLEN MD Apr 10, 2018 20:55
[2018-04-11 05:52] VITALS: BP 126/39
[2018-04-11] MEDS: FLUoxetine HCL 20 MG CAPSULE PO SCH (07:52)
[2018-04-11] MEDS: DIVALPROEX 125 MG CAP.SPRINK PO SCH ×2 (07:52→19:16)
[2018-04-11] MEDS: CHOLECALCIFEROL (VITAMIN D3) 1,000 UNIT TABLET PO SCH (07:52)
[2018-04-11] MEDS: OXYBUTYNIN CHLORIDE 5 MG TABLET PO SCH ×3 (07:52→19:16)
[2018-04-11] MEDS: LACTOBACILLUS RHAMNOSUS GG 1 CAPSULE. PO SCH ×2 (07:52→19:16)
[2018-04-11] MEDS: LOSARTAN 25 MG TABLET. PO SCH (07:52)
[2018-04-11] MEDS: OMEGA-3 FATTY ACIDS/FISH OIL 1,000 MG CAPSULE. PO SCH (07:53)
[2018-04-11] MEDS: PANTOPRAZOLE 40 MG TABLET. PO SCH (07:53)
[2018-04-11] MEDS: ATENOLOL 50 MG TABLET PO SCH (07:53)
[2018-04-11] MEDS: CELECOXIB 100 MG CAPSULE PO SCH (07:53)
[2018-04-11 16:07] VITALS: BP 126/86
[2018-04-11] MEDS: MIRTAZAPINE 7.5 MG TABLET. PO SCH (19:16)
[2018-04-11] MEDS: MONTELUKAST 10 MG TABLET. PO SCH (19:16)
[2018-04-11] MEDS: risperiDONE 0.5 MG TABLET. PO SCH (19:16)
[2018-04-11] MEDS: PRAZOSIN 1 MG CAPSULE. PO SCH (19:17)
--- NOTE | 2018-04-11 20:43 | PDOC ---
Exam Note: Bharathi Note: Please also refer to the separate dictated note~for this date of service dictated separately.~Patient seen individually. Discussed the patient with Nursing staff reviewed the chart.~Reviewed interim history and current functioning. Reviewed vital signs,~Labs/ Radiology~and current medications noted below. Continue current treatment with the changes noted in the dictated addendum note Assessment: Vital Signs: Vital Signs Date Time Temp Pulse Resp B/P (MAP) Pulse Ox O2 Delivery O2 Flow Rate FiO2 04/11/18 19:17 59 126/86 04/11/18 16:07 98.2 18 97 04/09/18 16:26 Room Air I&O Intake and Output 04/11/18 06:59 Intake Total 1080 ml Balance 1080 ml Intake Oral 1080 ml # Voids 1 Current Medications: Meds: Current Medications Acetaminophen (Tylenol) 650 mg PRN Q6HRS PRN PO PAIN / TEMP; Start 03/30/18 at 23:15 Multi-Ingredient Ointment (Analgesic [place]) 1 maikel PRN QID PRN TP MUSCLE PAIN; Start 03/30/18 at 23:15 Al Hydroxide/Mg Hydroxide (Mylanta Plus Xs) 15 ml PRN AFTMEALHC PRN PO DYSPEPSIA; Start 03/30/18 at 23:15 Magnesium Hydroxide (Milk Of Magnesia) 2,400 mg PRN QHS PRN PO CONSTIPATION; Start 03/30/18 at 23:15 Vitamin D (Vitamin D3) 1,000 unit DAILY PO Last administered on 04/11/18at 07:52 ; Start 03/31/18 at 09:00 Cyclobenzaprine HCl (Flexeril) 10 mg PRN BID PRN PO MUSCLE PAIN; Start at 23:30 Fish Oil (Fish Oil) 1,000 mg DAILY PO Last administered on 04/11/18at 07:53; Start 03/31/18 at 09:00 Trimethoprim/ Sulfamethoxazole (Bactrim Ds) 1 tab BID PO Last administered on at 19:36; Start 03/31/18 at 09:00; Stop 04/08/18 at 08:41; Status DC Tramadol HCl (Ultram) 50 mg PRN BID PRN PO PAIN; Start 03/30/18 at 23:30 Atenolol (Tenormin) 50 mg DAILY PO Last administered on 04/11/18 07:53; Start 03/31/18 at 09:00 Celecoxib (CeleBREX) 200 mg DAILY PO Last administered on 04/11/18 07:53; Start 03/31/18 at 09:00 Citalopram Hydrobromide (CeleXA) 40 mg DAILY PO Last administered on 03/31/18 08:26; Start 03/31/18 at 09:00; Stop 03/31/18 at 19:31; Status DC Clonazepam (KlonoPIN) 1 mg TID PO Last administered on 04/02/18 13:02; Start 03/31/18 at 09:00; Stop 04/02/18 at 18:45; Status DC Mirtazapine (Remeron) 7.5 mg HS PO Last administered on 04/11/18 19:16; Start 03/31/18 at 21:00 Montelukast Sodium (Singulair) 10 mg HS PO Last administered on 04/11/18 19:16 ; Start 03/31/18 at 21:00 Oxybutynin Chloride (Ditropan) 5 mg TID PO Last administered on 04/11/18 19:16 ; Start 03/31/18 at 09:00 Pantoprazole Sodium (Protonix) 40 mg DAILYAC PO Last administered on 04/11/18 07:53; Start 03/31/18 at 07:30 Prazosin HCl (Minipress) 2 mg HS PO Last administered on 04/11/18 19:17; Start 03/31/18 at 21:00 Risperidone (RisperDAL) 1.5 mg HS PO Last administered on 04/02/18at 20:39; Start 03/31/18 at 21:00; Stop 04/04/18 at 18:09; Status DC Losartan Potassium (Cozaar) 25 mg DAILY PO Last administered on 04/11/18 07:52 ; Start 03/31/18 at 09:00 Lactobacillus Rhamnosus (Culturelle) 1 cap BID PO Last administered on 19:16; Start 03/31/18 at 21:00 Fluoxetine HCl (PROzac) 20 mg DAILY PO Last administered on 04/11/18 07:52; Start 04/01/18 at 09:00 Divalproex Sodium (Depakote Sprinkles) 250 mg BID PO Last administered on at 08:55; Start 04/01/18 at 21:00; Stop 04/05/18 at 13:57; Status DC Clonazepam (KlonoPIN) 1 mg BID PRN PO ANXIETY / AGITATION; Start 04/02/18 at 18 :45; Stop 04/02/18 at 18:45; Status DC Clonazepam (KlonoPIN) 0.5 mg PRN BID PRN PO ANXIETY / AGITATION; Start at 18:45 Risperidone (RisperDAL) 0.75 mg HS PO Last administered on 04/07/18at 19:38; Start 04/04/18 at 21:00; Stop 04/08/18 at 18:29; Status DC Divalproex Sodium (Depakote Sprinkles) 250 mg DAILY PO Last administered on at 07:52; Start 04/06/18 at 09:00 Divalproex Sodium (Depakote Sprinkles) 500 mg HS PO Last administered on at 19:16; Start 04/05/18 at 21:00 Risperidone (RisperDAL) 0.5 mg HS PO Last administered on 04/11/18at 19:16; Start 04/08/18 at 21:00 Active Scripts Active Sulfamethoxazole-Tmp Ds Tablet (Sulfamethoxazole/Trimethoprim) 1 Each Tablet 1 Tab PO BID 7 Days Reported Vitamin D3 (Cholecalciferol (Vitamin D3)) 1,000 Unit Tablet 1,000 Unit PO DAILY LAST DOSE GIVEN: DATE: TIME: NEXT DOSE DUE: DATE: TIME: Celecoxib 200 Mg Capsule 200 Mg PO DAILY LAST DOSE GIVEN: DATE: TIME: NEXT DOSE DUE: DATE: TIME: Oxybutynin Chloride Er (Oxybutynin Chloride) 15 Mg Tab.er.24 15 Mg PO DAILY LAST DOSE GIVEN: DATE: TIME: NEXT DOSE DUE: DATE: TIME: Fish Oil 1,000 Mg Capsule ([place]-3 Fatty Acids/Fish Oil) 1 Each Capsule 1,000 Mg PO DAILY LAST DOSE GIVEN: DATE: TIME: NEXT DOSE DUE: DATE: TIME: Pantoprazole Sodium 40 Mg Tablet.dr 40 Mg PO DAILY LAST DOSE GIVEN: DATE: TIME: NEXT DOSE DUE: DATE: TIME: Montelukast Sodium Tablet (Montelukast Sodium) 10 Mg Tablet 10 Mg PO HS LAST DOSE GIVEN: DATE: TIME: NEXT DOSE DUE: DATE: TIME: Tramadol Hcl (Tramadol HCl) 50 Mg Tablet 50 Mg PO PRN BID PRN LAST DOSE GIVEN: DATE: TIME: NEXT DOSE DUE: DATE: TIME: Cyclobenzaprine Hcl 10 Mg Tablet 10 Mg PO PRN BID PRN LAST DOSE GIVEN: DATE: 03/30/18 TIME: 0900 NEXT DOSE DUE: DATE:03/31/18 TIME:09 Telmisartan 20 Mg Tablet 20 Mg PO DAILY LAST DOSE GIVEN: DATE: TIME: NEXT DOSE DUE: DATE: TIME: Mirtazapine 15 Mg Tablet 7.5 Mg PO HS LAST DOSE GIVEN: DATE: TIME: NEXT DOSE DUE: DATE: TIME: Citalopram Hbr (Citalopram Hydrobromide) 40 Mg Tablet 40 Mg PO DAILY LAST DOSE GIVEN: DATE: TIME: NEXT DOSE DUE: DATE: TIME: Risperidone 1 Mg Tablet 1.5 Mg PO HS LAST DOSE GIVEN: DATE: TIME: NEXT DOSE DUE: DATE: TIME: Atenolol 50 Mg Tablet 50 Mg PO DAILY LAST DOSE GIVEN: DATE: TIME: NEXT DOSE DUE: DATE: TIME: Prazosin Hcl 2 Mg Capsule 2 Mg PO HS LAST DOSE GIVEN: DATE: TIME: NEXT DOSE DUE: DATE: TIME: Clonazepam 1 Mg Tablet 1 Mg PO TID LAST DOSE GIVEN: DATE: TIME: NEXT DOSE DUE: DATE: TIME: I have reviewed the current psychotropics carefully including drug interactions. Risk benefit ratio favors no change other than as noted in my dictated progress note. Diagnosis: Problems: (1) Anxiety disorder (2) Bipolar affective, mixed, sev w/ psych (3) UTI (urinary tract infection) (4) Bipolar disorder, mixed (5) Impulse control disorder (6) Bipolar 1 disorder JULISSA ALLEN MD Apr 11, 2018 20:43
[2018-04-12 06:12] VITALS: BP 107/54
[2018-04-12] MEDS: OMEGA-3 FATTY ACIDS/FISH OIL 1,000 MG CAPSULE. PO SCH (07:27)
[2018-04-12] MEDS: OXYBUTYNIN CHLORIDE 5 MG TABLET PO SCH ×3 (07:27→19:57)
[2018-04-12] MEDS: DIVALPROEX 125 MG CAP.SPRINK PO SCH ×2 (07:28→19:57)
[2018-04-12] MEDS: PANTOPRAZOLE 40 MG TABLET. PO SCH (07:29)
[2018-04-12] MEDS: LACTOBACILLUS RHAMNOSUS GG 1 CAPSULE. PO SCH ×2 (07:29→19:57)
[2018-04-12] MEDS: CHOLECALCIFEROL (VITAMIN D3) 1,000 UNIT TABLET PO SCH (07:29)
[2018-04-12] MEDS: FLUoxetine HCL 20 MG CAPSULE PO SCH (07:29)
[2018-04-12] MEDS: CELECOXIB 100 MG CAPSULE PO SCH (07:30)
--- NOTE | 2018-04-12 11:28 | PN ---
DATE: 04/10/2018 This is a late entry for 04/10/2018 and covers elements not covered in my initial note. SUBJECTIVE: I met with the patient in the evening, staffed at a treatment team meeting with the entire team in the morning. The patient slept 6-3/4 hours previous evening. The social service staff have addressed at length concerns about the not wanting the patient to return home. Swallowing is somewhat better. REVIEW OF SYSTEMS: No CV, , pulmonary, eye system symptoms on review. MENTAL STATUS EXAM: Oriented to herself and situation. Speech coherent, less pressured. Abstraction fair, computation impaired, language function intact, attention span short. Mood and affect showing some improvement. Valproic acid level therapeutic at 79. LABORATORY DATA: Reviewed. IMPRESSION: Bipolar 1 disorder, mixed with psychotic features. Rest unchanged. PLAN: No change from initial note. MAN Cassy ALLEN MD DR: MILLER/mira JOB#: [id number] / [id number]
--- NOTE | 2018-04-12 11:28 | PN ---
DATE: 04/09/2018 PSYCHIATRIC PROGRESS NOTE This is a late entry for 04/09/2018 and covers elements not covered in my initial note. SUBJECTIVE: I met with the patient in the evening. The patient slept 5-1/4 hours previous evening. Nursing staff indicated had called and told the patient she was not coming home. The patient was crying, tearful, overwhelmed. Social service staff will address it with her . REVIEW OF SYSTEMS: No CV, , pulmonary, eye, ENT system symptoms on review. MENTAL STATUS EXAM: Oriented to herself and situation. Speech is coherent at times, somewhat pressured. Abstraction fair, computation impaired, language function intact. Attention span short, somewhat suspicious, but not very much. Swallowing is better. LABORATORY DATA: Reviewed. IMPRESSION: Unchanged from initial note, bipolar 1 disorder, mixed with psychotic features; anxiety disorder, unspecified. PLAN: Continue current psychotropics. Adjust further as clinically indicated. MAN Cassy ALLEN MD DR: MILLER/mira JOB#: [id number] / [id number]
[2018-04-12] MEDS: LOSARTAN 25 MG TABLET. PO SCH (13:19)
[2018-04-12] MEDS: ATENOLOL 50 MG TABLET PO SCH (13:20)
[2018-04-12 16:09] VITALS: BP 119/80
[2018-04-12] MEDS: PRAZOSIN 1 MG CAPSULE. PO SCH (19:57)
[2018-04-12] MEDS: MONTELUKAST 10 MG TABLET. PO SCH (19:58)
[2018-04-12] MEDS: risperiDONE 0.5 MG TABLET. PO SCH (19:58)
[2018-04-12] MEDS: MIRTAZAPINE 7.5 MG TABLET. PO SCH (19:58)
--- NOTE | 2018-04-12 22:48 | PDOC ---
Exam Note: Bharathi Note: Please also refer to the separate dictated note~for this date of service dictated separately.~Patient seen individually. Discussed the patient with Nursing staff reviewed the chart.~Reviewed interim history and current functioning. Reviewed vital signs,~Labs/ Radiology~and current medications noted below. Continue current treatment with the changes noted in the dictated addendum note Assessment: Vital Signs: Vital Signs Date Time Temp Pulse Resp B/P (MAP) Pulse Ox O2 Delivery O2 Flow Rate FiO2 04/12/18 19:57 78 119/80 04/12/18 16:09 98.5 16 99 04/09/18 16:26 Room Air I&O Intake and Output 04/12/18 07:00 Intake Total 840 ml Balance 840 ml Intake Oral 840 ml # Voids 1 Current Medications: Meds: Current Medications Acetaminophen (Tylenol) 650 mg PRN Q6HRS PRN PO PAIN / TEMP; Start 03/30/18 at 23:15 Multi-Ingredient Ointment (Analgesic [place]) 1 maikel PRN QID PRN TP MUSCLE PAIN; Start 03/30/18 at 23:15 Al Hydroxide/Mg Hydroxide (Mylanta Plus Xs) 15 ml PRN AFTMEALHC PRN PO DYSPEPSIA; Start 03/30/18 at 23:15 Magnesium Hydroxide (Milk Of Magnesia) 2,400 mg PRN QHS PRN PO CONSTIPATION; Start 03/30/18 at 23:15 Vitamin D (Vitamin D3) 1,000 unit DAILY PO Last administered on 04/12/18at 07:29 ; Start 03/31/18 at 09:00 Cyclobenzaprine HCl (Flexeril) 10 mg PRN BID PRN PO MUSCLE PAIN; Start at 23:30 Fish Oil (Fish Oil) 1,000 mg DAILY PO Last administered on 04/12/18at 07:27; Start 03/31/18 at 09:00 Trimethoprim/ Sulfamethoxazole (Bactrim Ds) 1 tab BID PO Last administered on at 19:36; Start 03/31/18 at 09:00; Stop 04/08/18 at 08:41; Status DC Tramadol HCl (Ultram) 50 mg PRN BID PRN PO PAIN; Start 03/30/18 at 23:30 Atenolol (Tenormin) 50 mg DAILY PO Last administered on 04/12/18 13:20; Start 03/31/18 at 09:00 Celecoxib (CeleBREX) 200 mg DAILY PO Last administered on 04/12/18 07:30; Start 03/31/18 at 09:00 Citalopram Hydrobromide (CeleXA) 40 mg DAILY PO Last administered on 03/31/18 08:26; Start 03/31/18 at 09:00; Stop 03/31/18 at 19:31; Status DC Clonazepam (KlonoPIN) 1 mg TID PO Last administered on 04/02/18 13:02; Start 03/31/18 at 09:00; Stop 04/02/18 at 18:45; Status DC Mirtazapine (Remeron) 7.5 mg HS PO Last administered on 04/12/18 19:58; Start 03/31/18 at 21:00 Montelukast Sodium (Singulair) 10 mg HS PO Last administered on 04/12/18 19:58 ; Start 03/31/18 at 21:00 Oxybutynin Chloride (Ditropan) 5 mg TID PO Last administered on 04/12/18 19:57 ; Start 03/31/18 at 09:00 Pantoprazole Sodium (Protonix) 40 mg DAILYAC PO Last administered on 04/12/18 07:29; Start 03/31/18 at 07:30 Prazosin HCl (Minipress) 2 mg HS PO Last administered on 04/12/18 19:57; Start 03/31/18 at 21:00 Risperidone (RisperDAL) 1.5 mg HS PO Last administered on 04/02/18at 20:39; Start 03/31/18 at 21:00; Stop 04/04/18 at 18:09; Status DC Losartan Potassium (Cozaar) 25 mg DAILY PO Last administered on 04/12/18 13:19 ; Start 03/31/18 at 09:00 Lactobacillus Rhamnosus (Culturelle) 1 cap BID PO Last administered on 19:57; Start 03/31/18 at 21:00 Fluoxetine HCl (PROzac) 20 mg DAILY PO Last administered on 04/12/18 07:29; Start 04/01/18 at 09:00 Divalproex Sodium (Depakote Sprinkles) 250 mg BID PO Last administered on at 08:55; Start 04/01/18 at 21:00; Stop 04/05/18 at 13:57; Status DC Clonazepam (KlonoPIN) 1 mg BID PRN PO ANXIETY / AGITATION; Start 04/02/18 at 18 :45; Stop 04/02/18 at 18:45; Status DC Clonazepam (KlonoPIN) 0.5 mg PRN BID PRN PO ANXIETY / AGITATION; Start at 18:45 Risperidone (RisperDAL) 0.75 mg HS PO Last administered on 04/07/18at 19:38; Start 04/04/18 at 21:00; Stop 04/08/18 at 18:29; Status DC Divalproex Sodium (Depakote Sprinkles) 250 mg DAILY PO Last administered on at 07:28; Start 04/06/18 at 09:00 Divalproex Sodium (Depakote Sprinkles) 500 mg HS PO Last administered on at 19:57; Start 04/05/18 at 21:00 Risperidone (RisperDAL) 0.5 mg HS PO Last administered on 04/12/18at 19:58; Start 04/08/18 at 21:00 Active Scripts Active Sulfamethoxazole-Tmp Ds Tablet (Sulfamethoxazole/Trimethoprim) 1 Each Tablet 1 Tab PO BID 7 Days Reported Vitamin D3 (Cholecalciferol (Vitamin D3)) 1,000 Unit Tablet 1,000 Unit PO DAILY LAST DOSE GIVEN: DATE: TIME: NEXT DOSE DUE: DATE: TIME: Celecoxib 200 Mg Capsule 200 Mg PO DAILY LAST DOSE GIVEN: DATE: TIME: NEXT DOSE DUE: DATE: TIME: Oxybutynin Chloride Er (Oxybutynin Chloride) 15 Mg Tab.er.24 15 Mg PO DAILY LAST DOSE GIVEN: DATE: TIME: NEXT DOSE DUE: DATE: TIME: Fish Oil 1,000 Mg Capsule ([place]-3 Fatty Acids/Fish Oil) 1 Each Capsule 1,000 Mg PO DAILY LAST DOSE GIVEN: DATE: TIME: NEXT DOSE DUE: DATE: TIME: Pantoprazole Sodium 40 Mg Tablet.dr 40 Mg PO DAILY LAST DOSE GIVEN: DATE: TIME: NEXT DOSE DUE: DATE: TIME: Montelukast Sodium Tablet (Montelukast Sodium) 10 Mg Tablet 10 Mg PO HS LAST DOSE GIVEN: DATE: TIME: NEXT DOSE DUE: DATE: TIME: Tramadol Hcl (Tramadol HCl) 50 Mg Tablet 50 Mg PO PRN BID PRN LAST DOSE GIVEN: DATE: TIME: NEXT DOSE DUE: DATE: TIME: Cyclobenzaprine Hcl 10 Mg Tablet 10 Mg PO PRN BID PRN LAST DOSE GIVEN: DATE: 03/30/18 TIME: 0900 NEXT DOSE DUE: DATE:03/31/18 TIME:09 Telmisartan 20 Mg Tablet 20 Mg PO DAILY LAST DOSE GIVEN: DATE: TIME: NEXT DOSE DUE: DATE: TIME: Mirtazapine 15 Mg Tablet 7.5 Mg PO HS LAST DOSE GIVEN: DATE: TIME: NEXT DOSE DUE: DATE: TIME: Citalopram Hbr (Citalopram Hydrobromide) 40 Mg Tablet 40 Mg PO DAILY LAST DOSE GIVEN: DATE: TIME: NEXT DOSE DUE: DATE: TIME: Risperidone 1 Mg Tablet 1.5 Mg PO HS LAST DOSE GIVEN: DATE: TIME: NEXT DOSE DUE: DATE: TIME: Atenolol 50 Mg Tablet 50 Mg PO DAILY LAST DOSE GIVEN: DATE: TIME: NEXT DOSE DUE: DATE: TIME: Prazosin Hcl 2 Mg Capsule 2 Mg PO HS LAST DOSE GIVEN: DATE: TIME: NEXT DOSE DUE: DATE: TIME: Clonazepam 1 Mg Tablet 1 Mg PO TID LAST DOSE GIVEN: DATE: TIME: NEXT DOSE DUE: DATE: TIME: I have reviewed the current psychotropics carefully including drug interactions. Risk benefit ratio favors no change other than as noted in my dictated progress note. Diagnosis: Problems: (1) Anxiety disorder (2) Bipolar affective, mixed, sev w/ psych (3) Bipolar disorder, mixed (4) Impulse control disorder (5) Bipolar 1 disorder JULISSA ALLEN MD Apr 12, 2018 22:48
[2018-04-13] MEDS ORDERED: RISP0.5T3 PO (00:18)
[2018-04-13] MEDS ORDERED: OXYB5TAB7 PO (00:19)
[2018-04-13] MEDS ORDERED: DIVA125C PO ×2 (00:22→00:23)
[2018-04-13] MEDS ORDERED: ACET325T9 PO (00:22)
[2018-04-13] MEDS ORDERED: FLUO20CA8 PO (00:25)
[2018-04-13] MEDS ORDERED: LACT1CAP21 PO (00:27)
[2018-04-13] MEDS ORDERED: LOSA25TA4 PO (00:28)
[2018-04-13] MEDS ORDERED: MAG30ORA2 PO (00:29)
[2018-04-13] MEDS ORDERED: MAGN2400 PO (00:30)
[2018-04-13] MEDS ORDERED: METH29OI TP (00:31)
[2018-04-13 06:02] VITALS: BP 96/60
[2018-04-13] MEDS: PANTOPRAZOLE 40 MG TABLET. PO SCH (08:23)
[2018-04-13] MEDS: CELECOXIB 100 MG CAPSULE PO SCH (08:23)
[2018-04-13] MEDS: LACTOBACILLUS RHAMNOSUS GG 1 CAPSULE. PO SCH ×2 (08:23→19:59)
[2018-04-13] MEDS: DIVALPROEX 125 MG CAP.SPRINK PO SCH ×2 (08:24→19:59)
[2018-04-13] MEDS: OMEGA-3 FATTY ACIDS/FISH OIL 1,000 MG CAPSULE. PO SCH (08:25)
[2018-04-13] MEDS: CHOLECALCIFEROL (VITAMIN D3) 1,000 UNIT TABLET PO SCH (08:25)
[2018-04-13] MEDS: FLUoxetine HCL 20 MG CAPSULE PO SCH (08:25)
[2018-04-13] MEDS: OXYBUTYNIN CHLORIDE 5 MG TABLET PO SCH ×3 (08:25→19:59)
[2018-04-13] MEDS: ATENOLOL 50 MG TABLET PO SCH (09:00)
[2018-04-13] MEDS: LOSARTAN 25 MG TABLET. PO SCH (09:00)
[2018-04-13 16:15] VITALS: BP 162/79
[2018-04-13] MEDS: MIRTAZAPINE 7.5 MG TABLET. PO SCH (19:59)
[2018-04-13] MEDS: risperiDONE 0.5 MG TABLET. PO SCH (19:59)
[2018-04-13] MEDS: MONTELUKAST 10 MG TABLET. PO SCH (19:59)
[2018-04-13] MEDS: PRAZOSIN 1 MG CAPSULE. PO SCH (20:00)
--- NOTE | 2018-04-13 20:57 | PDOC ---
Exam Note: Bharathi Note: Please also refer to the separate dictated note~for this date of service dictated separately.~Patient seen individually. Discussed the patient with Nursing staff reviewed the chart.~Reviewed interim history and current functioning. Reviewed vital signs,~Labs/ Radiology~and current medications noted below. Continue current treatment with the changes noted in the dictated addendum note Assessment: Vital Signs: Vital Signs Date Time Temp Pulse Resp B/P (MAP) Pulse Ox O2 Delivery O2 Flow Rate FiO2 04/13/18 20:00 71 162/79 04/13/18 16:15 98.0 16 95 04/09/18 16:26 Room Air I&O Intake and Output 04/13/18 07:00 Intake Total 1640 ml Balance 1640 ml Intake Oral 1640 ml # Voids 1 Current Medications: Meds: Current Medications Acetaminophen (Tylenol) 650 mg PRN Q6HRS PRN PO PAIN / TEMP; Start 03/30/18 at 23:15 Multi-Ingredient Ointment (Analgesic [place]) 1 kevin PRN QID PRN TP MUSCLE PAIN; Start 03/30/18 at 23:15 Al Hydroxide/Mg Hydroxide (Mylanta Plus Xs) 15 ml PRN AFTMEALHC PRN PO DYSPEPSIA; Start 03/30/18 at 23:15 Magnesium Hydroxide (Milk Of Magnesia) 2,400 mg PRN QHS PRN PO CONSTIPATION; Start 03/30/18 at 23:15 Vitamin D (Vitamin D3) 1,000 unit DAILY PO Last administered on 04/13/18at 08:25 ; Start 03/31/18 at 09:00 Cyclobenzaprine HCl (Flexeril) 10 mg PRN BID PRN PO MUSCLE PAIN; Start at 23:30 Fish Oil (Fish Oil) 1,000 mg DAILY PO Last administered on 04/13/18at 08:25; Start 03/31/18 at 09:00 Trimethoprim/ Sulfamethoxazole (Bactrim Ds) 1 tab BID PO Last administered on at 19:36; Start 03/31/18 at 09:00; Stop 04/08/18 at 08:41; Status DC Tramadol HCl (Ultram) 50 mg PRN BID PRN PO PAIN; Start 03/30/18 at 23:30 Atenolol (Tenormin) 50 mg DAILY PO Last administered on 04/12/18 13:20; Start 03/31/18 at 09:00 Celecoxib (CeleBREX) 200 mg DAILY PO Last administered on 04/13/18 08:23; Start 03/31/18 at 09:00 Citalopram Hydrobromide (CeleXA) 40 mg DAILY PO Last administered on 03/31/18 08:26; Start 03/31/18 at 09:00; Stop 03/31/18 at 19:31; Status DC Clonazepam (KlonoPIN) 1 mg TID PO Last administered on 04/02/18 13:02; Start 03/31/18 at 09:00; Stop 04/02/18 at 18:45; Status DC Mirtazapine (Remeron) 7.5 mg HS PO Last administered on 04/13/18 19:59; Start 03/31/18 at 21:00 Montelukast Sodium (Singulair) 10 mg HS PO Last administered on 04/13/18 19:59 ; Start 03/31/18 at 21:00 Oxybutynin Chloride (Ditropan) 5 mg TID PO Last administered on 04/13/18 19:59 ; Start 03/31/18 at 09:00 Pantoprazole Sodium (Protonix) 40 mg DAILYAC PO Last administered on 04/13/18 08:23; Start 03/31/18 at 07:30 Prazosin HCl (Minipress) 2 mg HS PO Last administered on 04/13/18 20:00; Start 03/31/18 at 21:00 Risperidone (RisperDAL) 1.5 mg HS PO Last administered on 04/02/18 20:39; Start 03/31/18 at 21:00; Stop 04/04/18 at 18:09; Status DC Losartan Potassium (Cozaar) 25 mg DAILY PO Last administered on 04/12/18 13:19 ; Start 03/31/18 at 09:00 Lactobacillus Rhamnosus (Culturelle) 1 cap BID PO Last administered on 19:59; Start 03/31/18 at 21:00 Fluoxetine HCl (PROzac) 20 mg DAILY PO Last administered on 04/13/18 08:25; Start 04/01/18 at 09:00 Divalproex Sodium (Depakote Sprinkles) 250 mg BID PO Last administered on at 08:55; Start 04/01/18 at 21:00; Stop 04/05/18 at 13:57; Status DC Clonazepam (KlonoPIN) 1 mg BID PRN PO ANXIETY / AGITATION; Start 04/02/18 at 18 :45; Stop 04/02/18 at 18:45; Status DC Clonazepam (KlonoPIN) 0.5 mg PRN BID PRN PO ANXIETY / AGITATION; Start at 18:45 Risperidone (RisperDAL) 0.75 mg HS PO Last administered on 04/07/18at 19:38; Start 04/04/18 at 21:00; Stop 04/08/18 at 18:29; Status DC Divalproex Sodium (Depakote Sprinkles) 250 mg DAILY PO Last administered on at 08:24; Start 04/06/18 at 09:00 Divalproex Sodium (Depakote Sprinkles) 500 mg HS PO Last administered on at 19:59; Start 04/05/18 at 21:00 Risperidone (RisperDAL) 0.5 mg HS PO Last administered on 04/13/18at 19:59; Start 04/08/18 at 21:00 Active Scripts Active Sulfamethoxazole-Tmp Ds Tablet (Sulfamethoxazole/Trimethoprim) 1 Each Tablet 1 Tab PO BID 7 Days Reported Analgesic [place] (Methyl Salicylate/Menthol) 28 Gm Oint...g. 1 Kevin TP PRN QID PRN Milk Of Magnesia (Magnesium Hydroxide) 2,400 Mg/10 Ml Oral.susp 2,400 Mg PO PRN QHS PRN Mag-Al Plus Xs Suspension (Mag Hydrox/Al Hydrox/Simeth) 30 Ml Oral.susp 15 Ml PO PRN AFTMEALHC PRN Losartan Potassium 25 Mg Tablet 25 Mg PO DAILY Culturelle (Lactobacillus Rhamnosus Gg) 1 Each Capsule 1 Each PO BID Fluoxetine Hcl 20 Mg Capsule 20 Mg PO DAILY Depakote Sprinkle (Divalproex Sodium) 125 Mg Cap.sprink 500 Mg PO QHS Depakote Sprinkle (Divalproex Sodium) 125 Mg Cap.sprink 250 Mg PO DAILY Tylenol (Acetaminophen) 325 Mg Tablet 650 Mg PO PRN Q6HRS PRN Oxybutynin Chloride 5 Mg Tablet 5 Mg PO TID Risperidone 0.5 Mg Tablet 0.5 Mg PO QHS Vitamin D3 (Cholecalciferol (Vitamin D3)) 1,000 Unit Tablet 1,000 Unit PO DAILY LAST DOSE GIVEN: DATE: TIME: NEXT DOSE DUE: DATE: TIME: Celecoxib 200 Mg Capsule 200 Mg PO DAILY LAST DOSE GIVEN: DATE: TIME: NEXT DOSE DUE: DATE: TIME: Oxybutynin Chloride Er (Oxybutynin Chloride) 15 Mg Tab.er.24 15 Mg PO DAILY LAST DOSE GIVEN: DATE: TIME: NEXT DOSE DUE: DATE: TIME: Fish Oil 1,000 Mg Capsule ([place]-3 Fatty Acids/Fish Oil) 1 Each Capsule 1,000 Mg PO DAILY LAST DOSE GIVEN: DATE: TIME: NEXT DOSE DUE: DATE: TIME: Pantoprazole Sodium 40 Mg Tablet.dr 40 Mg PO DAILY LAST DOSE GIVEN: DATE: TIME: NEXT DOSE DUE: DATE: TIME: Montelukast Sodium Tablet (Montelukast Sodium) 10 Mg Tablet 10 Mg PO HS LAST DOSE GIVEN: DATE: TIME: NEXT DOSE DUE: DATE: TIME: Tramadol Hcl (Tramadol HCl) 50 Mg Tablet 50 Mg PO PRN BID PRN LAST DOSE GIVEN: DATE: TIME: NEXT DOSE DUE: DATE: TIME: Cyclobenzaprine Hcl 10 Mg Tablet 10 Mg PO PRN BID PRN LAST DOSE GIVEN: DATE: 03/30/18 TIME: 0900 NEXT DOSE DUE: DATE:03/31/18 TIME:0900 Telmisartan 20 Mg Tablet 20 Mg PO DAILY LAST DOSE GIVEN: DATE: TIME: NEXT DOSE DUE: DATE: TIME: Mirtazapine 15 Mg Tablet 7.5 Mg PO HS LAST DOSE GIVEN: DATE: TIME: NEXT DOSE DUE: DATE: TIME: Citalopram Hbr (Citalopram Hydrobromide) 40 Mg Tablet 40 Mg PO DAILY LAST DOSE GIVEN: DATE: TIME: NEXT DOSE DUE: DATE: TIME: Risperidone 1 Mg Tablet 1.5 Mg PO HS LAST DOSE GIVEN: DATE: TIME: NEXT DOSE DUE: DATE: TIME: Atenolol 50 Mg Tablet 50 Mg PO DAILY LAST DOSE GIVEN: DATE: TIME: NEXT DOSE DUE: DATE: TIME: Prazosin Hcl 2 Mg Capsule 2 Mg PO HS LAST DOSE GIVEN: DATE: TIME: NEXT DOSE DUE: DATE: TIME: Clonazepam 1 Mg Tablet 1 Mg PO TID LAST DOSE GIVEN: DATE: TIME: NEXT DOSE DUE: DATE: TIME: I have reviewed the current psychotropics carefully including drug interactions. Risk benefit ratio favors no change other than as noted in my dictated progress note. Diagnosis: Problems: (1) Anxiety disorder (2) Bipolar affective, mixed, sev w/ psych (3) UTI (urinary tract infection) (4) Bipolar disorder, mixed (5) Impulse control disorder (6) Bipolar 1 disorder JULISSA ALLEN MD Apr 13, 2018 20:57
--- NOTE | 2018-04-14 00:18 | PN ---
DATE: 04/11/2018 This late entry, 04/11/2018, covers elements not covered in my initial note. SUBJECTIVE: I met with the patient in the evening. The patient slept 6-1/4 hours previous evening, doing a little better. I did talk to her who is somewhat dismissive of her. REVIEW OF SYSTEMS: No CV, , pulmonary, eye, ENT system symptoms on review. MENTAL STATUS EXAM: Oriented to herself and situation. Speech is coherent, somewhat pressured. Abstraction fair, computation impaired, language function intact. Mood and affect appears improved. IMPRESSION: Bipolar I disorder, mixed. Rest unchanged. PLAN: Continue psychotropics from initial note. MAN Cassy ALLEN MD DR: MILLER/mira JOB#: [id number] / [id number]
--- NOTE | 2018-04-14 00:21 | PN ---
DATE: 04/12/2018 This late entry, 04/12/2018, covers elements not covered in my initial note. SUBJECTIVE: The patient slept 7-1/4 hours previous evening, compliant with medication, blood pressure low in the morning, more compliant rest of the day. No dizziness. REVIEW OF SYSTEMS: No CV, , pulmonary, eye, ENT system symptoms on review. She has had no choking while eating and drinking. MENTAL STATUS EXAM: Oriented to herself and situation. Speech remains somewhat rapid at times typical for her. Abstraction fair, computation impaired, language function intact. Mood and affect showing more stability. LABORATORY DATA: Reviewed. IMPRESSION: Unchanged from initial note. PLAN: No change from initial note. JULISSA ALLEN MD DR: MILLER/mira JOB#: [id number] / [id number]
[2018-04-14 06:32] VITALS: BP 92/60
[2018-04-14] MEDS: PANTOPRAZOLE 40 MG TABLET. PO SCH (07:31)
[2018-04-14] MEDS: LACTOBACILLUS RHAMNOSUS GG 1 CAPSULE. PO SCH (07:32)
[2018-04-14] MEDS: FLUoxetine HCL 20 MG CAPSULE PO SCH (07:32)
[2018-04-14] MEDS: OXYBUTYNIN CHLORIDE 5 MG TABLET PO SCH (07:33)
[2018-04-14] MEDS: OMEGA-3 FATTY ACIDS/FISH OIL 1,000 MG CAPSULE. PO SCH (07:33)
[2018-04-14] MEDS: CELECOXIB 100 MG CAPSULE PO SCH (07:33)
[2018-04-14] MEDS: DIVALPROEX 125 MG CAP.SPRINK PO SCH (07:33)
[2018-04-14] MEDS: CHOLECALCIFEROL (VITAMIN D3) 1,000 UNIT TABLET PO SCH (07:33)
[2018-04-14 07:48] VITALS: BP 92/60
[2018-04-14] MEDS: LOSARTAN 25 MG TABLET. PO SCH (07:48)
[2018-04-14] MEDS: ATENOLOL 50 MG TABLET PO SCH (07:48)
[2018-04-14] MEDS ORDERED: CLON0.5T11 PO (09:04)
--- NOTE | 2018-04-14 22:09 | PDOC ---
Exam Note: Bharathi Note: Please also refer to the separate dictated note~for this date of service dictated separately.~Patient seen individually. Discussed the patient with Nursing staff reviewed the chart.~Reviewed interim history and current functioning. Reviewed vital signs,~Labs/ Radiology~and current medications noted below. Continue current treatment with the changes noted in the dictated addendum note Assessment: Vital Signs: Vital Signs Date Time Temp Pulse Resp B/P (MAP) Pulse Ox O2 Delivery O2 Flow Rate FiO2 04/14/18 07:48 82 92/60 04/14/18 06:32 97.8 20 95 04/09/18 16:26 Room Air I&O Intake and Output 04/14/18 07:00 Intake Total 1080 ml Balance 1080 ml Intake Oral 1080 ml # Bowel Movements 1 Current Medications: Meds: Current Medications Acetaminophen (Tylenol) 650 mg PRN Q6HRS PRN PO PAIN / TEMP; Start 03/30/18 at 23:15; Stop 04/14/18 at 11:08; Status DC Multi-Ingredient Ointment (Analgesic [place]) 1 maikel PRN QID PRN TP MUSCLE PAIN; Start 03/30/18 at 23:15; Stop 04/14/18 at 11:08; Status DC Al Hydroxide/Mg Hydroxide (Mylanta Plus Xs) 15 ml PRN AFTMEALHC PRN PO DYSPEPSIA; Start 03/30/18 at 23:15; Stop 04/14/18 at 11:08; Status DC Magnesium Hydroxide (Milk Of Magnesia) 2,400 mg PRN QHS PRN PO CONSTIPATION; Start 03/30/18 at 23:15; Stop 04/14/18 at 11:08; Status DC Vitamin D (Vitamin D3) 1,000 unit DAILY PO Last administered on 04/14/18at 07:33 ; Start 03/31/18 at 09:00; Stop 04/14/18 at 11:08; Status DC Cyclobenzaprine HCl (Flexeril) 10 mg PRN BID PRN PO MUSCLE PAIN; Start at 23:30; Stop 04/14/18 at 11:08; Status DC Fish Oil (Fish Oil) 1,000 mg DAILY PO Last administered on 04/14/18at 07:33; Start 03/31/18 at 09:00; Stop 04/14/18 at 11:08; Status DC Trimethoprim/ Sulfamethoxazole (Bactrim Ds) 1 tab BID PO Last administered on at 19:36; Start 03/31/18 at 09:00; Stop 04/08/18 at 08:41; Status DC Tramadol HCl (Ultram) 50 mg PRN BID PRN PO PAIN; Start 03/30/18 at 23:30; Stop 04/14/18 at 11:08; Status DC Atenolol (Tenormin) 50 mg DAILY PO Last administered on 04/12/18at 13:20; Start 03/31/18 at 09:00; Stop 04/14/18 at 11:08; Status DC Celecoxib (CeleBREX) 200 mg DAILY PO Last administered on 04/14/18at 07:33; Start 03/31/18 at 09:00; Stop 04/14/18 at 11:08; Status DC Citalopram Hydrobromide (CeleXA) 40 mg DAILY PO Last administered on 03/31/18at 08:26; Start 03/31/18 at 09:00; Stop 03/31/18 at 19:31; Status DC Clonazepam (KlonoPIN) 1 mg TID PO Last administered on 04/02/18at 13:02; Start 03/31/18 at 09:00; Stop 04/02/18 at 18:45; Status DC Mirtazapine (Remeron) 7.5 mg HS PO Last administered on 04/13/18at 19:59; Start 03/31/18 at 21:00; Stop 04/14/18 at 11:08; Status DC Montelukast Sodium (Singulair) 10 mg HS PO Last administered on 04/13/18at 19:59 ; Start 03/31/18 at 21:00; Stop 04/14/18 at 11:08; Status DC Oxybutynin Chloride (Ditropan) 5 mg TID PO Last administered on 04/14/18at 07:33 ; Start 03/31/18 at 09:00; Stop 04/14/18 at 11:08; Status DC Pantoprazole Sodium (Protonix) 40 mg DAILYAC PO Last administered on 04/14/18at 07:31; Start 03/31/18 at 07:30; Stop 04/14/18 at 11:08; Status DC Prazosin HCl (Minipress) 2 mg HS PO Last administered on 04/13/18at 20:00; Start 03/31/18 at 21:00; Stop 04/14/18 at 11:08; Status DC Risperidone (RisperDAL) 1.5 mg HS PO Last administered on 04/02/18at 20:39; Start 03/31/18 at 21:00; Stop 04/04/18 at 18:09; Status DC Losartan Potassium (Cozaar) 25 mg DAILY PO Last administered on 04/12/18at 13:19 ; Start 03/31/18 at 09:00; Stop 04/14/18 at 11:08; Status DC Lactobacillus Rhamnosus (Culturelle) 1 cap BID PO Last administered on at 07:32; Start 03/31/18 at 21:00; Stop 04/14/18 at 11:08; Status DC Fluoxetine HCl (PROzac) 20 mg DAILY PO Last administered on 04/14/18at 07:32; Start 04/01/18 at 09:00; Stop 04/14/18 at 11:08; Status DC Divalproex Sodium (Depakote Sprinkles) 250 mg BID PO Last administered on at 08:55; Start 04/01/18 at 21:00; Stop 04/05/18 at 13:57; Status DC Clonazepam (KlonoPIN) 1 mg BID PRN PO ANXIETY / AGITATION; Start 04/02/18 at 18 :45; Stop 04/02/18 at 18:45; Status DC Clonazepam (KlonoPIN) 0.5 mg PRN BID PRN PO ANXIETY / AGITATION; Start at 18:45; Stop 04/14/18 at 11:08; Status DC Risperidone (RisperDAL) 0.75 mg HS PO Last administered on 04/07/18at 19:38; Start 04/04/18 at 21:00; Stop 04/08/18 at 18:29; Status DC Divalproex Sodium (Depakote Sprinkles) 250 mg DAILY PO Last administered on at 07:33; Start 04/06/18 at 09:00; Stop 04/14/18 at 11:08; Status DC Divalproex Sodium (Depakote Sprinkles) 500 mg HS PO Last administered on at 19:59; Start 04/05/18 at 21:00; Stop 04/14/18 at 11:08; Status DC Risperidone (RisperDAL) 0.5 mg HS PO Last administered on 04/13/18at 19:59; Start 04/08/18 at 21:00; Stop 04/14/18 at 11:08; Status DC Active Scripts Active Sulfamethoxazole-Tmp Ds Tablet (Sulfamethoxazole/Trimethoprim) 1 Each Tablet 1 Tab PO BID 7 Days Reported Clonazepam 0.5 Mg Tablet 0.5 Mg PO PRN BID PRN Fluoxetine Hcl 20 Mg Capsule 20 Mg PO DAILY Depakote Sprinkle (Divalproex Sodium) 125 Mg Cap.sprink 500 Mg PO QHS Depakote Sprinkle (Divalproex Sodium) 125 Mg Cap.sprink 250 Mg PO DAILY Tylenol (Acetaminophen) 325 Mg Tablet 650 Mg PO PRN Q6HRS PRN Oxybutynin Chloride 5 Mg Tablet 5 Mg PO TID Risperidone 0.5 Mg Tablet 0.5 Mg PO QHS Vitamin D3 (Cholecalciferol (Vitamin D3)) 1,000 Unit Tablet 1,000 Unit PO DAILY LAST DOSE GIVEN: DATE: TIME: NEXT DOSE DUE: DATE: TIME: Celecoxib 200 Mg Capsule 200 Mg PO DAILY LAST DOSE GIVEN: DATE: TIME: NEXT DOSE DUE: DATE: TIME: Fish Oil 1,000 Mg Capsule ([place]-3 Fatty Acids/Fish Oil) 1 Each Capsule 1,000 Mg PO DAILY LAST DOSE GIVEN: DATE: TIME: NEXT DOSE DUE: DATE: TIME: Pantoprazole Sodium 40 Mg Tablet.dr 40 Mg PO DAILY LAST DOSE GIVEN: DATE: TIME: NEXT DOSE DUE: DATE: TIME: Montelukast Sodium Tablet (Montelukast Sodium) 10 Mg Tablet 10 Mg PO HS LAST DOSE GIVEN: DATE: TIME: NEXT DOSE DUE: DATE: TIME: Tramadol Hcl (Tramadol HCl) 50 Mg Tablet 50 Mg PO PRN BID PRN LAST DOSE GIVEN: DATE: TIME: NEXT DOSE DUE: DATE: TIME: Cyclobenzaprine Hcl 10 Mg Tablet 10 Mg PO PRN BID PRN LAST DOSE GIVEN: DATE: 03/30/18 TIME: 0900 NEXT DOSE DUE: DATE:03/31/18 TIME:0900 Mirtazapine 15 Mg Tablet 7.5 Mg PO HS LAST DOSE GIVEN: DATE: TIME: NEXT DOSE DUE: DATE: TIME: Atenolol 50 Mg Tablet 50 Mg PO DAILY LAST DOSE GIVEN: DATE: TIME: NEXT DOSE DUE: DATE: TIME: Prazosin Hcl 2 Mg Capsule 2 Mg PO HS LAST DOSE GIVEN: DATE: TIME: NEXT DOSE DUE: DATE: TIME: I have reviewed the current psychotropics carefully including drug interactions. Risk benefit ratio favors no change other than as noted in my dictated progress note. Diagnosis: Problems: (1) Impulse control disorder (2) Bipolar affective, mixed, sev w/ psych (3) Anxiety disorder JULISSA ALLEN MD Apr 14, 2018 22:09
--- NOTE | 2018-04-15 14:17 | PN ---
DATE: 04/13/2018 PSYCHIATRIC PROGRESS NOTE\ This is a late entry 04/13/2018, covers elements not covered in my initial note. SUBJECTIVE: I met with the patient in the evening. The patient slept 7 hours previous evening, has had a good day. She seems calmer, less anxious. REVIEW OF SYSTEMS: No CV, , pulmonary, eye, ENT system symptoms on review. MENTAL STATUS EXAM: Reasonably oriented. Speech coherent, less pressured. Abstraction fair, computation impaired, language function intact, attention span short. Mood and affect showing improvement. LABORATORY DATA: Reviewed. IMPRESSION: Bipolar 1 disorder, mixed with psychotic features. Valproic acid level is 79; anxiety disorder, unspecified. PLAN: No change from initial note. MAN Cassy ALLEN MD DR: MILLER/mira JOB#: [id number] / [id number]
--- NOTE | 2018-04-15 23:22 | DS ---
DATE OF DISCHARGE: 04/14/2018 DISCHARGE SUMMARY/PSYCHIATRIC PROGRESS NOTE This is a late entry date of service 04/14/2018 covers elements, not covered in my initial note. REASON FOR ADMISSION: Please refer to the admission history for details. Briefly, the patient is a 58-year-old female referred to us from [facility] Medical/Surgical floor after she is medically stabilized per Dr. Katz and continued to have marked mood swings with periods of increased confusion, tearfulness and depression. She had failed outpatient psychiatric interventions and psychiatric followup on by myself. was unable to handle her at home, was insistent, he would not have a home and she had failed outpatient psychiatric interventions at the [facility]. SIGNIFICANT FINDINGS AND CLINICAL COURSE: Following admission, the patient was seen daily individually by myself, followed medically per Dr. Katz/Dr. Torres. The patient remained initially quite labile in her mood, anxious, restless, distractable, extremely rushed with racing thoughts. She appeared to be choking consequent to her ____ she would try and swallow and speech evaluation was unremarkable. Very careful review of her history was suggestive of bipolar disorder, depressed, and her psychotropics were adjusted to address this. She seemed to respond to a combination of Depakote Sprinkles 250 mg in the morning and 500 at night with a level therapeutic at 79. She is also on prazosin 2 mg at bedtime for diagnosis of PTSD, Risperdal 0.5 mg at bedtime, which was a significant reduction from the dosage she was taking at admission. She is also on Klonopin 0.5 mg b.i.d. p.r.n., Remeron 7.5 mg at bedtime, Prozac 20 mg a day, prazosin 2 mg at bedtime. REVIEW OF SYSTEMS: Prior to discharge, 04/14/2018, no CV, , pulmonary, eye, ENT system symptoms on review. MENTAL STATUS EXAM: Reasonably oriented. Speech coherent, less pressured. Abstraction fair, computation impaired, language function intact, attention span short. Mood and affect, lability was much improved lab. CONDITION AT DISCHARGE: Improved. No suicidal or homicidal ideation at discharge. FINAL DIAGNOSES: Bipolar 1 disorder, depressed with psychotic features in partial remission; anxiety disorder, unspecified; impulse control disorder, unspecified. Post traumatic stress disorder, status post traumatic brain injury. Rest unchanged from admission and she had completed a course of antibiotics for urinary tract infection while on . DISCHARGE MEDICATIONS: Please refer to the MRAD. DISCHARGE INSTRUCTIONS: Outpatient psychiatric followup at the [facility], medical with her primary care physician. Time for discharge day management greater than 30 minutes. MAN Cassy ALLEN MD DR: MILLER/mira JOB#: [id number] / [id number]
== END 2018-04-14 10:45 | disposition home or self-care (01) | DRG 885 ==
LOC: GEROPSY 20:30
PROVIDERS: ADMIT Psychiatry & Neurology Psychiatry; ATTEND Psychiatry & Neurology Psychiatry
DX: F31.64 Bipolar disorder, current episode mixed, severe, with psychotic features (principal); N39.0 Urinary tract infection, site not specified; F09 Unspecified mental disorder due to known physiological condition; F43.10 Post-traumatic stress disorder, unspecified; F63.9 Impulse disorder, unspecified; I10 Essential (primary) hypertension; K21.9 Gastro-esophageal reflux disease without esophagitis; G89.29 Other chronic pain; R29.6 Repeated falls; Z79.899 Other long term (current) drug therapy; Z80.1 Family history of malignant neoplasm of trachea, bronchus and lung; Z85.41 Personal history of malignant neoplasm of cervix uteri; Z87.820 Personal history of traumatic brain injury; Z91.040 Latex allergy status; Z91.048 Other nonmedicinal substance allergy status
CPT/HCPCS: 36415; 71046; 80053; 80061; 80164; 82306; 82607; 82947; 83036; 83735; 84436; 84443; 84480; 85025; 86592; 92610